=== PATIENT | female | born 1940 | race Caucasian/White ===

== ENCOUNTER → 2018-04-11 00:14 | Outpatient (CLI) | payer MEDICARE, MEDICAID, SELFPAY ==
--- NOTE | 2018-04-11 12:52 | MERGE_ITS ---
*[facility]* *[facility]* [address] [place] [address] Date of study: 04/11/2018 Transthoracic Echocardiography M-mode, complete 2D, complete spectral Doppler, and color Doppler *STUDY CONCLUSIONS* Summary: 1. Left ventricle: The cavity size was normal. The estimated ejection fraction was 65%. Stroke volume/bsa (LVOT, Doppler): 31ml/m^2. 2. Aortic valve: There was mild stenosis. Peak velocity (S): 1.6m/sec. Mean gradient (S): 4.8mm Hg. VTI ratio of LVOT to aortic valve: 0.61. Valve area (VTI): 1.6cm^2. 3. Mitral valve: There was moderate regurgitation. 4. Right ventricle: The cavity size was normal. Wall thickness was normal. Systolic function was normal. 5. Atrial septum: No defect or patent foramen ovale was identified. 6. Pulmonary arteries: Pulmonary systolic pressure was in the range of 20mm Hg to 30mm Hg. 7. Inferior vena cava: The vessel was normal in size. The respirophasic diameter changes were in the normal range (greater than or equal to 50%), consistent with normal central venous pressure. *PATIENT PRESENTATION* Height: 157.5cm ((62in) ) S/D Pressure: Weight: 42.2kg ((92.8lb) ) BSA: 1.35m^2 Test start time: 12:40 PM. Test stop time: 01:00 PM. ORDERING Sam Hartley MD REFERRING Sam Hartley MD PERFORMING Unknown PERFORMING [facility] [employer] CRANE Aurelia Bueno *PROCEDURE DATA* Procedure information: This study was interpreted by [facility]. Pertinent images and digital data are archived for permanent storage and are available for subsequent review. Comparison was made to the study of 06/25/2017. Transthoracic echocardiography. M-mode, complete 2D, complete spectral Doppler, and color Doppler. A Transthoracic Echocardiogram was performed. Scanning was performed from the parasternal, apical, subcostal, and suprasternal notch acoustic windows. Images were obtained using an FluGenusAQS 2000 cardiac ultrasound machine. Image quality was adequate. Study completion: The patient tolerated the procedure well. *CARDIAC ANATOMY* Left ventricle: The cavity size was normal. The estimated ejection fraction was 65%. The tissue Doppler parameters were normal. There was no evidence of elevated ventricular filling pressure by Doppler parameters. Aortic valve: Doppler: There was mild stenosis. VTI ratio of LVOT to aortic valve: 0.61. Valve area (VTI): 1.6cm^2. Indexed valve area (VTI): 1.2cm^2/m^2. Peak velocity ratio of LVOT to aortic valve: 0.29. Valve area (Vmax): 0.8cm^2. Indexed valve area (Vmax): 0.6cm^2/m^2. Mean velocity ratio of LVOT to aortic valve: 0.47. Valve area (Vmean): 1.3cm^2. Indexed valve area (Vmean): 0.9cm^2/m^2. Mean gradient (S): 4.8mm Hg. Peak gradient (S): 10.1mm Hg. Aorta: Aortic root: The aortic root was normal in size. Mitral valve: Doppler: There was no evidence for stenosis. There was moderate regurgitation. Valve area by pressure half-time: 3.9cm^2. Indexed valve area by pressure half-time: 2.9cm^2/m^2. Left atrium: The atrium was normal in size. Atrial septum: No defect or patent foramen ovale was identified. Right ventricle: The cavity size was normal. Wall thickness was normal. Systolic function was normal. Pulmonic valve: Doppler: There was no evidence for stenosis. There was no significant regurgitation. Peak gradient (S): 2.9mm Hg. Tricuspid valve: Doppler: There was mild regurgitation. Pulmonary artery: Poorly visualized. Pulmonary systolic pressure was in the range of 20mm Hg to 30mm Hg. Right atrium: The atrium was normal in size. Pericardium: There was no pericardial effusion. Systemic veins: Inferior vena cava: The vessel was normal in size. The respirophasic diameter changes were in the normal range (greater than or equal to 50%), consistent with normal central venous pressure. Measurements Left ventricle Value 06/25/2017 Reference LV ID, ED, PLAX 4.3 cm 4.1 3.5 - 6.0 LV ID, ES, PLAX 2.6 cm 2.1 2.1 - 4.0 LV PW thickness, ED, PLAX 0.9 cm 1.0 LV end-diastolic volume, 59 ml 68 1-p A2C LV ejection fraction, 1-p 35 % 63 A2C LV end-diastolic volume, 78 ml 57 1-p A4C LV ejection fraction, 1-p 47 % 63 A4C LV e', lateral 0.076 m/sec LV E/e', lateral 9 LV e', medial 0.061 m/sec LV E/e', medial 11 LV e', average 0.068 m/sec LV E/e', average 10 Ventricular septum Value 06/25/2017 Reference IVS thickness, ED, PLAX 0.9 cm 1.0 LVOT Value 06/25/2017 Reference LVOT ID, A-P 1.8 cm LVOT area 2.7 cm^2 3.1 LVOT peak velocity, S 0.47 m/sec 0.94 LVOT mean velocity, S 0.48 m/sec LVOT VTI, S 15.8 cm 18.9 LVOT peak gradient, S 0.9 mm Hg LVOT mean gradient, S 1.2 mm Hg 1.7 Stroke volume (SV), LVOT 42 ml 59 DP Stroke index (SV/bsa), 31 ml/m^2 47 LVOT DP Aortic valve Value 06/25/2017 Reference Aortic valve peak 1.6 m/sec 2.3 velocity, S Aortic valve mean 1 m/sec velocity, S Aortic valve VTI, S 26.1 cm Aortic mean gradient, S 4.8 mm Hg 7 Aortic peak gradient, S 10.1 mm Hg 20.6 VTI ratio, LVOT/AV 0.61 Aortic valve area, VTI 1.6 cm^2 1.5 Velocity ratio, peak, 0.29 LVOT/AV Aortic valve area, peak 0.8 cm^2 velocity Velocity ratio, mean, 0.47 LVOT/AV Aortic valve area, mean 1.3 cm^2 velocity Aortic valve area/bsa, 0.9 cm^2/m^2 mean velocity Aorta Value 06/25/2017 Reference Aortic root ID, ED 2.8 cm Left atrium Value 06/25/2017 Reference LA ID, A-P, ES 3.3 cm LA ID/bsa, A-P (H) 2.4 cm/m^2 <=2.2 LA area, ES, A4C 17.7 cm^2 16.6 8.8 - 23.4 LA/aortic root ratio 1.18 1.41 Mitral valve Value 06/25/2017 Reference Mitral E-wave peak 0.69 m/sec 0.94 velocity Mitral A-wave peak 0.86 m/sec 0.9 velocity Mitral deceleration time 197 ms 150 - 230 Mitral pressure half-time 57 ms 44 Mitral E/A ratio, peak 0.8 1.04 Mitral valve area, PHT, DP 3.9 cm^2 5 Tricuspid valve Value 06/25/2017 Reference Tricuspid regurg peak 2.4 m/sec 2.4 velocity Tricuspid peak RV-RA 23.9 mm Hg 22.3 gradient Right atrium Value 06/25/2017 Reference RA area, ES, A4C (L) 8.1 cm^2 11.6 8.3 - 19.5 Pulmonic valve Value 06/25/2017 Reference Pulmonic peak gradient, S 2.9 mm Hg 3 Legend: (L) and (H) alice values outside specified reference range. I have personally reviewed the images and have reviewed and edited the reported findings. Electronically signed by Sam Hartley MD 04/12/2018 09:34
== END ==
PROVIDERS: PCP Family Medicine; Visit Provider Internal Medicine Interventional Cardiology
DX: I25.10 Atherosclerotic heart disease of native coronary artery without angina pectoris (principal); I08.0 Rheumatic disorders of both mitral and aortic valves
CPT/HCPCS: 93306

== ENCOUNTER 2018-05-24 16:17 | Emergency (ER) | payer MEDICARE, MEDICAID, SELFPAY ==
[2018-05-24 16:24] VITALS: BP 129/77; PULSE 79; RESP 16; TEMP 36.8; O2SAT 96
--- NOTE | 2018-05-24 16:30 | DI.RAD_ITS ---
SYMPTOM/DIAGNOSIS: FELL ON OUTSTRETCHED HAND, PAIN RIGHT HAND: No acute fractures or dislocations are seen. Moderate degenerative changes are seen in the right hand, particularly the first carpal metacarpal joint. The bones are osteopenic. There is fusion of the DIP joint of the right little finger. The soft tissues are unremarkable. IMPRESSION: No acute fracture or dislocation. LEFT WRIST: Three views. No acute fracture or dislocation is seen. The bones are osteopenic. There are degenerative changes seen of the left wrist, particularly at the first carpal metacarpal joint. The soft tissues are unremarkable.
--- NOTE | 2018-05-24 16:31 | W.ED.GENAD ---
Discharge Plan Disposition Patient Disposition: HOME Condition: Improving Discharge Details Chief Complaint: Orthopedic Clinical Impression: Contusion of left wrist, Arthritis of finger of right hand Primary Care Provider: Bonilla Gill ED Provider: Sven Nses Home Meds and New Rx's Prescriptions: Continue aspirin [Ecotrin Low Strength] 81 MG tablet,delayed release (DR/EC) 1 tab PO DAILY RF: 0 geriatric emvlgjuo-yimd-hrnm [Central-Pilar for Seniors] 1 EACH tablet 1 tab PO DAILY RF: 0 nutritional supplements [Ensure Pudding] 113 GM pudding 1 canister PO DAILY Qty: 30 RF: 11 pantoprazole 40 MG tablet,delayed release (DR/EC) 40 mg PO DAILY Qty: 90 RF: 3 fluoxetine [Prozac] 40 MG capsule 40 mg PO DAILY Qty: 90 RF: 3 atorvastatin [Lipitor] 80 MG tablet 80 mg PO DAILY Qty: 90 RF: 3 tizanidine 2 MG tablet 2 mg PO BID PRNQty: 60 RF: 1 trazodone 50 MG tablet 25 - 50 mg PO HS PRNQty: 90 RF: 3 atenolol 25 MG tablet 25 mg PO DAILY Qty: 90 RF: 3 nitroglycerin [Nitrostat] 0.4 MG tablet, sublingual 0.4 mg Sublingual PRN Qty: 25 RF: 2 COMBIVENT RESPIMAT INHAL SPRAY 4 GM AER.W.ADAP 1 puff Inhalation QID prn Qty: 1 RF: 11 amlodipine 2.5 MG tablet 2.5 mg PO DAILY Qty: 180 RF: 4 lisinopril 40 MG tablet 20 mg PO DAILY Qty: 90 RF: 4 Discharge Instructions Instructions: Contusion in Adults (ED), Arthritis (ED), Wrist Sprain (ED) Additional Instructions: Your x-ray showed arthritis but no acute bone fracture. May use the wrist immobilizer, as needed for 5-7 days for comfort. Apply ice to reduce discomfort. Return to the emergency department for any acute concerns. Continue all of your regularly prescribed medications Medical Decision Making MDM Narrative Medical decision making narrative: 78-year-old female COPD who had a mechanical fall at home and fell on an outstretched left hand. She now has left distal radius pain and tenderness on exam. She also states she had mild injury to the right hand and has right fifth digit pain and swelling today. Differential diagnosis includes contusion or underlying fracture. Patient was referred for x-rays. Diagnostic imaging reveals right fifth digit degenerative arthritis, do not appreciate evidence of distal radius fracture. Right fifth digit iain taped for comfort. Patient's left distal radius persistently tender consistent with sprained wrist. Placed in a wrist immobilizer. Home management as well as follow-up and return precautions with the patient and her family at the bedside prior to dc. HPI - General Adult General Mode of arrival: wheelchair. Date/Time Provider Initiated Documentation: 05/24/18 16:19. Limitations to Documentation: no limitations. Information obtained by: patient and family. History of Present Illness 78 year old F presents to the emergency department with the chief complaint of L wrist pain after fall on outstretched pain, described as moderate, Quality is described as aching, and is localized to the left and upper extremity. Patient reports no radiation. Patient started experiencing this hour(s) and it has been constant. No relieving factors improve symptom(s), Movement worsens symptoms . Patient did receive the following treatments prior to arrival, none HPI Narrative: 78-year-old female presents with left wrist pain after fall on outstretched hand when she was bending over to rapid puzzle off the floor. She states she also fell yesterday and had mild injury to her left hand. At no point did she have loss of consciousness. She denies back, chest, abdominal pain. There is no numbness or weakness Related Data Home Medications Medication Instructions Recorded Confirmed aspirin [Ecotrin Low Strength] 1 tab PO DAILY tab-cap 12/11/12 05/24/18 geriatric ngywpiad-faag-muko 1 tab PO DAILY 12/11/12 05/24/18 [Central-Pilar for Seniors] tizanidine 2 mg PO BID PRN #60 tab-cap 04/04/18 05/24/18 trazodone 25 - 50 mg PO HS PRN #90 tab-cap 04/04/18 05/24/18 Previous Rx's Medication Instructions Recorded amlodipine 2.5 mg PO DAILY #180 tab-cap 06/26/17 lisinopril 20 mg PO DAILY #90 tab-cap 06/26/17 nutritional supplements [Ensure 1 canister PO DAILY #30 canister 07/24/17 Pudding] pantoprazole 40 mg PO DAILY #90 tab-cap 12/27/17 atenolol 25 mg PO DAILY #90 tab-cap 04/04/18 atorvastatin [Lipitor] 80 mg PO DAILY #90 tab-cap 04/04/18 fluoxetine [Prozac] 40 mg PO DAILY #90 tab-cap 04/04/18 nitroglycerin [Nitrostat] 0.4 mg SUBLINGUAL PRN #25 tab-cap 04/04/18 Allergies Allergy/AdvReac Type Severity Reaction Status Date / Time ciprofloxacin Allergy Severe HIVES; SOB Unverified 05/24/18 16:29 gemfibrozil Allergy Severe LOSES EYE Unverified 05/24/18 16:29 SIGHT talc Allergy Intermediate Other (See Unverified 05/24/18 16:29 Comment) diphenhydramine Allergy Mild ITCHING Unverified 05/24/18 16:29 adhesive Allergy Unknown Skin Rash Unverified 05/24/18 16:29 ibuprofen Allergy Unknown unknown Unverified 05/24/18 16:29 Penicillins Allergy Unknown Anaphylaxsi Unverified 05/24/18 16:29 s Sulfa (Sulfonamide Allergy Unknown unknown Unverified 05/24/18 16:29 Antibiotics) tetanus immune globulin Allergy Unknown unknown Unverified 05/24/18 16:29 isosorbide AdvReac Severe H/A'S Unverified 05/24/18 16:29 varenicline AdvReac Severe NIGHTMARES Unverified 05/24/18 16:29 nabumetone AdvReac Intermediate NAUSEA; Unverified 05/24/18 16:29 VOMITING simvastatin AdvReac Mild unknown Unverified 05/24/18 16:29 niacin AdvReac FLUSHING; Unverified 05/24/18 16:29 IRRITABILITY General Stated Complaint: Orthopedic JOSE L: 4 Review of Systems Review of Systems 6 systems reviewed and otherwise neg PFSH Medical History Anxiety COPD Depression Eczema Essential hypertension Hypercholesterolemia IRREGULAR HEART BEAT STROKE Skin lesion Stented coronary artery Social History Smoking/Tobacco Use Status: Current every day Surgical History Extraction of cataract Hernia Repair, Incisional Hysterectomy, Laproscopic Laparoscopic, Ovarian Cystectomy Exam Narrative Exam Narrative: GEN: awake, alert, oriented 3. Pleasant, well groomed, interactive. HEAD: Normocephalic, atraumatic ENT: Mucous membranes moist, oropharynx unremarkable, External ear exam unremarkable EYES: PERRL, EOMI NECK: Full ROM, no KYLE, no menigismus CHEST/RESP: Nontender, clear to auscultation bilateral, no wheeze/rhonchi/rales, diminished bilaterally CARDIOVASCULAR: RRR, no murmur, rub michaela. 2+ Rad pulse bilateral ABDOMEN: Soft, nontender, no mass. +Bowel sounds EXT: Full ROM, no edema, no rash. Tender left distal radius. 2+ radial pulse bilaterally. Sensation is intact throughout. The right fifth digit is tender, mildly swollen. Neuro: Grossly normal neurologic exam, conversant, interactive. Psych: Speech fluent, thoughts congruent, affect normal Course Vital Signs Temperature 36.8 C 05/24/18 16:24 Pulse 79 05/24/18 16:24 Respiratory Rate 16 05/24/18 16:24 Blood Pressure 129/77 05/24/18 16:24 Pulse Oximetry 96 05/24/18 16:24 Temperature 36.8 C 05/24/18 16:24 Pulse 79 05/24/18 16:24 Respiratory Rate 16 05/24/18 16:24 Blood Pressure 129/77 05/24/18 16:24 Pulse Oximetry 96 05/24/18 16:24
--- NOTE | 2018-05-24 16:35 | ED.GENADUL_ITS ---
Discharge Plan Disposition Patient Disposition: HOME Condition: Improving Discharge Details Chief Complaint: Orthopedic Clinical Impression: Contusion of left wrist, Arthritis of finger of right hand Primary Care Provider: Bonilla Gill ED Provider: Sven Ness Home Meds and New Rx's Prescriptions: Continue aspirin [Ecotrin Low Strength] 81 MG tablet,delayed release (DR/EC) 1 tab PO DAILY RF: 0 geriatric ribmjbvt-agej-xpvg [Central-Pilar for Seniors] 1 EACH tablet 1 tab PO DAILY RF: 0 nutritional supplements [Ensure Pudding] 113 GM pudding 1 canister PO DAILY Qty: 30 RF: 11 pantoprazole 40 MG tablet,delayed release (DR/EC) 40 mg PO DAILY Qty: 90 RF: 3 fluoxetine [Prozac] 40 MG capsule 40 mg PO DAILY Qty: 90 RF: 3 atorvastatin [Lipitor] 80 MG tablet 80 mg PO DAILY Qty: 90 RF: 3 tizanidine 2 MG tablet 2 mg PO BID PRNQty: 60 RF: 1 trazodone 50 MG tablet 25 - 50 mg PO HS PRNQty: 90 RF: 3 atenolol 25 MG tablet 25 mg PO DAILY Qty: 90 RF: 3 nitroglycerin [Nitrostat] 0.4 MG tablet, sublingual 0.4 mg Sublingual PRN Qty: 25 RF: 2 COMBIVENT RESPIMAT INHAL SPRAY 4 GM AER.W.ADAP 1 puff Inhalation QID prn Qty: 1 RF: 11 amlodipine 2.5 MG tablet 2.5 mg PO DAILY Qty: 180 RF: 4 lisinopril 40 MG tablet 20 mg PO DAILY Qty: 90 RF: 4 Discharge Instructions Instructions: Contusion in Adults (ED), Arthritis (ED), Wrist Sprain (ED) Additional Instructions: Your x-ray showed arthritis but no acute bone fracture. May use the wrist immobilizer, as needed for 5-7 days for comfort. Apply ice to reduce discomfort. Return to the emergency department for any acute concerns. Continue all of your regularly prescribed medications Medical Decision Making MDM Narrative Medical decision making narrative: 78-year-old female COPD who had a mechanical fall at home and fell on an outstretched left hand. She now has left distal radius pain and tenderness on exam. She also states she had mild injury to the right hand and has right fifth digit pain and swelling today. Differential diagnosis includes contusion or underlying fracture. Patient was referred for x -rays. Diagnostic imaging reveals right fifth digit degenerative arthritis, do not appreciate evidence of distal radius fracture. Right fifth digit iain taped for comfort. Patient's left distal radius persistently tender consistent with sprained wrist. Placed in a wrist immobilizer. Home management as well as follow-up and return precautions with the patient and her family at the bedside prior to dc. HPI - General Adult General Mode of arrival: wheelchair . Date/Time Provider Initiated Documentation: 05/24/18 16:19 . Limitations to Documentation: no limitations . Information obtained by: patient and family . History of Present Illness 78 year old F presents to the emergency department with the chief complaint of L wrist pain after fall on outstretched pain, described as moderate, Quality is described as aching, and is localized to the left and upper extremity. Patient reports no radiation. Patient started experiencing this hour(s) and it has been constant. No relieving factors improve symptom(s), Movement worsens symptoms . Patient did receive the following treatments prior to arrival, none HPI Narrative: 78-year-old female presents with left wrist pain after fall on outstretched hand when she was bending over to rapid puzzle off the floor. She states she also fell yesterday and had mild injury to her left hand. At no point did she have loss of consciousness. She denies back, chest, abdominal pain. There is no numbness or weakness Related Data Home Medications Medication Instructions Recorded Confirmed aspirin [Ecotrin Low Strength] 1 tab PO DAILY tab-cap 12/11/12 05/24/18 geriatric avizzrle-vkst-epsl 1 tab PO DAILY 12/11/12 05/24/18 [Central-Pilar for Seniors] tizanidine 2 mg PO BID PRN #60 tab-cap 04/04/18 05/24/18 trazodone 25 - 50 mg PO HS PRN #90 tab-cap 04/04/18 05/24/18 Previous Rx's Medication Instructions Recorded amlodipine 2.5 mg PO DAILY #180 tab-cap 06/26/17 lisinopril 20 mg PO DAILY #90 tab-cap 06/26/17 nutritional supplements [Ensure 1 canister PO DAILY #30 canister 07/24/17 Pudding] pantoprazole 40 mg PO DAILY #90 tab-cap 12/27/17 atenolol 25 mg PO DAILY #90 tab-cap 04/04/18 atorvastatin [Lipitor] 80 mg PO DAILY #90 tab-cap 04/04/18 fluoxetine [Prozac] 40 mg PO DAILY #90 tab-cap 04/04/18 nitroglycerin [Nitrostat] 0.4 mg SUBLINGUAL PRN #25 tab-cap 04/04/18 Allergies Allergy/AdvReac Type Severity Reaction Status Date / Time ciprofloxacin Allergy Severe HIVES; SOB Unverified 05/24/18 16:29 gemfibrozil Allergy Severe LOSES EYE Unverified 05/24/18 16:29 SIGHT talc Allergy Intermediate Other (See Unverified 05/24/18 16:29 Comment) diphenhydramine Allergy Mild ITCHING Unverified 05/24/18 16:29 adhesive Allergy Unknown Skin Rash Unverified 05/24/18 16:29 ibuprofen Allergy Unknown unknown Unverified 05/24/18 16:29 Penicillins Allergy Unknown Anaphylaxsi Unverified 05/24/18 16:29 s Sulfa (Sulfonamide Allergy Unknown unknown Unverified 05/24/18 16:29 Antibiotics) tetanus immune globulin Allergy Unknown unknown Unverified 05/24/18 16:29 isosorbide AdvReac Severe H/A'S Unverified 05/24/18 16:29 varenicline AdvReac Severe NIGHTMARES Unverified 05/24/18 16:29 nabumetone AdvReac Intermediate NAUSEA; Unverified 05/24/18 16:29 VOMITING simvastatin AdvReac Mild unknown Unverified 05/24/18 16:29 niacin AdvReac FLUSHING; Unverified 05/24/18 16:29 IRRITABILITY General Stated Complaint: Orthopedic JOSE L: 4 Review of Systems Review of Systems 6 systems reviewed and otherwise neg PFSH Medical History Anxiety COPD Depression Eczema Essential hypertension Hypercholesterolemia IRREGULAR HEART BEAT STROKE Skin lesion Stented coronary artery Social History Smoking/Tobacco Use Status: Current every day Surgical History Extraction of cataract Hernia Repair, Incisional Hysterectomy, Laproscopic Laparoscopic, Ovarian Cystectomy Exam Narrative Exam Narrative: GEN: awake, alert, oriented 3. Pleasant, well groomed, interactive. HEAD: Normocephalic, atraumatic ENT: Mucous membranes moist, oropharynx unremarkable, External ear exam unremarkable EYES: PERRL, EOMI NECK: Full ROM, no KYLE, no menigismus CHEST/RESP: Nontender, clear to auscultation bilateral, no wheeze/rhonchi/rales , diminished bilaterally CARDIOVASCULAR: RRR, no murmur, rub michaela. 2+ Rad pulse bilateral ABDOMEN: Soft, nontender, no mass. +Bowel sounds EXT: Full ROM, no edema, no rash. Tender left distal radius. 2+ radial pulse bilaterally. Sensation is intact throughout. The right fifth digit is tender, mildly swollen. Neuro: Grossly normal neurologic exam, conversant, interactive. Psych: Speech fluent, thoughts congruent, affect normal Course Vital Signs Temperature 36.8 C 05/24/18 16:24 Pulse 79 05/24/18 16:24 Respiratory Rate 16 05/24/18 16:24 Blood Pressure 129/77 05/24/18 16:24 Pulse Oximetry 96 05/24/18 16:24 Temperature 36.8 C 05/24/18 16:24 Pulse 79 05/24/18 16:24 Respiratory Rate 16 05/24/18 16:24 Blood Pressure 129/77 05/24/18 16:24 Pulse Oximetry 96 05/24/18 16:24
--- NOTE | 2018-05-24 17:43 | DI.VRAD_ITS ---
EXAM: XR Right Hand Complete, 3 or more Views EXAM DATE/TIME: 05/24/2018 4:31 PM CLINICAL HISTORY: 78 years old, female; Pain; Hand; Right TECHNIQUE: XR Right hand 3 or more views. COMPARISON: No relevant prior studies available. FINDINGS: Bones/joints: There is diffuse osteoporosis. Degenerative arthritis is seen within the first IP joint and the second-fifth PIP/DIP joints. The arthritic changes are most pronounced in the third and fifth DIP joints. Some arthritic narrowing is also present within the radial-carpal articulation and first-fifth MCP joints. Moderate degenerative arthritis is seen within the trapezium-first metacarpal articulation. No acute fracture identified. Soft tissues: Normal. IMPRESSION: No acute findings are detected. Dictated and Authenticated by: Jose Grove MD. Ordering:RENITA CLEMENTE MD
--- NOTE | 2018-05-24 17:44 | DI.VRAD_ITS ---
EXAM: XR Left Wrist Complete, 3 or more Views EXAM DATE/TIME: 05/24/2018 4:31 PM CLINICAL HISTORY: 78 years old, female; Pain; Wrist; Left TECHNIQUE: XR Left wrist 3 or more views. COMPARISON: CR - XR hand RT complete 05/24/2018 4:35 PM FINDINGS: Bones/joints: There is diffuse osteoporosis. Arthritic narrowing is seen within the radial-carpal articulation. Advanced degenerative arthritis is seen within the trapezium-first metacarpal articulation. The remaining articular interspaces of the wrist appear adequately maintained. No acute fracture is detected. Soft tissues: Normal. IMPRESSION: No acute findings are detected. Dictated and Authenticated by: Jose Grove MD. Ordering:RENITA CLEMENTE MD
== END 2018-05-24 17:59 | disposition home or self-care (01) ==
PROVIDERS: Emergency Provider Emergency Medicine; PCP Family Medicine
DX: S60.212A Contusion of left wrist, initial encounter (principal); W01.0XXA Fall on same level from slipping, tripping and stumbling without subsequent striking against object, initial encounter; M19.041 Primary osteoarthritis, right hand; I10 Essential (primary) hypertension; J44.9 Chronic obstructive pulmonary disease, unspecified; F17.210 Nicotine dependence, cigarettes, uncomplicated
CPT/HCPCS: 29125; 99284; 73110; 73130; L3908

== ENCOUNTER 2018-05-27 09:34 | Outpatient (CLI) | payer MEDICARE, MEDICAID, SELFPAY ==
--- NOTE | 2018-05-27 10:11 | DI.RAD_ITS ---
SYMPTOMS/DIAGNOSIS: PAIN IN HIP, M25.552, FALL, BURSITIS VS FX LEFT HIP AND PELVIS: There are minimal degenerative changes involving the hip joint. There is no evidence of a fracture or dislocation.
== END 2018-05-27 09:54 ==
PROVIDERS: PCP Family Medicine; Visit Provider Family Medicine
DX: M25.552 Pain in left hip (principal); M16.12 Unilateral primary osteoarthritis, left hip
CPT/HCPCS: 73502

== ENCOUNTER 2018-12-02 17:43 | Emergency (ER) | payer MEDICARE, MEDICAID, SELFPAY ==
[2018-12-02 17:45] VITALS: BP 178/91; PULSE 78; RESP 18; TEMP 36.8; O2SAT 96
--- NOTE | 2018-12-02 18:28 | ED.GENADUL_ITS ---
Discharge Plan Disposition Patient Disposition: HOME Condition: Good Discharge Details Chief Complaint: Abd Prob Clinical Impression: Abdominal pain Reason For Visit: GORGE Primary Care Provider: Bonilla Gill ED Provider: Madhu Guillen Home Meds and New Rx's Prescriptions: Continued aspirin [Ecotrin Low Strength] 81 MG tablet,delayed release (DR/EC) 1 tab PO DAILY RF: 0 Central-Pilar [facility] [employer] 1 EACH tablet 1 tab PO DAILY RF: 0 Ensure Pudding 113 GM pudding 1 canister PO DAILY Qty: 30 RF: 11 pantoprazole 40 MG tablet,delayed release (DR/EC) 40 mg PO DAILY Qty: 90 RF: 3 fluoxetine [Prozac] 40 MG capsule 40 mg PO DAILY Qty: 90 RF: 3 atorvastatin [Lipitor] 80 MG tablet 80 mg PO DAILY Qty: 90 RF: 3 tizanidine 2 MG tablet 2 mg PO BID PRNQty: 60 RF: 1 trazodone 50 MG tablet 25 - 50 mg PO HS PRNQty: 90 RF: 3 atenolol 25 MG tablet 25 mg PO DAILY Qty: 90 RF: 3 nitroglycerin [Nitrostat] 0.4 MG tablet, sublingual 0.4 mg Sublingual PRN Qty: 25 RF: 2 lisinopril 40 mg tablet 40 mg PO DAILY Qty: 90 RF: 4 amlodipine 2.5 mg tablet 2.5 mg PO BID Qty: 180 RF: 4 Discharge Instructions Additional Instructions: Your laboratory studies look okay tonight. Your CT scan shows that the abdominal aneurysm is a little bit larger. You also have some worsening of the right kidney swelling that is been present previously. Both will need to be followed up and you should contact her primary care physician for referral to vascular surgery and to urology. Return to emergency department for fever, vomiting, new pain, other concerns. Referrals: Bonilla Gill [Primary Care Provider] - Medical Decision Making Patient presenting to ED with reported new abdominal pain that is different from her chronic abdominal pain. She has decent vital signs, and in fact she is hypertensive. Her abdomen is completely benign to my exam. Highly doubt that there is any compromise to her AAA. She does have prior history of multiple surgeries on her abdomen as well as pancreatitis. Will place IV and get laboratory studies. We will give fluids and obtain CT of the abdomen pelvis. I have not offered her pain medication and she has not asked for any. Laboratory studies show normal white count. She also has normal hemoglobin. Her creatinine is just a little up at 1.16. Electrolytes are fine. Liver function fine. Troponin negative. Lipase normal. Urinalysis with a few white and red cells but without significant urinary symptoms would hold off treating. CT scan shows that the AAA is intact. There is a little bit larger from 5.1 to 5.4. She is also found to have an atrophic left kidney with cyst which is not new. She has increased hydro-ureter nephrosis on the right. It has been present previously but is worse it is unlikely to be causing her pain. She does have constipation but otherwise no acute findings. Patient with increased size of her AAA but no rupture. She is still below 5.5 cm. She reports being referred to vascular at [facility] but has not yet been seen. She also has worsening of right hydroureteronephrosis which should also be worked up as outpatient. She is referred back to primary care for these referrals and evaluation. She is discharged home to continue current medical regimen. Return to ED for fever, vomiting, new pain. Medical Records Medical records reviewed: Yes I reviewed the patient's medical records. Lab Data Lab results reviewed: Yes I reviewed the patient's lab results. HPI General Mode of arrival: EMS . Date/Time Provider Initiated Documentation: 12/02/18 17:54 . Limitations to Documentation: no limitations . Information obtained by: patient and EMS . HPI Narrative: Patient presents to ED for abdominal pain. Patient is a relatively poor historian. She does have a history of chronic abdominal pain. She states that this pain seems different to her. She reports some loose stool but no nausea/vomiting. She denies fever. She denies urinary symptoms. She denies back pain. She denies chest pain or shortness of breath. She tried to contact her primary care this morning. She did not get a call back until this afternoon. She was told that she should come to the emergency department to make sure that her AAA was okay. Related Data Home Medications Medication Instructions Recorded Confirmed Central-Pilar [facility] [employer] 1 tab PO DAILY 12/11/12 10/29/18 aspirin [Ecotrin Low Strength] 1 tab PO DAILY tab-cap 12/11/12 10/29/18 Ensure Pudding 1 canister PO DAILY #30 canister 07/24/17 10/29/18 pantoprazole 40 mg PO DAILY #90 tab-cap 12/27/17 10/29/18 atenolol 25 mg PO DAILY #90 tab-cap 04/04/18 10/29/18 atorvastatin [Lipitor] 80 mg PO DAILY #90 tab-cap 04/04/18 10/29/18 fluoxetine [Prozac] 40 mg PO DAILY #90 tab-cap 18 10/29/18 nitroglycerin [Nitrostat] 0.4 mg SUBLINGUAL PRN #25 tab-cap 04/04/18 10/29/18 tizanidine 2 mg PO BID PRN #60 tab-cap 04/04/18 10/29/18 trazodone 25 - 50 mg PO HS PRN #90 tab-cap 04/04/18 10/29/18 lisinopril 40 mg tablet 40 mg PO DAILY #90 tab-cap 07/18/18 10/29/18 amlodipine 2.5 mg tablet 2.5 mg PO BID #180 tab-cap 07/25/18 10/29/18 Previous Rx's Medication Instructions Recorded Ensure Pudding 1 canister PO DAILY #30 canister 07/24/17 pantoprazole 40 mg PO DAILY #90 tab-cap 12/27/17 atenolol 25 mg PO DAILY #90 tab-cap 04/04/18 atorvastatin [Lipitor] 80 mg PO DAILY #90 tab-cap 04/04/18 fluoxetine [Prozac] 40 mg PO DAILY #90 tab-cap 04/04/18 nitroglycerin [Nitrostat] 0.4 mg SUBLINGUAL PRN #25 tab-cap 04/04/18 lisinopril 40 mg tablet 40 mg PO DAILY #90 tab-cap 07/18/18 amlodipine 2.5 mg tablet 2.5 mg PO BID #180 tab-cap 07/25/18 Allergies Allergy/AdvReac Type Severity Reaction Status Date / Time ciprofloxacin Allergy Severe HIVES; SOB Unverified 10/29/18 14:02 gemfibrozil Allergy Severe LOSES EYE Unverified 10/29/18 14:02 SIGHT talc Allergy Intermediate Other (See Unverified 10/29/18 14:02 Comment) diphenhydramine Allergy Mild ITCHING Unverified 10/29/18 14:02 adhesive Allergy Unknown Skin Rash Unverified 10/29/18 14:02 ibuprofen Allergy Unknown unknown Unverified 10/29/18 14:02 Penicillins Allergy Unknown Anaphylaxsi Unverified 10/29/18 14:02 s Sulfa (Sulfonamide Allergy Unknown unknown Unverified 10/29/18 14:02 Antibiotics) tetanus immune globulin Allergy Unknown unknown Unverified 10/29/18 14:02 isosorbide AdvReac Severe H/A'S Unverified 10/29/18 14:02 varenicline AdvReac Severe NIGHTMARES Unverified 10/29/18 14:02 nabumetone AdvReac Intermediate NAUSEA; Unverified 10/29/18 14:02 VOMITING simvastatin AdvReac Mild unknown Unverified 10/29/18 14:02 niacin AdvReac FLUSHING; Unverified 10/29/18 14:02 IRRITABILITY General Stated Complaint: Abd Prob JOSE L: 3 Review of Systems Constitutional Denies chills, Denies fever(s), Denies headache(s), Denies malaise and Denies weakness ENT Denies otalgia, Denies facial pain, Denies headache(s) and Denies neck pain Cardiovascular Denies chest pain, Denies diaphoresis, Denies syncope and Denies dyspnea Respiratory Denies cough and Denies dyspnea Gastrointestinal Reports abdominal pain, Denies diarrhea, Reports loose stools, Denies nausea and Denies vomiting Genitourinary Denies dysuria, Denies pelvic pain and Denies flank pain Musculoskeletal Denies back pain, Denies neck pain and Denies numbness Integumentary/Breasts Denies rash Neurologic Denies syncope, Denies headache(s), Denies focal weakness, Denies numbness and Denies weakness [facility] Medical History ASCVD (arteriosclerotic cardiovascular disease) (Chronic 04/26/11) Abdominal aortic aneurysm (Chronic 12/31/13) Anxiety and depression (Chronic) COPD (Chronic) Eczema (Chronic) Essential hypertension (Chronic) Hypercholesterolemia (Chronic) IRREGULAR HEART BEAT (Chronic) STROKE (Chronic) Skin lesion (Chronic) Stented coronary artery (Chronic) Surgical History Extraction of cataract (Inactive) Hernia Repair, Incisional (Inactive) Hysterectomy, Laproscopic (Inactive) Laparoscopic, Ovarian Cystectomy (Inactive) Social History Smoking/Tobacco Use Status: Current every day Tobacco Type: cigarettes Alcohol Intake: never Drug use: Never Substance use type: does not use Do you feel safe at home: Yes Do you feel safe in your relationship?: Yes Exam Const General: cooperative and no acute distress Orientation: alert and oriented x3 HENMT Head: normocephalic and atraumatic Neck Neck: trachea midline and supple Resp Effort & Inspection: normal respiratory effort Auscultation: clear to auscultation bilaterally Cardio Rate: regular rate Rhythm: regular rhythm Heart Sounds: S1 normal and S2 normal Pulses: radial pulses present GI Inspection: normal to inspection and non-distended Palpation: soft, not firm and nontender Skin Rashes: no rashes Neuro General: alert, oriented x3, no focal motor deficits and CN's II-XI intact bilaterally Extrem General: no pedal edema Course Vital Signs Temperature 98.2 F 12/02/18 17:45 Pulse 78 12/02/18 17:45 Respiratory Rate 18 12/02/18 17:45 Blood Pressure 178/91 H 12/02/18 17:45 Pulse Oximetry 96 12/02/18 17:45 Temperature 98.2 F 12/02/18 17:45 Temperature Source Temporal Artery Scan 12/02/18 17:45 Pulse 78 12/02/18 17:45 Respiratory Rate 18 12/02/18 17:45 Respiratory Effort Non-Labored 12/02/18 17:50 Blood Pressure 178/91 H 12/02/18 17:45 Pulse Oximetry 96 12/02/18 17:45 Oxygen Delivery Method Room Air 12/02/18 17:45 Oxygen Flow Rate 0 12/02/18 17:45
--- NOTE | 2018-12-02 18:29 | DI.CT_ITS ---
SYMPTOMS/DIAGNOSIS: ABDOMINAL PAIN CT OF THE ABDOMEN AND PELVIS: Comparison is made with December,. Images were performed from the lung bases through the ischial tuberosities after IV and without oral contrast. Emphysematous changes are seen at the lung bases. There has been mild interval increase in size of the previously noted saccular abdominal aortic aneurysm, now measuring 5.4 cm. Directly beneath the larger aneurysm, there is a smaller area of aneurysmal dilatation measuring 3.2 cm, unchanged. There is no evidence of aneurysmal leak. There is heavy calcification along the aorta and iliac arteries. There is narrowing of the luminal diameter of the iliac and common femoral arteries. The celiac axis and SMA appear patent. The left kidney is again noted to be atrophic. There are again noted to be multiple bilateral renal cysts. The right renal pelvis is dilated and appears to have increased when compared with the previous exam. No obstructing stone is seen. The bladder is unremarkable. There is a moderate quantity of stool. Diverticulosis is noted. There is no evidence of diverticulitis. The appendix and small bowel are unremarkable. There is no free air or free fluid. There has been a previous umbilical hernia repair. Degenerative changes are seen in the spine. IMPRESSION: 1. Interval increase in size of abdominal aortic aneurysm to 5.4 from 5.1 cm. 2. Interval increase in degree of hydronephrosis, now moderate to severe, of the right kidney. Stable atrophic left kidney.
[2018-12-02 18:32] LABS: Abs Immature Grans 0.01 k/cumm (0.0-0.09); Absolute Basophil Count 0.03 k/cumm (0.0-0.2); Absolute Eosinophil Count 0.13 k/cumm (0.0-0.7); Absolute Monocyte Count 0.36 k/cumm (0.11-0.7); Absolute Neutrophil Count 4.98 k/cumm (1.2-6.7); Basophils % 0.4; Eosinophils % 1.8; HCT 40.7 % (36.0-46.0); Immature Grans % 0.1; Lymphocytes % 22.5; Mean Corp. HGB Concentration 34.4 g/dL (32.0-36.0); Mean Corpuscular Hemoglobin 31.5 pg (27.0-33.0); Mean Corpuscular Volume 91.7 fL (80-95); Mean Platelet Volume 10.3 fL (8.0-11.0); Monocytes % 5.1; Neutrophils % 70.1; Platelet Count 174 x1000/uL (130-400); RBC 4.44 m/cumm (4.00-5.20); RBC Distribution Width 12.4 % (11.7-14.6); White Blood Cell Count 7.11 k/cumm (4.4-10.8)
[2018-12-02] MEDS: Lactated Ringers 1,000 ML 125 ML IV (18:33)
[2018-12-02 18:35] LABS: ALT 27 U/L (12-78); AST 31 U/L (15-37); Albumin 3.7 g/dL (3.4-5.0); Alkaline Phosphatase 98 U/L (46-116); Anion Gap 11.2 mmol/L (3-11); BUN 14 mg/dL (7-18); Bilirubin, Total 0.8 mg/dL (0.2-1.0); CO2 27.8 mmol/L (21.0-32.0); CREATININE 1.16 mg/dL (0.55-1.02); Calcium 9.2 mg/dL (8.5-10.1); Chloride 103 mmol/L (98-107); Glucose 98 mg/dL (70-100); Magnesium 1.8 mg/dL (1.8-2.4); Potassium 3.7 mmol/L (3.5-5.1); Sodium 142 mmol/L (136-145); Total Protein 6.8 g/dL (6.4-8.2)
[2018-12-02 18:44] LABS: Troponin I < 0.02 ng/mL (0.00-0.06)
[2018-12-02 18:58] LABS: Lipase 148 U/L (73-393)
[2018-12-02] MEDS: Omnipaque 350 MG/ML 100 ML BTL IV (19:46)
--- NOTE | 2018-12-02 20:27 | DI.VRAD_ITS ---
EXAM: CT Abdomen and Pelvis With Contrast EXAM DATE/TIME: 12/02/2018 6:31 PM CLINICAL HISTORY: 78 years old, female; Signs and symptoms; Other: Abdominal pain; Prior surgery; Surgery date: 6+ months; Surgery type: Hernia repair and more TECHNIQUE: Imaging protocol: Axial computed tomography images of the abdomen and pelvis with intravenous contrast. Coronal and sagittal reformatted images were created and reviewed. Radiation optimization: All CT scans at this facility use at least one of these dose optimization techniques: automated exposure control; mA and/or kV adjustment per patient size (includes targeted exams where dose is matched to clinical indication); or iterative reconstruction. Contrast material: omnipaque 350 Contrast volume: 61 ml Contrast route: iv COMPARISON: CT ABD PELVIS WO CONTRAST 12/11/2017 3:02 PM FINDINGS: Lower thorax: The visualized portions of the heart and pericardium appear within normal limits. There are coronary artery calcifications. There are emphysematous changes at the lung bases. ABDOMEN: Liver: The liver is within normal limits. Gallbladder and bile ducts: The gallbladder is unremarkable. Pancreas: The pancreas is within normal limits. Spleen: The spleen is within normal limits. Adrenals: The adrenal glands are unremarkable. Kidneys and ureters: The left kidney is atrophic. There are multiple left renal cysts. The largest of which is in the mid to upper pole region measuring up to 2.5 cm. There is moderate hydroureteronephrosis of the right kidney. A stricture at the level of the right UPJ is not excluded. Clinical correlation is recommended. Further evaluation could be obtained with a retrograde study. There is a cyst in the upper pole of the right kidney measuring approximately 1.2 cm. There is a small calcification associated with the cyst measuring approximately 3 mm. There is a tiny probable cyst in the lower pole of the right kidney measuring 7 mm. Stomach and bowel: There are feces within the colon which are suspicious for constipation. There are diverticuli of the colon. Appendix: No evidence of appendicitis. PELVIS: Bladder: The urinary bladder is within normal limits. Reproductive: The patient is status post hysterectomy. ABDOMEN and PELVIS: Intraperitoneal space: Normal. No free air. No significant fluid collection. Bones/joints: There are degenerative changes of the thoracic and lumbar spines. There are degenerative changes of both hips. Soft tissues: The patient is status post umbilical hernia repair Vasculature: There are arteriosclerotic changes of the thoracic and abdominal aortas. There is in infrarenal abdominal aortic aneurysm. This measures up to 5.4 cm. This was present on the earlier study where it measured up to 5.1 cm. There is a large mural thrombus. Lymph nodes: No enlarged lymph nodes. IMPRESSION: Aneurysmal dilatation of the infrarenal abdominal aorta measuring up to 5.4 cm. It previously measured approximately 5.1 cm. Status post hysterectomy. Status post umbilical hernia repair. Atrophic left kidney. Multiple left renal cysts. Moderate hydroureteronephrosis of the right kidney. The right kidney is obstructed at the level of the UPJ. A stricture at this level is not excluded. This could be reevaluated with a retrograde study if clinically warranted. Suspect constipation. Diverticuli of the colon. Osseous findings as above. Emphysematous changes as above. Dictated and Authenticated by: Luiz Lopez MD. Ordering:DARIA Leung MD
[2018-12-02 20:28] LABS: Bilirubin Negative (Negative); Blood Small (Negative); Clarity Clear; Glucose Negative (Negative); Ketones Negative (Negative); Leukocyte Esterase Trace (Negative); Nitrite Negative (Negative); Urobilinogen 0.2 EU/dL (Up TO 0.2)
[2018-12-02 20:50] LABS: Bacteria Few HPF (Negative); C & S Indicated? Yes; Casts Negative LPF (Negative); Crystals Negative HPF (Negative); Epithelial Cells Few HPF (Negative); Mucus Negative (Negative)
== END 2018-12-02 21:30 | disposition home or self-care (01) ==
PROVIDERS: Emergency Provider Emergency Medicine; PCP Family Medicine
DX: R10.9 Unspecified abdominal pain (principal); N13.39 Other hydronephrosis; N26.1 Atrophy of kidney (terminal); N28.1 Cyst of kidney, acquired; I10 Essential (primary) hypertension; I71.4 Abdominal aortic aneurysm, without rupture
CPT/HCPCS: 36415; 80053; 83690; 96360; 96361; 99285; 74177; 81003; 81015; 83735; 84484; 85025; 87086; 99284; J3490

== ENCOUNTER 2018-12-04 11:39 | Emergency (ER) | payer MEDICARE, MEDICAID, SELFPAY ==
--- NOTE | 2018-12-04 12:12 | ED.GENADUL_ITS ---
Discharge Plan Disposition Patient Disposition: HOME Condition: Good Discharge Details Chief Complaint: Abd Prob Clinical Impression: Abdominal pain, Acute UTI Primary Care Provider: Bonilla Gill ED Provider: Timothy Muniz Home Meds and New Rx's Prescriptions: No Action aspirin [Ecotrin Low Strength] 81 MG tablet,delayed release (DR/EC) 1 tab PO DAILY RF: 0 Central-Pilar [facility] 1 EACH tablet 1 tab PO DAILY RF: 0 Ensure Pudding 113 GM pudding 1 canister PO DAILY Qty: 30 RF: 11 pantoprazole 40 MG tablet,delayed release (DR/EC) 40 mg PO DAILY Qty: 90 RF: 3 fluoxetine [Prozac] 40 MG capsule 40 mg PO DAILY Qty: 90 RF: 3 atorvastatin [Lipitor] 80 MG tablet 80 mg PO DAILY Qty: 90 RF: 3 tizanidine 2 MG tablet 2 mg PO BID PRNQty: 60 RF: 1 trazodone 50 MG tablet 25 - 50 mg PO HS PRNQty: 90 RF: 3 atenolol 25 MG tablet 25 mg PO DAILY Qty: 90 RF: 3 nitroglycerin [Nitrostat] 0.4 MG tablet, sublingual 0.4 mg Sublingual PRN Qty: 25 RF: 2 lisinopril 40 mg tablet 40 mg PO DAILY Qty: 90 RF: 4 amlodipine 2.5 mg tablet 2.5 mg PO BID Qty: 180 RF: 4 Discharge Instructions Instructions: Urinary Tract Infection in Women (ED) Additional Instructions: If you notice any worsening of your symptoms, or any new symptoms such as vomiting, diarrhea, fever, chills, shortness of breath, chest pain, numbness, weakness, or fainting , please return immediately to the emergency department for reevaluation. Please follow up with your primary care provider as soon as possible for reassessment and reevaluation. As always, it was a pleasure participating in your medical care today. Referrals: Bonilla Gill [Primary Care Provider] - Discharge Data Discharge Date/Time-TO BE ENTERED AT DEPARTURE: 12/04/18 16:21 Medical Decision Making This is a pleasant 78-year-old female with a past medical history of AAA, as well as chronic right hydronephrosis, who presents today for evaluation of mild abdominal pain. She was seen and assessed here within the last 72 hours, and a thorough workup by my colleague Dr. Guillen, which time a CT angiogram showing interval increase in her AAA size, but the size still being less than 5.5 cm. At that time the remainder of her laboratory workup was relatively benign. The patient stated that she did have a referral back to [facility] vascular already, she was encouraged to continue follow-up with this, as well as close follow-up on an outpatient basis with her primary care provider for evaluation of her hydronephrosis and hydroureter. She presents today with mild but continued pain with the additional complaint that the pain similar to the sensation of bugs crawling around in her abdomen. She has been eating and drinking well, she denies any vomiting or diarrhea. She is also worried that she will not be able to care for her at home. Repeat laboratory analys is demonstrates slight worsening of her kidney function, most likely secondary to contrast dye which was a necessity on her last visit. He has any interval worsening of her renal function I did discuss with her the risks and benefits of repeat CT imaging versus ultrasound shared decision making process patient would prefer to hold off on contrast and radiographic imaging and stick with ultrasonography. Ultrasound was ordered and demonstrates AAA still being notably less than 5.5 cm. At its maximal width. The remainder of the patient's laboratory workup was relatively benign, however there was evidence of slightly worsening of a BC count in her urine, I am concerned that the patient's symptoms may be also related to a mild urinary tract infection. The patient has multiple biotic allergies, and so patient was given a single therapeutic dose of 3 g of fosfomycin here in the emergency department. Additionally with the patient's complaints of concerned that she would not be able to care for her I did discuss getting case management involved. Patient states that she has multiple resources at home, and would not like to talk to anyone else about getting more help, I have all the help I need. I did press the issue further, the patient made it exquisitely clear that she did not want any additional resources at home at this time as she does have help with a young man currently is watching her right now. Additionally I discussed with her she would like to speak with someone about her depressed mood, and she again reiterated that she did not want to talk about it with anyone else. I did contact the patient's daughter, and discussed the case with her over speaker phone at the patient's request, including the imaging findings. Prior to discharge I reiterated the importance of close follow-up with her primary care provider as well as repeat visitation with her vascular surgeon at [facility]. With pain being well controlled, and no signs of worsening AAA, and a very stable hemodynamic component at this time, I feel that the patient can be safely discharged home at this time she currently shows no clinical signs of significant abdominal pathology, or other issue requiring admission or transfer at this time. I have extensively reviewed the treatment plan and discharge instructions with the patient. I have addressed all patient concerns at this time. The patient was made aware of what symptoms to monitor for that would warrant a return to the emergency department. Discussed the plan with the patient, they demonstrate verbal understanding and agreement with our assessment and plan at this time. EKG 12: 16 Rate 68, intervals normal, sinus rhythm, no significant ST elevations or depressions, inverted T wave in V1, no Q waves. ABDOMINAL AORTIC ANEURYSM ULTRASOUND: The study was carried out to assess the status of the aorta and is compared with a prior CT of 12/02/2018. On today's examination, the aorta has a maximal transverse diameter of 4.89 cm and an AP diameter of 4.93 cm. Again noted is mural thrombus. There is nothing to suggest a dissection or leak. SUMMARY: No interval change in the status of an abdominal aortic aneurysm, which by ultrasound today has a maximal AP diameter of 4.9 cm and a maximal transverse diameter of 4.9 cm. HPI General Date/Time Provider Initiated Documentation: 12/04/18 12:00 . HPI Narrative: This is a 78-year-old female with a past medical history of abdominal aortic aneurysm, who presents today for evaluation of abdominal pain. Patient states that she was seen here and assessed less than 72 hours ago. At that time a CT angiogram was performed and demonstrated her chronic abdominal aortic aneurysm to be measured at a size of 5.4 cm, she also has slight interval increase in her chronic right-sided hydronephrosis the right as well. The remainder of the patient's laboratory workup at that time was benign she was discharged home with close follow-up with her specialist at [facility]. The patient comes in today stating continued presence of mild abdominal pain. She states that it is worse on the left than the right. She states that it feels like there are bugs running around in my belly. She denies any tearing sensation, ripping sensation, chest pain, shortness of breath, numbness tingling or weakness. She denies any hematuria, vomiting, diarrhea. He states that the symptoms are relatively mild. They did get slightly worse at 8 AM this morning. Patient also notes that she is also very concerned in general that she will not be able to take care of her , who is currently at home requiring medical assistance. He states that she feels sad, with a depressed mood, but she denies any homicidal or suicidal ideations. Patient has no other complaints at this time. Related Data Home Medications Medication Instructions Recorded Confirmed Central-Pilar [facility]iors 1 tab PO DAILY 12/11/12 12/04/18 aspirin [Ecotrin Low Strength] 1 tab PO DAILY tab-cap 12/11/12 12/04/18 Ensure Pudding 1 canister PO DAILY #30 canister 07/24/17 12/04/18 pantoprazole 40 mg PO DAILY #90 tab-cap 12/27/17 12/04/18 atenolol 25 mg PO DAILY #90 tab-cap 04/04/18 12/04/18 atorvastatin [Lipitor] 80 mg PO DAILY #90 tab-cap 04/04/18 12/04/18 fluoxetine [Prozac] 40 mg PO DAILY #90 tab-cap 04/04/18 12/04/18 nitroglycerin [Nitrostat] 0.4 mg SUBLINGUAL PRN #25 tab-cap 04/04/18 12/04/18 tizanidine 2 mg PO BID PRN #60 tab-cap 04/04/18 12/04/18 trazodone 25 - 50 mg PO HS PRN #90 tab-cap 04/04/18 12/04/18 lisinopril 40 mg tablet 40 mg PO DAILY #90 tab-cap 07/18/18 12/04/18 amlodipine 2.5 mg tablet 2.5 mg PO BID #180 tab-cap 07/25/18 12/04/18 Previous Rx's Medication Instructions Recorded Ensure Pudding 1 canister PO DAILY #30 canister 07/24/17 pantoprazole 40 mg PO DAILY #90 tab-cap 12/27/17 atenolol 25 mg PO DAILY #90 tab-cap 04/04/18 atorvastatin [Lipitor] 80 mg PO DAILY #90 tab-cap 04/04/18 fluoxetine [Prozac] 40 mg PO DAILY #90 tab-cap 04/04/18 nitroglycerin [Nitrostat] 0.4 mg SUBLINGUAL PRN #25 tab-cap 04/04/18 lisinopril 40 mg tablet 40 mg PO DAILY #90 tab-cap 07/18/18 amlodipine 2.5 mg tablet 2.5 mg PO BID #180 tab-cap 07/25/18 Allergies Allergy/AdvReac Type Severity Reaction Status Date / Time ciprofloxacin Allergy Severe HIVES; SOB Unverified 12/04/18 12:37 gemfibrozil Allergy Severe LOSES EYE Unverified 12/04/18 12:37 SIGHT talc Allergy Intermediate Other (See Unverified 12/04/18 12:37 Comment) diphenhydramine Allergy Mild ITCHING Unverified 12/04/18 12:37 adhesive Allergy Unknown Skin Rash Unverified 12/04/18 12:37 ibuprofen Allergy Unknown unknown Unverified 12/04/18 12:37 Penicillins Allergy Unknown Anaphylaxsi Unverified 12/04/18 12:37 s Sulfa (Sulfonamide Allergy Unknown unknown Unverified 12/04/18 12:37 Antibiotics) tetanus immune globulin Allergy Unknown unknown Unverified 12/04/18 12:37 isosorbide AdvReac Severe H/A'S Unverified 12/04/18 12:37 varenicline AdvReac Severe NIGHTMARES Unverified 12/04/18 12:37 nabumetone AdvReac Intermediate NAUSEA; Unverified 12/04/18 12:37 VOMITING simvastatin AdvReac Mild unknown Unverified 12/04/18 12:37 niacin AdvReac FLUSHING; Unverified 12/04/18 12:37 IRRITABILITY General JOSE L: 3 Review of Systems Review of Systems All systems reviewed & are unremarkable except as noted in HPI and below PFSH Social History Smoking/Tobacco Use Status: Current every day Tobacco Type: cigarettes Alcohol Intake: never Drug use: Never Substance use type: does not use Do you feel safe at home: Yes Do you feel safe in your relationship?: Yes Exam Narrative Exam Narrative: 1.Const: Well-nourished, Well-developed, appearing stated age 2.Eyes: PERRL, no conjunctival injection, and symmetrical lids. 3.ENT: Atraumatic external nose and ears. Moist MM. Neck: Symmetric, trachea midline, No thyromegaly. 4.CVS: +S1/S2, No murmurs or gallops. Peripheral pulses 2+ and equal in all extremities. Brisk capillary refill in all extremities. Lower extremities demonstrate intact her cells pedis posterior tibial pulses bilaterally with brisk capillary refill throughout. Normal strength and sensation. 5.RESP: Unlabored respiratory effort. Clear to auscultation bilaterally. No wheezes rales or rhonchi 6.GI: Soft, Nondistended, No hepatosplenomegaly. No guarding or rebound. No pulsatile abdominal mass. No signs of an acute surgical abdomen. Minimal focal tenderness throughout, no right lower quadrant pain palpation. No CVA tenderness. 7.MSK: Normocephalic/Atraumatic, Extremities w/o deformity or ttp No cyanosis or clubbing, Normal movement of all extremities 8.Skin: Warm, Dry. No rashes or lesions. 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 Sensation grossly intact, no focal neurologic deficits. 10.Psych: (AAO) x3. Appropriate mood and affect
[2018-12-04 12:33] VITALS: BP 128/72; PULSE 77; RESP 16; TEMP 36.8; O2SAT 96
[2018-12-04 12:37] LABS: Abs Immature Grans 0.02 k/cumm (0.0-0.09); Absolute Basophil Count 0.02 k/cumm (0.0-0.2); Absolute Eosinophil Count 0.12 k/cumm (0.0-0.7); Absolute Lymphocyte Count 1.28 k/cumm (1.2-3.4); Absolute Monocyte Count 0.43 k/cumm (0.11-0.7); Absolute Neutrophil Count 4.47 k/cumm (1.2-6.7); Basophils % 0.3; Eosinophils % 1.9; HCT 40.5 % (36.0-46.0); Immature Grans % 0.3; Lymphocytes % 20.2; Mean Corp. HGB Concentration 34.6 g/dL (32.0-36.0); Mean Corpuscular Hemoglobin 31.8 pg (27.0-33.0); Monocytes % 6.8; Neutrophils % 70.5; Platelet Count 155 x1000/uL (130-400); RBC Distribution Width 12.2 % (11.7-14.6); White Blood Cell Count 6.34 k/cumm (4.4-10.8)
[2018-12-04] MEDS: Normal Saline 1,000 ML 1000 ML IV (12:43)
[2018-12-04 12:51] LABS: ALT 26 U/L (12-78); AST 34 U/L (15-37); Albumin 3.5 g/dL (3.4-5.0); Alkaline Phosphatase 96 U/L (46-116); Anion Gap 7.2 mmol/L (3-11); BUN 14 mg/dL (7-18); Bilirubin, Total 0.7 mg/dL (0.2-1.0); CO2 28.8 mmol/L (21.0-32.0); CREATININE 1.33 mg/dL (0.55-1.02); Calcium 9.1 mg/dL (8.5-10.1); Chloride 100 mmol/L (98-107); Estimated GFR 38.69 (mL/min/1.73m2); Glucose 92 mg/dL (70-100); Potassium 3.9 mmol/L (3.5-5.1); Sodium 136 mmol/L (136-145); Total Protein 6.7 g/dL (6.4-8.2)
[2018-12-04 12:52] LABS: Troponin I < 0.02 ng/mL (0.00-0.06)
--- NOTE | 2018-12-04 13:13 | DI.US_ITS ---
SYMPTOMS/DIAGNOSIS: EVALUATE FOR ENLARGING AAA OR DISSECTION ABDOMINAL AORTIC ANEURYSM ULTRASOUND: The study was carried out to assess the status of the aorta and is compared with a prior CT of 12/02/2018. On today's examination, the aorta has a maximal transverse diameter of 4.89 cm and an AP diameter of 4.93 cm. Again noted is mural thrombus. There is nothing to suggest a dissection or leak. SUMMARY: No interval change in the status of an abdominal aortic aneurysm, which by ultrasound today has a maximal AP diameter of 4.9 cm and a maximal transverse diameter of 4.9 cm.
[2018-12-04 14:43] LABS: Bilirubin Negative (Negative); Blood Small (Negative); Clarity Clear; Glucose Negative (Negative); Ketones Negative (Negative); Leukocyte Esterase Negative (Negative); Nitrite Negative (Negative); Urobilinogen 0.2 EU/dL (Up TO 0.2); pH 6.5 (5-8)
[2018-12-04 15:00] LABS: Epithelial Cells Moderate HPF (Negative)
[2018-12-04 15:01] LABS: Bacteria Negative HPF (Negative); C & S Indicated? No/Sq. Contamination; Casts Negative LPF (Negative); Crystals Negative HPF (Negative); Mucus Negative (Negative)
[2018-12-04] MEDS: Fosfomycin Tromethamine 3 GM PACKET PO (16:07)
[2018-12-04 16:08] VITALS: BP 159/72; PULSE 62; RESP 16; TEMP 36.8; O2SAT 97
== END 2018-12-04 16:21 | disposition home or self-care (01) ==
PROVIDERS: Emergency Provider Student in an Organized Health Care Education/Training Program; PCP Family Medicine
DX: R10.9 Unspecified abdominal pain (principal); N39.0 Urinary tract infection, site not specified; I71.4 Abdominal aortic aneurysm, without rupture
CPT/HCPCS: 80053; 86850; 86900; 86901; 96360; 99284; 76775; 81003; 81015; 84484; 85025; J3490

== ENCOUNTER 2018-12-15 08:30 | Outpatient (CLI) | payer MEDICARE, MEDICAID, SELFPAY ==
[2018-12-15 09:03] LABS: HCT 42.7 % (36.0-46.0); HGB 14.3 g/dL (12.0-15.5); Mean Corp. HGB Concentration 33.5 g/dL (32.0-36.0); Mean Corpuscular Hemoglobin 31.2 pg (27.0-33.0); Mean Corpuscular Volume 93.2 fL (80-95); Platelet Count 199 x1000/uL (130-400); RBC 4.58 m/cumm (4.00-5.20); RBC Distribution Width 12.4 % (11.7-14.6); White Blood Cell Count 8.01 k/cumm (4.4-10.8)
[2018-12-15 09:48] LABS: Anion Gap 6.5 mmol/L (3-11); BUN 15 mg/dL (7-18); CO2 32.5 mmol/L (21.0-32.0); CREATININE 1.17 mg/dL (0.55-1.02); Calcium 9.6 mg/dL (8.5-10.1); Chloride 102 mmol/L (98-107); Estimated GFR 44.85 (mL/min/1.73m2); Glucose 57 mg/dL (70-100); Potassium 4.1 mmol/L (3.5-5.1); Sodium 141 mmol/L (136-145)
[2018-12-15 09:59] LABS: Bilirubin Negative (Negative); Blood Small (Negative); Clarity Clear; Glucose Negative (Negative); Ketones Negative (Negative); Leukocyte Esterase Negative (Negative); Nitrite Negative (Negative); Specific Gravity 1.015 (1.005-1.025); Urobilinogen 0.2 EU/dL (Up TO 0.2)
[2018-12-15 10:11] LABS: Bacteria Negative HPF (Negative); C & S Indicated? No; Casts Negative LPF (Negative); Crystals Negative HPF (Negative); Epithelial Cells Few HPF (Negative); Mucus Negative (Negative); WBC 0-2 HPF (0-5)
[2018-12-16 10:49] LABS: Prealbumin 29 mg/dL (20-40)
== END 2018-12-15 08:50 ==
PROVIDERS: PCP Family Medicine; Visit Provider Family Medicine
DX: R35.0 Frequency of micturition (principal); I71.4 Abdominal aortic aneurysm, without rupture
CPT/HCPCS: 36415; 80048; 85027; 81003; 81015; 84134

== ENCOUNTER 2019-01-05 14:25 | Emergency (ER) | payer MEDICARE, MEDICAID, SELFPAY ==
[2019-01-05 14:50] VITALS: BP 123/63; PULSE 74; RESP 18; TEMP 37.1; O2SAT 98
--- NOTE | 2019-01-05 15:04 | W.ED.GENAD ---
Discharge Plan Disposition Patient Disposition: HOME Condition: Stable Discharge Details Chief Complaint: Cellulitis Clinical Impression: Traumatic ecchymosis of right hand Primary Care Provider: Bonilla Gill ED Provider: Sam Hartmann Home Meds and New Rx's Prescriptions: No Action aspirin [Ecotrin Low Strength] 81 MG tablet,delayed release (DR/EC) 1 tab PO DAILY RF: 0 [facility] 1 EACH tablet 1 tab PO DAILY RF: 0 Ensure Pudding 113 GM pudding 1 canister PO DAILY Qty: 30 RF: 11 pantoprazole 40 MG tablet,delayed release (DR/EC) 40 mg PO DAILY Qty: 90 RF: 3 fluoxetine [Prozac] 40 MG capsule 40 mg PO DAILY Qty: 90 RF: 3 atorvastatin [Lipitor] 80 MG tablet 80 mg PO DAILY Qty: 90 RF: 3 tizanidine 2 MG tablet 2 mg PO BID PRNQty: 60 RF: 1 trazodone 50 MG tablet 25 - 50 mg PO HS PRNQty: 90 RF: 3 atenolol 25 MG tablet 25 mg PO DAILY Qty: 90 RF: 3 nitroglycerin [Nitrostat] 0.4 MG tablet, sublingual 0.4 mg Sublingual PRN Qty: 25 RF: 2 lisinopril 40 mg tablet 40 mg PO DAILY Qty: 90 RF: 4 amlodipine 2.5 mg tablet 2.5 mg PO BID Qty: 180 RF: 4 nicotine 21 mg/24 hr patch 24 hour 1 patch TD DAILY Qty: 14 RF: 1 Discharge Instructions Instructions: Contusion in Adults (ED) Medical Decision Making 78 yo female comes in with chief complaint of right hand bruising. She denies any falls or significant trauma though she does state she bumped it on a wall a few days ago. Denies any pain, and has full rom of the wrist and hand with intact sensation and 2+ radial and ulnar pulses. HAs bruising of the posterior hand without erythema or warmth, no evidence of infection. She has no pain on palpation and full rom so doubt fx/dislocation and do not feel xrays warranted. Suspect she has a mild contusion, advise elevation, RICE and f/u with pcp and return precautions given Differential Diagnosis contusion, sprain, strain HPI General Mode of arrival: ambulatory. Date/Time Provider Initiated Documentation: 01/05/19 14:46. Limitations to Documentation: no limitations. Information obtained by: patient. History of Present Illness 78 year old F presents to the emergency department with the chief complaint of right hand bruising, described as mild, Patient started experiencing this day(s) (1) and it has been constant. No relieving factors improve symptom(s), No exacerbating factors reported . Patient notes no other symptoms.. Patient did receive the following treatments prior to arrival, none Related Data Home Medications Medication Instructions Recorded Confirmed Central-Pilar [facility] 1 tab PO DAILY 12/11/12 12/04/18 aspirin [Ecotrin Low Strength] 1 tab PO DAILY tab-cap 12/11/12 12/04/18 Ensure Pudding 1 canister PO DAILY #30 canister 07/24/17 12/04/18 pantoprazole 40 mg PO DAILY #90 tab-cap 12/27/17 12/04/18 atenolol 25 mg PO DAILY #90 tab-cap 04/04/18 12/04/18 atorvastatin [Lipitor] 80 mg PO DAILY #90 tab-cap 04/04/18 12/04/18 fluoxetine [Prozac] 40 mg PO DAILY #90 tab-cap 04/04/18 12/04/18 nitroglycerin [Nitrostat] 0.4 mg SUBLINGUAL PRN #25 tab-cap 04/04/18 12/04/18 tizanidine 2 mg PO BID PRN #60 tab-cap 04/04/18 12/04/18 trazodone 25 - 50 mg PO HS PRN #90 tab-cap 04/04/18 12/04/18 lisinopril 40 mg tablet 40 mg PO DAILY #90 tab-cap 07/18/18 12/04/18 amlodipine 2.5 mg tablet 2.5 mg PO BID #180 tab-cap 07/25/18 12/04/18 nicotine 21 mg/24 hr daily 1 patch TD DAILY #14 each 01/03/19 transdermal patch Previous Rx's Medication Instructions Recorded Ensure Pudding 1 canister PO DAILY #30 canister 07/24/17 pantoprazole 40 mg PO DAILY #90 tab-cap 12/27/17 atenolol 25 mg PO DAILY #90 tab-cap 04/04/18 atorvastatin [Lipitor] 80 mg PO DAILY #90 tab-cap 04/04/18 fluoxetine [Prozac] 40 mg PO DAILY #90 tab-cap 04/04/18 nitroglycerin [Nitrostat] 0.4 mg SUBLINGUAL PRN #25 tab-cap 04/04/18 lisinopril 40 mg tablet 40 mg PO DAILY #90 tab-cap 07/18/18 amlodipine 2.5 mg tablet 2.5 mg PO BID #180 tab-cap 07/25/18 nicotine 21 mg/24 hr daily 1 patch TD DAILY #14 each 01/03/19 transdermal patch Allergies Allergy/AdvReac Type Severity Reaction Status Date / Time ciprofloxacin Allergy Severe HIVES; SOB Unverified 12/04/18 12:37 gemfibrozil Allergy Severe LOSES EYE Unverified 12/04/18 12:37 SIGHT talc Allergy Intermediate Other (See Unverified 12/04/18 12:37 Comment) diphenhydramine Allergy Mild ITCHING Unverified 12/04/18 12:37 adhesive Allergy Unknown Skin Rash Unverified 12/04/18 12:37 ibuprofen Allergy Unknown unknown Unverified 12/04/18 12:37 Penicillins Allergy Unknown Anaphylaxsi Unverified 12/04/18 12:37 s Sulfa (Sulfonamide Allergy Unknown unknown Unverified 12/04/18 12:37 Antibiotics) tetanus immune globulin Allergy Unknown unknown Unverified 12/04/18 12:37 isosorbide AdvReac Severe H/A'S Unverified 12/04/18 12:37 varenicline AdvReac Severe NIGHTMARES Unverified 12/04/18 12:37 nabumetone AdvReac Intermediate NAUSEA; Unverified 12/04/18 12:37 VOMITING simvastatin AdvReac Mild unknown Unverified 12/04/18 12:37 niacin AdvReac FLUSHING; Unverified 12/04/18 12:37 IRRITABILITY General Stated Complaint: Cellulitis JOSE L: 4 Review of Systems Review of Systems All systems reviewed & are unremarkable except as noted in HPI and below Constitutional Denies chills, Denies fever(s) and Denies weakness Cardiovascular Denies chest pain and Denies dyspnea Respiratory Denies cough and Denies dyspnea Gastrointestinal Denies abdominal pain, Denies nausea and Denies vomiting Musculoskeletal Denies joint swelling Neurologic Denies weakness [facility] Medical History ASCVD (arteriosclerotic cardiovascular disease) (Chronic 04/26/11) Abdominal aortic aneurysm (Chronic 12/31/13) Anxiety and depression (Chronic) COPD (Chronic) Eczema (Chronic) Essential hypertension (Chronic) Hypercholesterolemia (Chronic) IRREGULAR HEART BEAT (Chronic) STROKE (Chronic) Skin lesion (Chronic) Stented coronary artery (Chronic) Surgical History S/P AAA repair (Acute ~12/2018) Extraction of cataract (Inactive) Hernia Repair, Incisional (Inactive) Hysterectomy, Laproscopic (Inactive) Laparoscopic, Ovarian Cystectomy (Inactive) Social History Smoking/Tobacco Use Status: Current every day Tobacco Type: cigarettes Alcohol Intake: never Drug use: Never Substance use type: does not use Do you feel safe at home: Yes Do you feel safe in your relationship?: Yes Exam Const General: no acute distress Orientation: alert HENMT Head: normal to inspection Ears: external ears normal General nose exam: external nose normal Mouth: moist mucous membranes Eyes General: appearance normal, both eyes and all related structures Neck Neck: normal visual inspection Resp Effort & Inspection: normal respiratory effort and able to speak in complete sentences Cardio Rate: regular rate Skin General skin exam: no rashes or lesions noted Neuro General: alert and oriented x3 Extrem General: full ROM and normal capillary refill Psych Mental Status: mental status grossly normal Course Vital Signs Temperature 37.1 C 01/05/19 14:50 Pulse 74 01/05/19 14:50 Respiratory Rate 18 01/05/19 14:50 Blood Pressure 123/63 01/05/19 14:50 Pulse Oximetry 98 01/05/19 14:50 Temperature 37.1 C 01/05/19 14:50 Temperature Source Temporal Artery Scan 01/05/19 14:50 Pulse 74 01/05/19 14:50 Respiratory Rate 18 01/05/19 14:50 Respiratory Effort 01/05/19 14:53 Blood Pressure 123/63 01/05/19 14:50 Blood Pressure Position Sitting 01/05/19 14:50 Pulse Oximetry 98 01/05/19 14:50 Oxygen Delivery Method Room Air 01/05/19 14:50 Oxygen Flow Rate 0 01/05/19 14:50 Pain Level 3 01/05/19 14:50
--- NOTE | 2019-01-05 15:08 | ED.GENADUL_ITS ---
Discharge Plan Disposition Patient Disposition: HOME Condition: Stable Discharge Details Chief Complaint: Cellulitis Clinical Impression: Traumatic ecchymosis of right hand Primary Care Provider: Bonilla Gill ED Provider: Sam Hartmann Home Meds and New Rx's Prescriptions: No Action aspirin [Ecotrin Low Strength] 81 MG tablet,delayed release (DR/EC) 1 tab PO DAILY RF: 0 [facility] 1 EACH tablet 1 tab PO DAILY RF: 0 Ensure Pudding 113 GM pudding 1 canister PO DAILY Qty: 30 RF: 11 pantoprazole 40 MG tablet,delayed release (DR/EC) 40 mg PO DAILY Qty: 90 RF: 3 fluoxetine [Prozac] 40 MG capsule 40 mg PO DAILY Qty: 90 RF: 3 atorvastatin [Lipitor] 80 MG tablet 80 mg PO DAILY Qty: 90 RF: 3 tizanidine 2 MG tablet 2 mg PO BID PRNQty: 60 RF: 1 trazodone 50 MG tablet 25 - 50 mg PO HS PRNQty: 90 RF: 3 atenolol 25 MG tablet 25 mg PO DAILY Qty: 90 RF: 3 nitroglycerin [Nitrostat] 0.4 MG tablet, sublingual 0.4 mg Sublingual PRN Qty: 25 RF: 2 lisinopril 40 mg tablet 40 mg PO DAILY Qty: 90 RF: 4 amlodipine 2.5 mg tablet 2.5 mg PO BID Qty: 180 RF: 4 nicotine 21 mg/24 hr patch 24 hour 1 patch TD DAILY Qty: 14 RF: 1 Discharge Instructions Instructions: Contusion in Adults (ED) Medical Decision Making 78 yo female comes in with chief complaint of right hand bruising. She denies any falls or significant trauma though she does state she bumped it on a wall a few days ago. Denies any pain, and has full rom of the wrist and hand with intact sensation and 2+ radial and ulnar pulses. HAs bruising of the posterior hand without erythema or warmth, no evidence of infection. She has no pain on palpation and full rom so doubt fx/dislocation and do not feel xrays warranted. Suspect she has a mild contusion, advise elevation, RICE and f/u with pcp and return precautions given Differential Diagnosis contusion, sprain, strain HPI General Mode of arrival: ambulatory . Date/Time Provider Initiated Documentation: 01/05/19 14:46 . Limitations to Documentation: no limitations . Information obtained by: patient . History of Present Illness 78 year old F presents to the emergency department with the chief complaint of right hand bruising, described as mild, Patient started experiencing this day(s) (1) and it has been constant. No relieving factors improve symptom(s), No exacerbating factors reported . Patient notes no other symptoms.. Patient did receive the following treatments prior to arrival, none Related Data Home Medications Medication Instructions Recorded Confirmed [facility] 1 tab PO DAILY 12/11/12 12/04/18 aspirin [Ecotrin Low Strength] 1 tab PO DAILY tab-cap 12/11/12 12/04/18 Ensure Pudding 1 canister PO DAILY #30 canister 07/24/17 12/04/18 pantoprazole 40 mg PO DAILY #90 tab-cap 12/27/17 12/04/18 atenolol 25 mg PO DAILY #90 tab-cap 04/04/18 12/04/18 atorvastatin [Lipitor] 80 mg PO DAILY #90 tab-cap 04/04/18 12/04/18 fluoxetine [Prozac] 40 mg PO DAILY #90 tab-cap 04/04/18 12/04/18 nitroglycerin [Nitrostat] 0.4 mg SUBLINGUAL PRN #25 tab-cap 04/04/18 12/04/18 tizanidine 2 mg PO BID PRN #60 tab-cap 04/04/18 12/04/18 trazodone 25 - 50 mg PO HS PRN #90 tab-cap 04/04/18 12/04/18 lisinopril 40 mg tablet 40 mg PO DAILY #90 tab-cap 07/18/18 12/04/18 amlodipine 2.5 mg tablet 2.5 mg PO BID #180 tab-cap 07/25/18 12/04/18 nicotine 21 mg/24 hr daily 1 patch TD DAILY #14 each 01/03/19 transdermal patch Previous Rx's Medication Instructions Recorded Ensure Pudding 1 canister PO DAILY #30 canister 07/24/17 pantoprazole 40 mg PO DAILY #90 tab-cap 12/27/17 atenolol 25 mg PO DAILY #90 tab-cap 04/04/18 atorvastatin [Lipitor] 80 mg PO DAILY #90 tab-cap 04/04/18 fluoxetine [Prozac] 40 mg PO DAILY #90 tab-cap 04/04/18 nitroglycerin [Nitrostat] 0.4 mg SUBLINGUAL PRN #25 tab-cap 04/04/18 lisinopril 40 mg tablet 40 mg PO DAILY #90 tab-cap 07/18/18 amlodipine 2.5 mg tablet 2.5 mg PO BID #180 tab-cap 07/25/18 nicotine 21 mg/24 hr daily 1 patch TD DAILY #14 each 01/03/19 transdermal patch Allergies Allergy/AdvReac Type Severity Reaction Status Date / Time ciprofloxacin Allergy Severe HIVES; SOB Unverified 12/04/18 12:37 gemfibrozil Allergy Severe LOSES EYE Unverified 12/04/18 12:37 SIGHT talc Allergy Intermediate Other (See Unverified 12/04/18 12:37 Comment) diphenhydramine Allergy Mild ITCHING Unverified 12/04/18 12:37 adhesive Allergy Unknown Skin Rash Unverified 12/04/18 12:37 ibuprofen Allergy Unknown unknown Unverified 12/04/18 12:37 Penicillins Allergy Unknown Anaphylaxsi Unverified 12/04/18 12:37 s Sulfa (Sulfonamide Allergy Unknown unknown Unverified 12/04/18 12:37 Antibiotics) tetanus immune globulin Allergy Unknown unknown Unverified 12/04/18 12:37 isosorbide AdvReac Severe H/A'S Unverified 12/04/18 12:37 varenicline AdvReac Severe NIGHTMARES Unverified 12/04/18 12:37 nabumetone AdvReac Intermediate NAUSEA; Unverified 12/04/18 12:37 VOMITING simvastatin AdvReac Mild unknown Unverified 12/04/18 12:37 niacin AdvReac FLUSHING; Unverified 12/04/18 12:37 IRRITABILITY General Stated Complaint: Cellulitis JOSE L: 4 Review of Systems Review of Systems All systems reviewed & are unremarkable except as noted in HPI and below Constitutional Denies chills, Denies fever(s) and Denies weakness Cardiovascular Denies chest pain and Denies dyspnea Respiratory Denies cough and Denies dyspnea Gastrointestinal Denies abdominal pain, Denies nausea and Denies vomiting Musculoskeletal Denies joint swelling Neurologic Denies weakness COUNTS INCLUDE 234 BEDS AT THE [facility] Medical History ASCVD (arteriosclerotic cardiovascular disease) (Chronic 04/26/11) Abdominal aortic aneurysm (Chronic 12/31/13) Anxiety and depression (Chronic) COPD (Chronic) Eczema (Chronic) Essential hypertension (Chronic) Hypercholesterolemia (Chronic) IRREGULAR HEART BEAT (Chronic) STROKE (Chronic) Skin lesion (Chronic) Stented coronary artery (Chronic) Surgical History S/P AAA repair (Acute ~12/2018) Extraction of cataract (Inactive) Hernia Repair, Incisional (Inactive) Hysterectomy, Laproscopic (Inactive) Laparoscopic, Ovarian Cystectomy (Inactive) Social History Smoking/Tobacco Use Status: Current every day Tobacco Type: cigarettes Alcohol Intake: never Drug use: Never Substance use type: does not use Do you feel safe at home: Yes Do you feel safe in your relationship?: Yes Exam Const General: no acute distress Orientation: alert HENMT Head: normal to inspection Ears: external ears normal General nose exam: external nose normal Mouth: moist mucous membranes Eyes General: appearance normal, both eyes and all related structures Neck Neck: normal visual inspection Resp Effort & Inspection: normal respiratory effort and able to speak in complete sentences Cardio Rate: regular rate Skin General skin exam: no rashes or lesions noted Neuro General: alert and oriented x3 Extrem General: full ROM and normal capillary refill Psych Mental Status: mental status grossly normal Course Vital Signs Temperature 37.1 C 01/05/19 14:50 Pulse 74 01/05/19 14:50 Respiratory Rate 18 01/05/19 14:50 Blood Pressure 123/63 01/05/19 14:50 Pulse Oximetry 98 01/05/19 14:50 Temperature 37.1 C 01/05/19 14:50 Temperature Source Temporal Artery Scan 01/05/19 14:50 Pulse 74 01/05/19 14:50 Respiratory Rate 18 01/05/19 14:50 Respiratory Effort 01/05/19 14:53 Blood Pressure 123/63 01/05/19 14:50 Blood Pressure Position Sitting 01/05/19 14:50 Pulse Oximetry 98 01/05/19 14:50 Oxygen Delivery Method Room Air 01/05/19 14:50 Oxygen Flow Rate 0 01/05/19 14:50 Pain Level 3 01/05/19 14:50
== END 2019-01-05 17:10 | disposition home or self-care (01) ==
PROVIDERS: Emergency Provider Emergency Medicine; PCP Family Medicine
DX: S60.221A Contusion of right hand, initial encounter (principal); W22.09XA Striking against other stationary object, initial encounter
CPT/HCPCS: 99282

== ENCOUNTER 2020-05-04 13:38 | Emergency (ER) | payer OTHER, MEDICAID, SELFPAY ==
[2020-05-04] VITALS (9 sets, daily range): BP systolic 141–166; BP diastolic 86–87; PULSE 67–82; RESP 16–20; TEMP 36.7; O2SAT 94–97
--- NOTE | 2020-05-04 13:55 | NUR.NOTE ---
pt unsure of medications pt of [facility] states took medications this morning Nursing Note:
--- NOTE | 2020-05-04 14:00 | DI.RAD_ITS ---
EXAM: XR RIBS LT W PA LAT CHEST CLINICAL HISTORY: Fall, R/O fracture TECHNIQUE: COMPARISON: CR CHEST 2 VIEWS PA,LAT from 12/11/2017 CR XR HUMERUS LT from 05/04/2020 FINDINGS: PA and lateral views of the chest and additional views of left ribs were obtained. The heart is not enlarged. Lungs are clear. No pleural effusion or pneumothorax. No rib fracture seen. IMPRESSION: RADIATION DOSE DELIVERED: Total DLP
--- NOTE | 2020-05-04 14:12 | ED.GENADUL_ITS ---
Discharge Plan Disposition Patient Disposition: HOME Condition: Stable Discharge Details Chief Complaint: Chest/Rib Clinical Impression: Contusion of left chest wall, Contusion of left arm Primary Care Provider: Bonilla Gill ED Provider: Anne Marie Perla Home Meds and New Rx's Prescriptions: Continued nicotine [Nicoderm CQ] 21 mg/24 hr patch 24 hour 1 patch TD Q24H Qty: 28 RF: 1 (DME) Oxygen Tank See Dose Instructions .ROUTE .MEDSUPPLY Qty: 1 RF: 0 tizanidine 2 mg tablet 2 mg PO BID PRN (Reason: muscle spasticity) Qty: 60 RF: 0 amlodipine 2.5 mg tablet 2.5 mg PO BID Qty: 180 RF: 4 lisinopril 40 mg tablet 40 mg PO DAILY Qty: 90 RF: 4 nitroglycerin [Nitrostat] 0.4 mg tablet, sublingual 0.4 mg Sublingual PRN Qty: 25 RF: 2 trazodone 50 mg tablet 25 - 50 mg PO HS PRN (Reason: insomnia) Qty: 90 RF: 3 albuterol sulfate [Ventolin HFA] 90 mcg/actuation HFA aerosol inhaler 2 puff IH QID PRN (Reason: shortness of breath or wheezing) Qty: 6.7 RF: 2 Ensure Active High Protein Liquid 414 ml PO DAILY Qty: 69038 RF: 3 aspirin [Ecotrin Low Strength] 81 MG tablet,delayed release (DR/EC) 1 tab PO DAILY RF: 0 [facility] 1 EACH tablet 1 tab PO DAILY RF: 0 (DME) aveva patch Qty: 1 RF: 0 atenolol 25 mg tablet 25 mg PO DAILY Qty: 90 RF: 3 atorvastatin [Lipitor] 80 mg tablet 80 mg PO DAILY Qty: 90 RF: 3 fluoxetine [Prozac] 40 mg capsule 40 mg PO DAILY Qty: 90 RF: 3 pantoprazole 40 mg tablet,delayed release (DR/EC) 40 mg PO DAILY Qty: 90 RF: 3 Discharge Instructions Instructions: Fall Prevention for Older Adults (ED), Contusion in Adults (ED), Chest Wall Pain (ED) Additional Instructions: Follow up with primary care provider in 3-5 days. Return to ED sooner if any worsening or concerns. Increase oral fluids. Please take Tylenol with food every 4-6 hours as needed for pain and swelling. Return to the ER for any worsening shortness of breath, fever, productive cough or any concerns. Referrals: Bonilla Gill [Primary Care Provider] - Discharge Data Discharge Date/Time-TO BE ENTERED AT DEPARTURE: 05/04/20 16:45 Medical Decision Making 80-year-old female presents to the ER after a slip and fall onto a countertop last night. Patient states around 6 PM she turned to answer the phone hitting the corner of a counter to her left arm and left rib cage. She did not fall to the ground. Denies any loss of consciousness, neck pain. She does state that she has frequent falls and has had multiple back surgeries. She presents with contusion and bruising noted to her left upper arm. She does have tenderness to palpation to her left rib cage. No palpable crepitus or step-off lung sounds are clear bilaterally to auscultation. No midline C, T, L-spine tenderness with palpation. Patient has not taken any medications prior to arrival. When offered Tylenol or similar she declined at this time. She does have a past medical history of arteriosclerotic cardiovascular disease, with stents placed abdominal aortic aneurysm, anxiety depression, COPD, essential hypertension, high cholesterol, stroke. She is an every day smoker denies alcohol or illicit drugs. EXAM: XR HUMERUS LT CLINICAL HISTORY: Fall, R/O fracture TECHNIQUE: COMPARISON: No exams were available for comparison FINDINGS: Two views were obtained. No humeral fracture identified. EXAM: XR RIBS LT W PA LAT CHEST CLINICAL HISTORY: Fall, R/O fracture TECHNIQUE: COMPARISON: CR CHEST 2 VIEWS PA,LAT from 12/11/2017 CR XR HUMERUS LT from 05/04/2020 FINDINGS: PA and lateral views of the chest and additional views of left ribs were obtained. The heart is not enlarged. Lungs are clear. No pleural effusion or pneumothorax. No rib fracture seen. Patient reevaluation: She is sitting up in bed and appears much more comfortable. At this time she does agree to some Tylenol ordered at this time. Discussed x-ray results with patient, verbalized understanding. At this time is safe for her to be discharged home discussed strict return instructions and home care, verbalized understanding. Patient remained hemodynamically stable throughout stay. This text was generated using [employer] system, please disregard any oddities of phrase or misspellings. HPI General Mode of arrival: wheelchair . Date/Time Provider Initiated Documentation: 05/04/20 13:39 . Limitations to Documentation: no limitations . Information obtained by: patient . HPI Narrative: 80-year-old female presents to the ER after a slip and fall onto a countertop last night. Patient states around 6 PM she turned to answer the phone hitting the corner of a counter to her left arm and left rib cage. She did not fall to the ground. Denies any loss of consciousness, neck pain. She does state that she has frequent falls and has had multiple back surgeries. She presents with contusion and bruising noted to her left upper arm. She does have tenderness to palpation to her left rib cage. No palpable crepitus or step-off lung sounds are clear bilaterally to auscultation. No midline C, T, L-spine tenderness with palpation. Patient has not taken any medications prior to arrival. When offered Tylenol or similar she declined at this time. She does have a past medical history of arteriosclerotic cardiovascular disease, with stents placed abdominal aortic aneurysm, anxiety depression, COPD, essential hypertension, high cholesterol, stroke. She is an every day smoker denies alcohol or illicit drugs. Related Data Home Medications Medication Instructions Recorded Confirmed [facility] 1 tab PO DAILY 12/11/12 05/04/20 aspirin [Ecotrin Low Strength] 1 tab PO DAILY tab-cap 12/11/12 05/04/20 aveva #1 ea 02/04/19 08/25/19 Oxygen #1 each 02/24/19 08/25/19 nicotine 21 mg/24 hr daily 1 patch TD Q24H #28 each 05/26/19 05/04/20 transdermal patch atenolol 25 mg tablet 25 mg PO DAILY #90 tab-cap 05/27/19 05/04/20 atorvastatin 80 mg tablet 80 mg PO DAILY #90 tab-cap 05/27/19 05/04/20 fluoxetine 40 mg capsule 40 mg PO DAILY #90 tab-cap 05/27/19 05/04/20 albuterol sulfate 90 mcg/actuation 2 puff IH QID PRN #6.7 gm 08/25/19 05/04/20 aerosol inhaler amlodipine 2.5 mg tablet 2.5 mg PO BID #180 tab-cap 08/25/19 05/04/20 food supplemt, lactose-reduced 414 ml PO DAILY #75723 ml 08/25/19 05/04/20 lisinopril 40 mg tablet 40 mg PO DAILY #90 tab-cap 08/25/19 05/04/20 nitroglycerin 0.4 mg sublingual 0.4 mg SUBLINGUAL PRN #25 tab-cap 08/25/19 05/04/20 tablet tizanidine 2 mg tablet 2 mg PO BID PRN #60 tab-cap 08/25/19 05/04/20 trazodone 50 mg tablet 25 - 50 mg PO HS PRN #90 tab-cap 08/25/19 05/04/20 pantoprazole 40 mg tablet,delayed 40 mg PO DAILY #90 tab-cap 03/30/20 05/04/20 release Previous Rx's Medication Instructions Recorded nicotine 21 mg/24 hr daily 1 patch TD Q24H #28 each 05/26/19 transdermal patch atenolol 25 mg tablet 25 mg PO DAILY #90 tab-cap 05/27/19 atorvastatin 80 mg tablet 80 mg PO DAILY #90 tab-cap 05/27/19 fluoxetine 40 mg capsule 40 mg PO DAILY #90 tab-cap 05/27/19 albuterol sulfate 90 mcg/actuation 2 puff IH QID PRN #6.7 gm 08/25/19 aerosol inhaler amlodipine 2.5 mg tablet 2.5 mg PO BID #180 tab-cap 08/25/19 food supplemt, lactose-reduced 414 ml PO DAILY #59348 ml 08/25/19 lisinopril 40 mg tablet 40 mg PO DAILY #90 tab-cap 08/25/19 nitroglycerin 0.4 mg sublingual 0.4 mg SUBLINGUAL PRN #25 tab-cap 08/25/19 tablet tizanidine 2 mg tablet 2 mg PO BID PRN #60 tab-cap 08/25/19 trazodone 50 mg tablet 25 - 50 mg PO HS PRN #90 tab-cap 08/25/19 pantoprazole 40 mg tablet,delayed 40 mg PO DAILY #90 tab-cap 03/30/20 release Allergies Allergy/AdvReac Type Severity Reaction Status Date / Time ciprofloxacin Allergy Severe HIVES; SOB Unverified 05/04/20 13:50 gemfibrozil Allergy Severe LOSES EYE Unverified 05/04/20 13:50 SIGHT talc Allergy Intermediate Other (See Unverified 05/04/20 13:50 Comment) diphenhydramine Allergy Mild ITCHING Unverified 05/04/20 13:50 adhesive Allergy Unknown Skin Rash Unverified 05/04/20 13:50 ibuprofen Allergy Unknown unknown Unverified 05/04/20 13:50 Penicillins Allergy Unknown Anaphylaxsi Unverified 05/04/20 13:50 s Sulfa (Sulfonamide Allergy Unknown unknown Unverified 05/04/20 13:50 Antibiotics) tetanus immune globulin Allergy Unknown unknown Unverified 05/04/20 13:50 isosorbide AdvReac Severe H/A'S Unverified 05/04/20 13:50 varenicline AdvReac Severe NIGHTMARES Unverified 05/04/20 13:50 nabumetone AdvReac Intermediate NAUSEA; Unverified 05/04/20 13:50 VOMITING simvastatin AdvReac Mild unknown Unverified 05/04/20 13:50 niacin AdvReac FLUSHING; Unverified 05/04/20 13:50 IRRITABILITY General Stated Complaint: Chest/Rib JOSE L: 3 Review of Systems Narrative: Constitutional: Negative for weight loss, alert and oriented, well groomed, thin body habitus, appears uncomfortable. Reports frequent falls. HEENT: Denieshead trauma, headaches, blurry vision, nasal discharge, sore throat, trouble swallowing. Chest: Denies palpitations, irregular rhythm, hypertension. Positive left chest wall pain. Respiratory: Denies Shortness of breath, , hemoptysis. positive congested cough, is a smoker. Extremities: Bruising noted to left upper arm. GI: Denies abdominal pain, nausea, vomiting, diarrhea, constipation. : Denies dysuria, hematuria, flank pain, rectal bleeding. Neuro: Denies dizziness, blurry vision, weakness, syncope, headache or facial numbness. Hematologic: Denies easy bruising, intolerance to heat or cold, hair loss. [facility] Medical History Abdominal aortic aneurysm (Chronic 12/31/13) 2013 3.7 cm, 2014 3.8 cm Anxiety and depression (Chronic) ASCVD (arteriosclerotic cardiovascular disease) (Chronic 04/26/11) 04/19 [facility] CATH AND RCA STENT 04/20 [facility] NEG FOR ISCHEMIA 02/20 [facility] ([facility]) NEG FOR ISCHEMIA COPD (Chronic) Eczema (Chronic) Essential hypertension (Chronic) Hypercholesterolemia (Chronic) IRREGULAR HEART BEAT (Chronic) Skin lesion (Chronic) Stented coronary artery (Chronic) STROKE (Chronic) Weight loss (Acute) Surgical History Extraction of cataract (Inactive) 04/19/17 DR. CHU; B/L Hernia Repair, Incisional (Inactive) Hysterectomy, Laproscopic (Inactive) Laparoscopic, Ovarian Cystectomy (Inactive) S/P AAA repair (Acute ~12/2018) 12/11/18 [facility] [place] Social History Smoking/Tobacco Use Status: Current every day Tobacco Type: cigarettes Alcohol Intake: never Drug use: Never Substance use type: does not use Do you feel safe at home: Yes Do you feel safe in your relationship?: Yes Exam Narrative Exam Narrative: Constitutional: Alert and oriented x3. Appears stated age. Thin body habitus. Head: Normocephalic, no trauma. Eyes: Pupils PERRLA, Red reflex noted, EOM's intact. Eyelids symmetrical without lesions, discharge, or swelling. ENT: Bilateral TM's WNL, External ear normal to inspection, no mastoid TTP, swelling, or erythema, Nasal turbinates WNL, no nasal discharge. Normal dentition, Posterior pharynx WNL, no exudate. Chest: RRR, Normal S1, S2, distal pulses intact. Left rib cage tenderness. Resp: Lungs clear to auscultation bilaterally, no wheezes, rales, or rhonchi. Musculoskeletal: Left upper extremity tenderness two contusions and left rib cage tenderness. Skin: ecchymosis noted to left upper arm. Capillary refill less than 2 sec. Neurologic: Cranial nerves II-XII intact. Alert and oriented x 3. DTR's intact. Hematologic/Lymphatic: No ecchymosis, no lymphadenopathy. Course Vital Signs Vital signs: Vital Signs Temperature 36.7 C 05/04/20 13:40 Pulse 82 05/04/20 13:40 Respiratory Rate 20 05/04/20 13:40 Blood Pressure 166/86 H 05/04/20 13:40 Pulse Oximetry 97 05/04/20 13:40 Temperature 36.7 C 05/04/20 13:40 Temperature Source Skin 05/04/20 13:40 Pulse 82 05/04/20 13:40 Respiratory Rate 20 05/04/20 13:40 Respiratory Effort 05/04/20 14:01 Blood Pressure 166/86 H 05/04/20 13:40 Pulse Oximetry 97 05/04/20 13:40 Oxygen Delivery Method Room Air 05/04/20 13:40 Oxygen Flow Rate 0 05/04/20 13:40 Pain Level 8 05/04/20 14:01
--- NOTE | 2020-05-04 14:43 | NUR.NOTE ---
pt refused offer for pain medNursing Note:
--- NOTE | 2020-05-04 15:31 | DI.RAD_ITS ---
EXAM: XR HUMERUS LT CLINICAL HISTORY: Fall, R/O fracture TECHNIQUE: COMPARISON: No exams were available for comparison FINDINGS: Two views were obtained. No humeral fracture identified. IMPRESSION: RADIATION DOSE DELIVERED: Total DLP
--- NOTE | 2020-05-04 15:43 | NUR.NOTE ---
pt is supine per her request .Nursing Note:
--- NOTE | 2020-05-04 15:50 | NUR.NOTE ---
pt out of stretcher by herself, voiding on the commodeNursing Note:
[2020-05-04] MEDS: Acetaminophen 500 MG TAB PO (16:11)
== END 2020-05-04 16:45 | disposition home or self-care (01) ==
LOC: ER 16:27
PROVIDERS: Emergency Provider Registered Nurse Emergency; PCP Family Medicine
DX: S20.212A Contusion of left front wall of thorax, initial encounter (principal); S40.022A Contusion of left upper arm, initial encounter; W22.09XA Striking against other stationary object, initial encounter; I10 Essential (primary) hypertension; J44.9 Chronic obstructive pulmonary disease, unspecified; F17.210 Nicotine dependence, cigarettes, uncomplicated
CPT/HCPCS: 99284; 71046; 71100; 73060

== ENCOUNTER 2020-11-03 10:04 | Inpatient (IN) | payer OTHER, MEDICAID, SELFPAY ==
[2020-11-03] VITALS (36 sets, daily range): BP systolic 114–158; BP diastolic 63–76; PULSE 72–92; RESP 1–32; TEMP 35.1–37.2; O2SAT 86–98
--- NOTE | 2020-11-03 10:00 | RT.EKG_ITS ---
APPROVED REPORT Exam: Resting ECG Patient Location: E HR:80 bpm ECG Measurements Heart Rate 80 AXIS MA 141 P 53 QRSd 91 QRS 78 QT 400 T 58 QTc 462 Conclusion Sinus rhythm...normal P axis, V-rate 60- 99 Left ventricular hypertrophy...multiple voltage criteria
--- NOTE | 2020-11-03 10:38 | W.ED.GENAD ---
Discharge Plan Disposition Patient Disposition: [facility] INPATIENT Condition: Stable Discharge Details Clinical Impression: Infiltrate of upper lobe of right lung present on imaging study, Fall, Chest pain Admit Date/Time: 11/03/20 13:46 Admit Provider: Kevin Bird Attending Provider: Kevin Bird Primary Care Provider: Bonilla Gill ED Provider: Sanjay Mcmillan Discharge Data Discharge Date/Time-TO BE ENTERED AT DEPARTURE: 11/03/20 14:44 Medical Decision Making 1056 ??80-year-old female with multiple medical problems presents after traumatic fall with chief complaint of chest pain and associated shortness of breath after fall last night. Patient also with exacerbation of her low back pain as well as pain in her right hip. Patient did strike her head during the fall. Consider intracranial hemorrhage. Plan to obtain CT of the head. Consider C-spine fracture as well will obtain CT cervical spine. Plan to obtain CT of the chest to assess for fracture versus pneumohemothorax versus other traumatic injury. Will obtain CT of the abdomen pelvis as well given concern for pelvic fracture. Consider hip fracture, will obtain hip series. Screening ECG was reviewed and interpreted by me: Please see report, sinus rhythm 80 bpm, LVH, no STEMI. --Labs reviewed and leukocytosis noted. Negative Covid. 1340 --CT of the chest, abdomen pelvis was interpreted by radiology: IMPRESSION: 1. Mild peripheral right upper lobe infiltrate. This require follow-up to resolution. No adenopathy. No pleural effusions. No significant trauma sequelae in the chest 2. Right ureteropelvic junction obstruction again noted, as evident on prior CT scan November 2018. 3. Aortic EVAR in place. No hematoma around the EVAR. No evidence of mesenteric nor bowel wall hematoma. 4. No acute findings in the abdomen and pelvis. Density in the anterior midline abdominal wall is unchanged from the 2019 study and most probably related to abdominal hernia repair. CT of the head and cervical spine reviewed by radiology:: No acute intracranial findings on this noninfused CT scan of the brain.There is abundant bilateral periventricular hypodensity consistent with chronic small vessel disease. No evidence of cervical spine fracture, malalignment, nor acute compromise of the cervical spinal canal. There are advanced degenerative changes in the cervical spinal column. Plan to initiate treatment for pneumonia with doxycycline 100 mg. 1345 -- I spoke with Dr. bird, discussed ED presentation and course, he will admit the patient. HPI General Mode of arrival: ambulatory. Date/Time Provider Initiated Documentation: 11/03/20 10:13. Limitations to Documentation: no limitations. Information obtained by: patient. HPI Narrative: 80f with multiple medical problems including CAD, AAA, COPD, chronic back pain, here with chief complaint of chest pain. Patient notes that last night he had a fall in the middle the night ambulating to the bathroom. She notes this is the worst fall she is on her head. She did hit her head. She notes she thinks she impacted her chest. She has had pain in her right and central chest since the fall. Chest pain is moderate to severe and worse with deep inspiration and movements. She has associated shortness of breath secondary to pain. Related Data Home Medications Medication Instructions Recorded Confirmed Central-Pilar for Seniors 1 tab PO DAILY 12/11/12 11/03/20 aspirin [Ecotrin Low Strength] 1 tab PO DAILY tab-cap 12/11/12 11/03/20 aveva #1 ea 02/04/19 10/17/20 Oxygen #1 each 02/24/19 10/17/20 nicotine 21 mg/24 hr daily 1 patch TD Q24H #28 each 05/26/19 11/03/20 transdermal patch albuterol sulfate 90 mcg/actuation 2 puff IH QID PRN #6.7 gm 08/25/19 11/03/20 aerosol inhaler nitroglycerin 0.4 mg sublingual 0.4 mg SUBLINGUAL PRN #25 tab-cap 08/25/19 11/03/20 tablet tizanidine 2 mg tablet 2 mg PO BID PRN #60 tab-cap 08/25/19 11/03/20 pantoprazole 40 mg tablet,delayed 40 mg PO DAILY #90 tab-cap 03/30/20 11/03/20 release atenolol 25 mg tablet 25 mg PO DAILY #90 tab-cap 05/06/20 11/03/20 food supplemt, lactose-reduced 237 ml PO DAILY #90 ea 06/10/20 11/03/20 fluoxetine 40 mg capsule 40 mg PO DAILY #90 tab-cap 07/06/20 11/03/20 mupirocin 2 % topical ointment 1 applic TOPICAL BID #15 g 10/17/20 11/03/20 amlodipine 2.5 mg tablet 2.5 mg PO BID #180 tab-cap 10/19/20 11/03/20 triamcinolone acetonide 0.1 % 1 applic TOPICAL BID PRN 7 Days 11/01/20 11/03/20 topical ointment #80 g atorvastatin [Lipitor] 40 mg PO DAILY #90 tab-cap 11/09/20 11/03/20 fentanyl 12 mcg TRANSDERMAL Q72H #2 ea 11/09/20 lidocaine [Lidoderm] 3 patch TOPICAL Q24H #10 ea 11/09/20 magnesium oxide 400 mg PO BID #60 tab 11/09/20 mirtazapine 15 mg PO HS #30 tab 11/09/20 multivitamin [Multiple Vitamins] 1 tab PO BID #60 tab 11/09/20 tapentadol [Nucynta] 50 mg PO Q6H PRN PRN #10 tab 11/09/20 thiamine mononitrate (vit B1) 100 mg PO DAILY #30 tab 11/09/20 [Vitamin B-1 (mononitrate)] trazodone 25 mg PO HS PRN #90 tab-cap 11/09/20 11/03/20 Previous Rx's Medication Instructions Recorded nicotine 21 mg/24 hr daily 1 patch TD Q24H #28 each 05/26/19 transdermal patch albuterol sulfate 90 mcg/actuation 2 puff IH QID PRN #6.7 gm 08/25/19 aerosol inhaler nitroglycerin 0.4 mg sublingual 0.4 mg SUBLINGUAL PRN #25 tab-cap 08/25/19 tablet tizanidine 2 mg tablet 2 mg PO BID PRN #60 tab-cap 08/25/19 pantoprazole 40 mg tablet,delayed 40 mg PO DAILY #90 tab-cap 03/30/20 release atenolol 25 mg tablet 25 mg PO DAILY #90 tab-cap 05/06/20 food supplemt, lactose-reduced 237 ml PO DAILY #90 ea 06/10/20 fluoxetine 40 mg capsule 40 mg PO DAILY #90 tab-cap 07/06/20 mupirocin 2 % topical ointment 1 applic TOPICAL BID #15 g 10/17/20 amlodipine 2.5 mg tablet 2.5 mg PO BID #180 tab-cap 10/19/20 triamcinolone acetonide 0.1 % 1 applic TOPICAL BID PRN 7 Days 11/01/20 topical ointment #80 g atorvastatin [Lipitor] 40 mg PO DAILY #90 tab-cap 11/09/20 fentanyl 12 mcg TRANSDERMAL Q72H #2 ea 11/09/20 lidocaine [Lidoderm] 3 patch TOPICAL Q24H #10 ea 11/09/20 magnesium oxide 400 mg PO BID #60 tab 11/09/20 mirtazapine 15 mg PO HS #30 tab 11/09/20 multivitamin [Multiple Vitamins] 1 tab PO BID #60 tab 11/09/20 tapentadol [Nucynta] 50 mg PO Q6H PRN PRN #10 tab 11/09/20 thiamine mononitrate (vit B1) 100 mg PO DAILY #30 tab 11/09/20 [Vitamin B-1 (mononitrate)] trazodone 25 mg PO HS PRN #90 tab-cap 11/09/20 Allergies Allergy/AdvReac Type Severity Reaction Status Date / Time ciprofloxacin Allergy Severe HIVES; SOB Verified 11/03/20 14:14 gemfibrozil Allergy Severe LOSES EYE Verified 11/03/20 14:14 SIGHT talc Allergy Intermediate Other (See Verified 11/03/20 14:14 Comment) diphenhydramine Allergy Mild ITCHING Verified 11/03/20 14:14 adhesive Allergy Unknown Skin Rash Verified 11/03/20 14:14 ibuprofen Allergy Unknown unknown Verified 11/03/20 14:14 Penicillins Allergy Unknown Anaphylaxsi Verified 11/03/20 14:14 s Sulfa (Sulfonamide Allergy Unknown unknown Verified 11/03/20 14:14 Antibiotics) tetanus immune globulin Allergy Unknown unknown Verified 11/03/20 14:14 isosorbide AdvReac Severe H/A'S Verified 11/03/20 14:14 varenicline AdvReac Severe NIGHTMARES Verified 11/03/20 14:14 nabumetone AdvReac Intermediate NAUSEA; Verified 11/03/20 14:14 VOMITING simvastatin AdvReac Mild unknown Verified 11/03/20 14:14 niacin AdvReac FLUSHING; Unverified 11/03/20 14:14 IRRITABILITY General Stated Complaint: SOB JOSE L: 2 Review of Systems All systems reviewed & are unremarkable except as noted in HPI and below Constitutional Constitutional: Denies fever(s) Cardiovascular Cardiovascular: Reports as per HPI Respiratory Respiratory: Reports as per HPI, Denies cough and Denies wheezing Gastrointestinal Gastrointestinal: Denies abdominal pain Musculoskeletal Musculoskeletal: Reports arthralgias Comments: Chronic low back pain, worse after fall; right hip pain worse with ambulation Allergic/Immunologic Allergic/Immunologic: Denies wheezing [facility] Medical History (Updated 11/08/20 @ 18:32 by Annabelle Bob MD) Abdominal aortic aneurysm (12/31/13) 2013 3.7 cm, 2014 3.8 cm 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) Anxiety and depression [place]VD (arteriosclerotic cardiovascular disease) (04/26/11) [place] [facility] [place] [facility] NEG FOR ISCHEMIA 02/20 MPI ([facility]) NEG FOR ISCHEMIA COPD Coronary artery disease Depressive disorder Diverticulosis (04/08/14) haleigh ([place]) Eczema Essential hypertension Gastroesophageal reflux disease + Hpylori per EGD in 2006 Heart murmur echo 2004-mild MR; EF 65% echo 2011 mod MR, EF 65% Hypercholesterolemia IRREGULAR HEART BEAT Osteoporosis Pancreatitis due to biliary obstruction Skin lesion Stented coronary artery STROKE Weight loss Surgical History (Updated 11/03/20 @ 16:47 by Anita Everett NP) Extraction of cataract 04/19/17 DR. CHU; B/L Hernia Repair, Incisional History of incisional hernia repair Hysterectomy, Laproscopic Laparoscopic, Ovarian Cystectomy S/P AAA repair (~12/2018) [place] [facility] [place] Status post [place] hysterectomy Status post ovarian cystectomy Social History Smoking/Tobacco Use Status: Current every day Tobacco Type: cigarettes Smoking risk assessment performed?: Yes Alcohol Intake: never Drug use: Never Substance use type: does not use Do you feel safe at home: Yes Do you feel safe in your relationship?: Yes Exam Const General: cooperative and no acute distress [facility] Head: normocephalic and atraumatic Mouth: moist mucous membranes Eyes Conjunctivae: normal conjunctivae Sclera: normal sclerae EOM: EOM intact bilaterally Neck Neck: trachea midline and supple Resp Effort & Inspection: not labored Auscultation: clear to auscultation bilaterally, diminished lung sounds bilaterally, no rales, no rhonchi and no wheezes Other: Pain with deep inspiration Cardio Jugular venous pressure: no JVD Rate: regular rate and not tachycardic Rhythm: regular rhythm GI Palpation: soft, not firm, no guarding, no masses, not rigid and nontender Skin General skin exam: no rashes or lesions noted Neuro General: patient alert, patient awake, patient oriented x3 and tone normal Extrem General: no edema Right lower extremity: hip/thigh (Tender to palpation on lateral compression) Other: able to extend at right hip with pain with pain posterior pelvis Psych Appearance: grossly normal Mental Status: mental status grossly normal Course Vital Signs Vital signs: Vital Signs Temperature 36.7 C 11/03/20 10:11 Pulse 82 11/03/20 10:11 Respiratory Rate 21 11/03/20 10:11 Blood Pressure 154/67 H 11/03/20 10:11 Pulse Oximetry 95 11/03/20 10:11 Temperature 36.7 C 11/03/20 10:11 Temperature Source Skin 11/03/20 10:11 Pulse 82 11/03/20 10:11 Respiratory Rate 11/03/20 10:11 Respiratory Effort Incrsd Work of Breathing 11/03/20 10:36 Blood Pressure 154/67 H 11/03/20 10:11 Blood Pressure Position Supine 11/03/20 10:11 Pulse Oximetry 95 11/03/20 10:11 Oxygen Delivery Method Room Air 11/03/20 10:11 Oxygen Flow Rate 0 11/03/20 10:11 Comment 11/03/20 10:11
--- NOTE | 2020-11-03 10:59 | NUR.NOTE ---
pt does not know medications states it's all in the machine Nursing Note:
[2020-11-03] MEDS: fentaNYL 100 MCG/2 ML VIAL 50 MCG IVP (11:06)
[2020-11-03 11:07] LABS: Abs Immature Grans 0.12 10^3/uL (0.0-0.06); Absolute Basophil Count 0.05 10^3/uL (0.0-0.2); Absolute Monocyte Count 0.91 10^3/uL (0.1-0.8); Absolute Neutrophil Count 16.19 10^3/uL (1.2-6.7); Basophils % 0.3; Eosinophils % 0.4; HCT 45.1 % (36.0-46.0); HGB 15.3 g/dL (11.2-15.7); Immature Grans % 0.7; Lymphocytes % 4.9; MCH 31.5 pg (27.0-33.0); MCHC 33.9 % (32.0-36.0); MPV 9.5 fL (8.0-11.0); Neutrophils % 88.7; Nucleated RBC 0 %; Platelet Count 227 10^3/uL (130-400); RBC 4.85 10^6/uL (3.93-5.22); RDW 12.1 % (11.7-14.6); RDW-SD 41.7 fL; WBC 18.25 10^3/uL (4.4-10.8)
[2020-11-03 11:09] LABS: Absolute Eosinophil Count 0.07 10^3/uL (0.0-0.7); Absolute Lymphocyte Count 0.89 10^3/uL (1.2-3.4)
[2020-11-03 11:21] LABS: Prothrombin Time 9.9 sec (9.3-11.0)
[2020-11-03 11:23] LABS: ALT 38 U/L (14-59); AST 34 U/L (15-37); Albumin 4.1 g/dL (3.4-5.0); Alkaline Phosphatase 118 U/L (46-116); Anion Gap 9.6 mmol/L (3-11); BUN 29 mg/dL (7-18); Bilirubin, Total 0.9 mg/dL (0.2-1.0); CO2 27.4 mmol/L (21.0-32.0); CREATININE 1.3 mg/dL (0.55-1.02); Calcium 9.5 mg/dL (8.5-10.1); Chloride 98 mmol/L (98-107); Estimated GFR 39.51 (mL/min/1.73m2); Glucose 152 mg/dL (74-106); Potassium 3.9 mmol/L (3.5-5.1); Sodium 135 mmol/L (136-145); Total Protein 7.9 g/dL (6.4-8.2); Troponin I < 0.05 ng/mL (<0.06)
--- NOTE | 2020-11-03 12:15 | DI.RAD_ITS ---
EXAM: XR FEMUR RT CLINICAL HISTORY: fall, pain. TECHNIQUE: 2D digital imaging was performed. COMPARISON: No exams were available for comparison FINDINGS: There is no evidence of right hip fracture and no evidence of right femur fracture. Incidentally not ed are endovascular stents in the iliac arteries. Calcification is noted in the common femoral arter y and femoral artery, indicating atherosclerotic involvement. There are no significant degenerative changes in the hip joint noted. No osseous lesions. No radiopaque foreign body IMPRESSION: DATA REPOSITORY: RADIATION DOSE DELIVERED:
--- NOTE | 2020-11-03 12:15 | DI.RAD_ITS ---
EXAM: XR PELVIS AP CLINICAL HISTORY: fall pain. TECHNIQUE: 2D digital imaging was performed. COMPARISON: CR XR hip LT complete AP pelvis from 05/27/2018 FINDINGS: There is aortic EVAR and endovascular stents are tele scoped out from the EVAR down through the lengt h of the common and external iliac arteries. The space between the left common iliac stent and left external iliac stent is most probably so as not to occlude the left internal iliac artery. There is no evidence of pelvic or hip fracture. IMPRESSION: No fractures evident. DATA REPOSITORY: RADIATION DOSE DELIVERED:
--- NOTE | 2020-11-03 12:36 | DI.CT_ITS ---
EXAM: CT HEAD CERVICAL SPINE WO CLINICAL HISTORY: fall last night, trauma. TECHNIQUE: Imaging Protocol: Axial computed tomography images with coronal and sagittal reformatted images were created and reviewed COMPARISON: No exams were available for comparison FINDINGS: BRAIN: There are no skull fractures nor fluid in the visualized paranasal sinuses. There is no evidence of intracranial hemorrhage, mass effect, or shift of midline structures. There are no extra-axial fluid collections. The ventricles are not enlarged or shifted and there is no blo od within the ventricular system nor within the basal cisterns. There is abundant bilateral periventricular hypodensity consistent with chronic small vessel disease. No obvious acute infarct. CERVICAL SPINE: There is no evidence of acute fracture.. No significant prevertebral soft tissue swelling. No facet malalignment evident. There are multilevel degenerative changes and there is also mild degenerative anterolisthesis of C3 u anny C4, this related to advanced facet arthropathy. There are no jumped facets. IMPRESSION: No acute intracranial findings on this noninfused CT scan of the brain.There is abundant bilateral pe riventricular hypodensity consistent with chronic small vessel disease. No evidence of cervical spine fracture, malalignment, nor acute compromise of the cervical spinal can al. There are advanced degenerative changes in the cervical spinal column. RADIATION DOSE DELIVERED: 1,207.05mGy.cm Total DLP DATA REPOSITORY: All CT scans at this facility are submitted to the National Radiology Data Registry (NRDR) Dose Index Registry (DIR) with the [employer] (ACR). RADIATION OPTIMIZATION: All CT scans at this facility use at least one of these dose optimization te chniques: automated exposure control; mA and/or kV adjustment per patient size (includes targeted exa ms where dose is matched to clinical indication); or iterative reconstruction.
[2020-11-03] MEDS: Normal Saline 500 ML 1000 ML IV (12:45)
--- NOTE | 2020-11-03 12:46 | DI.CT_ITS ---
EXAM: CT CHEST/ABD/PEL W CLINICAL HISTORY: fall, trauma, pain in chest and right hip/pelvis. TECHNIQUE: Imaging Protocol: Axial computed tomography images with coronal and sagittal reformatted images were created and reviewed CONTRAST MATERIAL: Intravenous: Omnipaque 350 Contrast volume:100 ml Oral: None COMPARISON: CT CT ABDOMEN PELVIS W from 12/02/2018 FINDINGS: CHEST: LUNGS: There is mild infiltrate in the peripheral aspect of the right upper lobe which require follow -up to resolution. There are no other significant focal right lung findings nor pleural effusion. S mall area of subpleural infiltrate in the lateral aspect left lower lobe is noted with an adjacent th in walled benign-appearing bulla measuring 2.4 1.8 cm. Mild atelectasis in the left lung base. Ther e are no pleural effusions. No pneumothorax.. MEDIASTINUM: There is no hilar nor mediastinal adenopathy. Visualized thyroid unremarkable.No evidenc e of mediastinal hematoma. No evidence of significant thoracic aortic trauma. No dissection. CARDIAC: Heart size is normal. There is no pericardial effusion.Laminar of the ascending thoracic ao rta is within normal limits. There is slight expansion of the mid arch exhibiting diameter of 3.1 cm . Proximal descending thoracic aorta is 2.5 cm. Distal thoracic aorta 2.7 cm OSSEOUS: No fractures identified.. ABDOMEN: There is no ascites. Density in the anterior midline abdominal wall is unchanged from November 2018 and is probably related to hernia repair. No evidence of bowel wall nor mesenteric hematoma. LIVER: There are no focal hepatic lesions nor dilatation of intrahepatic ducts. No patent laceration evident GALLBLADDER/BILIARY: No obvious gallbladder pathology. CBD is not dilated. PANCREAS: No evidence of pancreatic mass nor dilatation of the pancreatic duct. SPLEEN: Spleen is not enlarged. There are no intrasplenic lesions. No splenic laceration. Splenic a nd portal veins are patent ADRENALS: There are no significant adrenal masses. KIDNEYS: No significant renal trauma. No subcapsular hematoma or laceration. Bilateral renal cysts are again noted. Left kidney is again noted to be atrophic. There is an element of right UPJ obstru ction with significant enlargement of the right renal pelvis again evident.. No solid renal masses. ABDOMINAL AORTA: There has been placement of a abdominal aortic EVAR. [place] sac diameter is 4.7 cm. No obvious acute leak/extravasation. LYMPH NODES: There is no retroperitoneal nor paraaortic adenopathy. ABDOMINAL WALL/GI: No evidence of significant anterior abdominal wall hernia. No evidence of mesente janis nor bowel wall hematoma. PELVIS: LYMPH NODES: There is no intrapelvic nor inguinal adenopathy. GI: No evidence of appendicitis.No evidence of sigmoid diverticulitis. URINARY BLADDER: Not distended. No obvious abnormality. REPRODUCTIVE: Uterus is atrophic or surgically absent. OSSEOUS: No significant osseous lesions. No fractures evident IMPRESSION: 1. Mild peripheral right upper lobe infiltrate. This require follow-up to resolution. No adenopathy . No pleural effusions. No significant trauma sequelae in the chest 2. Right ureteropelvic junction obstruction again noted, as evident on prior CT scan November 2018. 3. Aortic EVAR in place. No hematoma around the EVAR. No evidence of mesenteric nor bowel wall rodney karie. 4. No acute findings in the abdomen and pelvis. Density in the anterior midline abdominal wall is un changed from the 2019 study and most probably related to abdominal hernia repair. RADIATION DOSE DELIVERED: 635.03mGy.cm Total DLP DATA REPOSITORY: All CT scans at this facility are submitted to the National Radiology Data Registry (NRDR) Dose Index Registry (DIR) with the [employer] (ACR). RADIATION OPTIMIZATION: All CT scans at this facility use at least one of these dose optimization te chniques: automated exposure control; mA and/or kV adjustment per patient size (includes targeted exa ms where dose is matched to clinical indication); or iterative reconstruction.
[2020-11-03] MEDS: Normal Saline - Diluent 50 ML VIAL IV (12:54)
[2020-11-03] MEDS: Omnipaque 350 MG/ML 100 ML BTL 60 ML IV (12:56)
[2020-11-03 13:18] LABS: COVID-19 PCR Negative (Negative); Influenza A PCR Negative (Negative); Influenza B PCR Negative (Negative); RSV PCR Negative (Negative)
[2020-11-03 14:27] LABS: Troponin I < 0.05 ng/mL (<0.06)
--- NOTE | 2020-11-03 16:13 | HPE_ITS ---
Date of service: 11/03/20 Time of Service: 16:15 Assessment and Plan Assessment and plan (1) CAP (community acquired pneumonia): Start date: 11/03/20 Start time: 16:47 Status: Acute Assessment and plan: Found on CT in ED. Mild peripheral right upper lobe infiltrate Patient has WBC 18, will obtain procal in am Harsh cough with nonproductive sputum Doxy only due to multiple allergies. Blood cultures pending. mucinex IS Repeat labs in am Qualifiers: Laterality: unspecified laterality Qualified Code(s): J18.9 - Pneumonia, unspecified organism (2) Fall: Start date: 11/03/20 Start time: 16:49 Status: Acute Assessment and plan: Multiple falls, She states she falls all the time She would likely be safer being discharged to a [facility] PT/OT ordered will have them evaluate her Qualifiers: Encounter type: initial encounter Qualified Code(s): W19.XXXA - Unspecified fall, initial encounter (3) Eczema: Start date: 11/03/20 Start time: 16:50 Status: Chronic Assessment and plan: states she itches all the time and she gets these spells all over her body, eucerin and hydrocortisone ordered. They appear un sherrie control at this time though she did appear to have had some recent flares on her legs bilaterally and on her left arm Qualifiers: Eczema type: unspecified Qualified Code(s): L30.9 - Dermatitis, unspecified (4) Malnourished: Start date: 11/03/20 Start time: 16:52 Status: Acute Assessment and plan: Severe nutrition deficit. Nutrition consulted Add magic cups and protein shakes to every meal Qualifiers: Malnutrition type: protein-calorie malnutrition Protein-calorie malnutr ition severity: severe Qualified Code(s): E43 - Unspecified severe protein- calorie malnutrition (5) ASCVD (arteriosclerotic cardiovascular disease): Start date: 11/03/20 Start time: 16:53 Status: Chronic Assessment and plan: continue statin, atenolol, amlodipine, and aspirin (6) Low back pain: Start date: 11/03/20 Start time: 16:54 Status: Chronic Assessment and plan: chronic pain, stating this is why she is always falling, good rectal tone, nothing on imaging. Able to feel sensation to both lower extremities. Denies loss of bowel. Will continue muscle relaxer, add nucynta, and lidoderm patch for pain. PT/OT Qualifiers: Chronicity: chronic Back pain laterality: bilateral Sciatica presence: unspecified whether sciatica present Qualified Code(s): M54.5 - Low back pain; G89.29 - Other chronic pain (7) Smoker: Start date: 11/03/20 Start time: 16:56 Status: Chronic Assessment and plan: Nicotine replacement, no interest in quitting at this time (8) COPD (chronic obstructive pulmonary disease): Start date: 11/03/20 Start time: 16:56 Status: Chronic Assessment and plan: Does not appear to be exacerbated at this time. Not wheezing SOB or requiring oxygen. Qualifiers: COPD type: COPD with acute exacerbation Qualified Code(s): J44.1 - Chronic obstructive pulmonary disease with (acute) exacerbation (9) Hypertension: Start date: 11/03/20 Start time: 16:57 Status: Chronic Assessment and plan: Continue home medications, monitor bp while inpatient Qualifiers: Hypertension type: essential hypertension Qualified Code(s): I10 - Essential (primary) hypertension (10) Renal insufficiency: Start date: 11/03/20 Start time: 16:57 Status: Chronic Assessment and plan: Above baseline. Will give a 500 cc bolus but will be cautious with IVF given CVD. above case discussed with Dr. Zaragoza History of Present Illness History of Present Illness Chief Complaint: Fall, CAP Narrative: 80 y.o female with PMH of pancreatitis, poor nutrition, falls, smoking, HLD, COPD, AAA, CVD, HTN, CKD, Eczema, presents to [facility] after falling last night with complaints of pain to body and head. Labs in the ED remarkable for WBC of 18.25, NA 135, B/C 29 and 1.3, glucose 152, alk phos 118. Imaging with calcification in common femoral artery and femoral artery, only other finding on panscan CT is Mild peripheral right upper lobe infiltrate. she was asked to be admitted to m/s for further management. She will be admitted for IV antibiotics. Doxy will be used due to multiple allergies. Mucinex for cough, IS. She c/o severe back and leg pain and a rash that she states itches every. On evaluation no rash is present and she states she does not have itching. She does state that sometimes the rash is in her hair. This appears to be ezcema. Steroid cream ordered, with eucerin. Several bruises noted to chin, shoulder arm from fall, nucyta for pain along with lidoderm patches and aqua k shaila for back. Nicotine patch for replacement. She will need snif on discharge as she is not safe to go home due to her multiple falls. PT/OT as well. Will monitor labs in am. She denies CP, SOB, N/V/D Review of Systems All systems reviewed & are unremarkable except as noted in HPI and below PFSH Medical History Abdominal aortic aneurysm (12/31/13) 2013 3.7 cm, 2014 3.8 cm Anxiety and depression ASCVD (arteriosclerotic cardiovascular disease) (04/26/11) 04/19 [facility] [place] CATH AND RCA STENT 04/20 MPI NEG FOR ISCHEMIA 02/20 MPI ([facility]) NEG FOR ISCHEMIA COPD Eczema Essential hypertension Hypercholesterolemia IRREGULAR HEART BEAT Skin lesion Stented coronary artery STROKE Weight loss Surgical History Extraction of cataract 04/19/17 DR. CHU; B/L Hernia Repair, Incisional Hysterectomy, Laproscopic Laparoscopic, Ovarian Cystectomy S/P AAA repair (~12/2018) 12/11/18 [facility]- Social History Smoking/Tobacco Use Status: Current every day Tobacco Type: cigarettes Smoking risk assessment performed?: Yes Alcohol Intake: never Drug use: Never Substance use type: does not use Do you feel safe at home: Yes Do you feel safe in your relationship?: Yes Meds Home Medications and Allergies Home Medications Medication Instructions Recorded Confirmed Type [facility] 1 tab PO DAILY 12/11/12 11/03/20 History aspirin [Ecotrin Low Strength] 1 tab PO DAILY tab-cap 12/11/12 11/03/20 History aveva #1 ea 02/04/19 10/17/20 History Oxygen #1 each 02/24/19 10/17/20 History nicotine 21 mg/24 hr daily 1 patch TD Q24H #28 each 05/26/19 11/03/20 Rx transdermal patch albuterol sulfate 90 mcg/actuation 2 puff IH QID PRN #6.7 gm 08/25/19 11/03/20 Rx aerosol inhaler nitroglycerin 0.4 mg sublingual 0.4 mg SUBLINGUAL PRN #25 tab-cap 08/25/19 11/03/20 Rx tablet tizanidine 2 mg tablet 2 mg PO BID PRN #60 tab-cap 08/25/19 11/03/20 Rx trazodone 50 mg tablet 25 - 50 mg PO HS PRN #90 tab-cap 08/25/19 11/03/20 Rx pantoprazole 40 mg tablet,delayed 40 mg PO DAILY #90 tab-cap 03/30/20 11/03/20 Rx release atenolol 25 mg tablet 25 mg PO DAILY #90 tab-cap 05/06/20 11/03/20 Rx atorvastatin 80 mg tablet 80 mg PO DAILY #90 tab-cap 05/06/20 11/03/20 Rx food supplemt, lactose-reduced 237 ml PO DAILY #90 ea 06/10/20 11/03/20 Rx fluoxetine 40 mg capsule 40 mg PO DAILY #90 tab-cap 07/06/20 11/03/20 Rx mupirocin 2 % topical ointment 1 applic TOPICAL BID #15 g 10/17/20 11/03/20 Rx amlodipine 2.5 mg tablet 2.5 mg PO BID #180 tab-cap 10/19/20 11/03/20 Rx lisinopril 40 mg tablet 40 mg PO DAILY #90 tab-cap 10/19/20 11/03/20 Rx triamcinolone acetonide 0.1 % 1 applic TOPICAL BID PRN 7 Days 11/01/20 11/03/20 Rx topical ointment #80 g Allergies Allergy/AdvReac Type Severity Reaction Status Date / Time ciprofloxacin Allergy Severe HIVES; SOB Verified 11/03/20 14:14 gemfibrozil Allergy Severe LOSES EYE Verified 11/03/20 14:14 SIGHT talc Allergy Intermediate Other (See Verified 11/03/20 14:14 Comment) diphenhydramine Allergy Mild ITCHING Verified 11/03/20 14:14 adhesive Allergy Unknown Skin Rash Verified 11/03/20 14:14 ibuprofen Allergy Unknown unknown Verified 11/03/20 14:14 Penicillins Allergy Unknown Anaphylaxsi Verified 11/03/20 14:14 s Sulfa (Sulfonamide Allergy Unknown unknown Verified 11/03/20 14:14 Antibiotics) tetanus immune globulin Allergy Unknown unknown Verified 11/03/20 14:14 isosorbide AdvReac Severe H/A'S Verified 11/03/20 14:14 varenicline AdvReac Severe NIGHTMARES Verified 11/03/20 14:14 nabumetone AdvReac Intermediate NAUSEA; Verified 11/03/20 14:14 VOMITING simvastatin AdvReac Mild unknown Verified 11/03/20 14:14 niacin AdvReac FLUSHING; Unverified 11/03/20 14:14 IRRITABILITY Exam Narrative Exam Narrative: General: Elderly female sitting up in bed cooperative, AAOx 3 and no acute distress, VENETIE IRA as she lost her hearing aids HENMT Head: normocephalic and atraumatic, she does have bruising to her chin Mouth: moist mucous membranes Conjunctivae: normal conjunctivae Sclera: normal sclerae EOM: EOM intact bilaterally Neck: trachea midline and supple, no lymphedema Effort & Inspection: not labored Auscultation: rhonchi to bilateral lower bases, with harsh nonproductive cough Other: Pain with deep inspiration Jugular venous pressure: no JVD Rate: regular rate and not tachycardic Rhythm: regular rhythm, slight murmur GI Palpation: soft, not firm, no guarding, no masses, not rigid and nontender Skin General skin exam: there are areas of dark pigmentation without lesions, at times patient states they itch and they have raised bumps appears to be ezcema Neuro General: patient alert, patient awake, patient oriented x3 under wt, able to see spine Extrem General: no edema Right lower extremity: hip/thigh (Tender to palpation on lateral compression) Other: able to extend at right hip with pain with pain posterior pelvis Appearance: grossly normal Mental Status: mental status grossly normal Results Labs Result diagrams: 11/03/20 10:40 11/03/20 10:40 Labs: Laboratory Results - last 24 hr 11/03/20 11/03/20 11/03/20 10:40 10:40 10:40 WBC 18.25 H RBC 4.85 Hgb 15.3 Hct 45.1 MCV 93.0 MCH 31.5 MCHC 33.9 RDW 12.1 Plt Count 227 MPV 9.5 Immature Gran % 0.7 Neutrophils % 88.7 Lymphocytes % 4.9 Monocytes % 5.0 Eosinophils % 0.4 Basophils % 0.3 Nucleated RBC % 0 Absolute Neutrophils 16.19 H Absolute Lymphocytes 0.89 L Absolute Monocytes 0.91 H Absolute Eosinophils 0.07 Absolute Basophils 0.05 PT 9.9 INR 1.0 Sodium 135 L Potassium 3.9 Chloride 98 Carbon Dioxide 27.4 Anion Gap 9.6 BUN 29 H Creatinine 1.3 H Estimated GFR/1.73 m2 39.51 Glucose 152 H Calcium 9.5 Total Bilirubin 0.9 AST 34 ALT 38 Alkaline Phosphatase 118 H Troponin I < 0.05 Total Protein 7.9 Albumin 4.1 COVID-19 Source SARS-CoV-2 (PCR) Influenza Type A (PCR) Influenza Type B (PCR) RSV (PCR) Patient ABO/Rh Antibody Screen 11/03/20 11/03/20 11/03/20 10:40 12:23 13:55 WBC RBC Hgb Hct MCV MCH MCHC RDW Plt Count MPV Immature Gran % Neutrophils % Lymphocytes % Monocytes % Eosinophils % Basophils % Nucleated RBC % Absolute Neutrophils Absolute Lymphocytes Absolute Monocytes Absolute Eosinophils Absolute Basophils PT INR Sodium Potassium Chloride Carbon Dioxide Anion Gap BUN Creatinine Estimated GFR/1.73 m2 Glucose Calcium Total Bilirubin AST ALT Alkaline Phosphatase Troponin I < 0.05 Total Protein Albumin COVID-19 Source Nasopharyx SARS-CoV-2 (PCR) Negative Influenza Type A (PCR) Negative Influenza Type B (PCR) Negative RSV (PCR) Negative Patient ABO/Rh A Positive Antibody Screen Negative Last Vital Signs Temp 36.7 C 11/03/20 10:11 Pulse 84 11/03/20 14:30 Resp 19 11/03/20 14:31 BP 150/73 H 11/03/20 14:30 Pulse Ox 94 11/03/20 14:40 COVID-19 Screening Have you, or household traveled for leisure in last 14 days?: No Had IN PERSON contact w/suspected or confirmed C-19 person: No
[2020-11-03] MEDS: Acetaminophen 325 MG TAB 650 MG PO (17:01)
[2020-11-03] MEDS: DOXYCYCLINE 100 MG in Normal Saline 100 ML IVPB (17:02)
[2020-11-03] MEDS: Heparin 5,000 UNITS/ML VIAL 5000 UNITS SC (17:02)
[2020-11-03] MEDS: Lidocaine 5% Patch 3 PATCH TP (18:47)
[2020-11-03] MEDS: Normal Saline 500 ML IV (18:48)
[2020-11-03] MEDS: guaiFENesin 600 MG TABCR PO (20:19)
[2020-11-03] MEDS: Normal Saline Flush 10 ML SYR IVP (20:19)
[2020-11-03] MEDS: amLODIPine 2.5 MG TAB PO (20:19)
[2020-11-03] MEDS: Albuterol 2.5 MG/3 ML INH SOLN VIAL UPD (23:28)
[2020-11-04] VITALS (8 sets, daily range): BP systolic 138–163; BP diastolic 67–83; PULSE 70–81; RESP 1–32; TEMP 36.8–37.2; O2SAT 90–98
[2020-11-04] MEDS: Acetaminophen 325 MG TAB 650 MG PO ×4 (00:30→23:35)
[2020-11-04] MEDS: Heparin 5,000 UNITS/ML VIAL 5000 UNITS SC ×4 (00:31→23:35)
[2020-11-04] MEDS: DOXYCYCLINE 100 MG in Normal Saline 100 ML IVPB (04:26)
[2020-11-04] MEDS: Normal Saline Flush 10 ML SYR IVP ×2 (04:26→20:25)
[2020-11-04 06:45] LABS: Abs Immature Grans 0.03 10^3/uL (0.0-0.06); Absolute Basophil Count 0.04 10^3/uL (0.0-0.2); Absolute Lymphocyte Count 1.05 10^3/uL (1.2-3.4); Absolute Monocyte Count 0.39 10^3/uL (0.1-0.8); Absolute Neutrophil Count 6.55 10^3/uL (1.2-6.7); Basophils % 0.5; Eosinophils % 2.4; HCT 38.1 % (36.0-46.0); HGB 13.1 g/dL (11.2-15.7); Immature Grans % 0.4; Lymphocytes % 12.7; MCH 31.7 pg (27.0-33.0); MCHC 34.4 % (32.0-36.0); MCV 92.3 fL (80-95); MPV 9.5 fL (8.0-11.0); Monocytes % 4.7; Neutrophils % 79.3; Nucleated RBC 0 %; Platelet Count 150 10^3/uL (130-400); RBC 4.13 10^6/uL (3.93-5.22); RDW 12.1 % (11.7-14.6); RDW-SD 40.9 fL; WBC 8.26 10^3/uL (4.4-10.8)
[2020-11-04] MEDS: Pantoprazole 40 MG TABCR PO (06:52)
[2020-11-04 06:54] LABS: Anion Gap 8.7 mmol/L (3-11); BUN 20 mg/dL (7-18); CO2 27.3 mmol/L (21.0-32.0); Chloride 102 mmol/L (98-107); Estimated GFR 53.48 (mL/min/1.73m2); Glucose 97 mg/dL (74-106); Magnesium 1.9 mg/dL (1.8-2.4); Potassium 4.1 mmol/L (3.5-5.1); Sodium 138 mmol/L (136-145)
[2020-11-04 07:18] LABS: Procalcitonin < 0.1 ng/mL
[2020-11-04] MEDS: Lisinopril 20 MG TAB 40 MG PO (08:21)
[2020-11-04] MEDS: Aspirin E.C. 81 MG TABEC PO (08:21)
[2020-11-04] MEDS: Atorvastatin 40 MG TAB 80 MG PO (08:21)
[2020-11-04] MEDS: amLODIPine 2.5 MG TAB PO ×2 (08:22→20:16)
[2020-11-04] MEDS: Atenolol 25 MG TAB PO (08:28)
[2020-11-04] MEDS: FLUoxetine 20 MG CAP 40 MG PO (08:28)
[2020-11-04] MEDS: guaiFENesin 600 MG TABCR PO ×2 (08:28→20:16)
--- NOTE | 2020-11-04 09:20 | OT.INIE ---
Occupational Therapy Notes Inpatient Occupational Therapy Evaluation Date: 11/04/20 Referring Doctor:Anita Everett NP OT Orders: Non-Urgent Precautions: DNR/DNI PATIENT PROFILE/ADMITTING DIAGNOSIS: pt is a 80 year old female who presented to the ED after a fall with c/o pain in back and head as well as an itchy rash. She was admitted from the ED to [facility] with the following dx malnourishment, CAP, Falls, smoker, Eczema, ASCVD, LBP, COPD, HTN, renal insufficiency. Past Medical History: Medical History Abdominal aortic aneurysm (12/31/13) 2013 3.7 cm, 2014 3.8 cm Anxiety and depression ASCVD (arteriosclerotic cardiovascular disease) (04/26/11) 04/19 [facility] [place] CATH AND RCA STENT 04/20 MPI NEG FOR ISCHEMIA 02/20 MPI ([facility]) NEG FOR ISCHEMIA COPD Eczema Essential hypertension Hypercholesterolemia IRREGULAR HEART BEAT Skin lesion Stented coronary artery STROKE Weight loss Surgical History Extraction of cataract 04/19/17 DR. CHU; B/L Hernia Repair, Incisional Hysterectomy, Laproscopic Laparoscopic, Ovarian Cystectomy S/P AAA repair (~12/2018) 12/11/18 [facility] Social History/Home Situation: Pt reports that at her baseline level of function she is (I). She notes that she falls sometimes and has a handicap apartment. She begins to speak about her having a nurse come in previously but then states that she told them to leave and felt offended. OT was unable to get a clear baseline from pt in terms of her ADLs. She states that she has 7 children all over. She also mentions that she is not interested in discussing this because it makes her angry with them. OT will talk with care management to try to get a better understanding of pts baseline. She does note that she drives short distances at times and when needed. Equipment owned/DME: Pt reports that she lives in a handicap accessible home with all DME needed SUBJECTIVE: Pt was sitting in bed, she notes that she has difficulty hearing and needs everyone to speak slowly. She states that she is agreeable to OT consult. She reports that she is not (I) always but makes it work. OBJECTIVE: General Observation: Pleasant and agreeable, IV in (R) UE not connected, red rash on (B) LE which she notes that she has to bath every hour. Mental Status: A&Ox2 Pain: c/o pain in low back which she reports is a chronic issue. ROM: RUE AROM WFL for ADLS L UE AROM WFL for ADLs STRENGTH: RUE Shoulder flexion 3-/5, bicep 3/5, tricep 3/5, orderly is symmetrical and strong LUE Shoulder flexion 3-/5, bicep 3/5, tricep 3-/5, orderly is symmetrical and strong FUNCTIONAL MOBILITY/ADLS: BATHING sitting in bed with max (A) Set up/clean up and mod vc throughout Bathing UE (I) face, min (A) (B) UE and (I) abdomen Bathing LE Pt denies reporting that she does this 1x every hour DRESSING sitting in bed Dressing UE Min (A) don and doffing [facility] gown more for directional purposes Dressing LE Pt denies GROOMING (I) brushing hair TOILETING NT EATING Pt performs minimal eating, she is able to (I) bring her cup to her mouth with grasp of digits around. OT was unable to assess other foods at todays session as pt denied all other foods stating she is not hungry. BALANCE: Static sitting Good Dynamic Sitting Good SPECIAL TESTS: Daily Activity Limitations Standardized Measure [facility] AM -PAC ?6 clicks? Daily Activity Inpatient Short Form: Raw score: 19 Standardized score: 40.22 CMS score: 42.80% INFORMED CONSENT/EDUCATION: Pt instructed in purpose of OT Consult and plan of care. ASSESSMENT: Patient is a 80-year-old female referred to occupational therapy services with diagnosis of malnourishment, CAP, Falls, smoker, Eczema, ASCVD, LBP, COPD, HTN, renal insufficiency. Patient presents with clinical signs and symptoms consistent with dx, as demonstrated by the following impairment level findings/ functional limitations: Impairments in ADL/IADL and leisure activities, decreased functional mobility, decreased family and community support, decreased LE mobility, decreased ability to perform her ADLs without (A), decreased cognitive awareness during ADLs (ex: asking where to wash multiple times, this however could be due to medication), decreased strength (B) UE. [facility] score 19 Patient is assessed as a Moderate 30203 complexity based on the following: History: see above Examination: see functional limitations as noted above Presentation: evolving Decision Making: [facility] score 19 GOALS Goals x1 week 1. Grooming- standing at sink (I) with brushing teeth and hair 2. Dressing- sitting in chair (I) UE, min (A) LE 3. Bathing- sitting in chair (I) UE/LE 4. Toileting- on toilet min (A) 5. Eating- (I) PLAN OF CARE/TREATMENT PLAN: 1x/day, 5 days/ week x 1week Initiate Occupational Therapy Services for bathing, dressing, grooming, toileting, eating, transfer training. DISCHARGE RECOMMENDATIONS Based on pts current level of function and impairment level findings, OT does feel that pt would benefit to go to SNF vs. Home with services. TREATMENT TIME/MINUTES/CODES 85644, 15697, 25 minutes (08:55) Joanie Juarez OTR/L [facility]
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
--- NOTE | 2020-11-04 10:21 | PDOC.CMIN ---
- If Service Date Differs Date of service: 11/04/20 Time of Service: 10:21 Care Management Initial Assess REASON FOR HOSPITALIZATION:: CAP, Fall PAST MEDICAL HISTORY/PAST SURGICAL HISTORY:: Medical History. Abdominal aortic aneurysm (12/31/13). 2013 3.7 cm, 2014 3.8 cm. Anxiety and depression. ASCVD (arteriosclerotic cardiovascular disease) (04/26/11). 04/19 [facility] [place] RCA STENT. 04/20 [facility] NEG FOR ISCHEMIA. 02/20 [facility] ([facility]) NEG FOR ISCHEMIA. COPD. Eczema. Essential hypertension. Hypercholesterolemia. IRREGULAR HEART BEAT. Skin lesion. Stented coronary artery. STROKE. Weight loss. Surgical History. Extraction of cataract. 04/19/17 DR. CHU; B/L. Hernia Repair, Incisional. Hysterectomy, Laproscopic. Laparoscopic, Ovarian Cystectomy. S/P AAA repair (~12/2018). 12/11/18 [facility] PREVIOUS FUNCTIONAL STATUS/SOCIAL/FAMILY SUPPORTS:: Kami lives alone in [place]. She has a son, Finn, who lives in [place]. She has local friends who are supportive. She reported that her son wants her to move in with him, but she does not want to leave her home. She is independent with ADL's, although she has been falling recently. She uses a 4WW to ambulate and has MOW delivered. She reports that she still drives. CURRENT FUNCTIONAL STATUS:: Lilia was sitting up in bed when CM met with her. She stated that she was very tired, and has been sleeping on and off throughout the day. When discussing how things are going at home, she reported that her son and a friend have both offered for her to live with them, but she is not planning on going anywhere. She reported that she has not had any good services in the community, and when they have been offered she was disappointed. She stated that they treat me like a little kid, and my body tells me what I can and cannot do. She did admit to multiple falls at home, but at this time she is refusing to go to rehab. CM will discuss this more with her tomorrow, as she was feeling tired and weak, per her report. CM will continue to follow. ADVANCE DIRECTIVES:: [employer] on file, Finn listed as agent. Has patient been provided with info about the portal/API?: Yes Did the patient sign up for the portal?: No CODE STATUS:: DNR/DNI INSURANCE COVERAGE / FINANCIAL ISSUES:: [facility] MCR replacement/ [facility] CURRENT HOME/COMMUNITY SERVICES/EQUIPMENT:: No current services. Hospital bed, bedside commode, grab bars, tub bench, ramp, wheelchair, FWW. PRIMARY CARE PHYSICIAN:: Bonilla Gill POTENTIAL DISCHARGE NEEDS:: Evaluation for further needs, follow up appointments. PATIENT/FAMILY EDUCATION NEEDS:: Review discharge instructions and community based supports, discussion of self care needs and goals of care. ANTICIPATED BARRIERS TO DISCHARGE:: Lilia may be recommended to go to a SNF vs Home with HH services. She has refused services in the past. CM will discuss options with her regarding discharge plans. TRANSPORTATION:: To be determined by disposition. PLAN:: Lilia is currently being treated for pneumonia. She has had multiple falls at home, and as she lives alone, it may be recommended for her to go to a SNF vs home with HH support. CM will discuss these options with Lilia, and offer VPAC, if necessary. Her transport will be dependent on her disposition, likely RCT vs family. CM will continue to follow.
--- NOTE | 2020-11-04 11:03 | W.NUTCONSULT ---
Date of service: 11/04/20 Time of Service: 11:03 Nutritional Consult ASSESSMENT: 80 year old female admitted s/p fall at home with CAP, Protein Calorie Malnutrition (BMI 16.5) with a hx of ETOH abuse, reoccurant pancreatitis, tobacco abuse, COPD. Lilia states she gets meals on wheels at home and that she does not have any food insecurity. Current weight has been stable x 1 year. Diet ordered at [facility] with ensure and magic cups to supplement po intake. Lilia has dentures, no lower dentures but reports no concerns with current meal plan. Supplemented with MVI, folic acid, thiamine for repletion. Low weight most likely due to increased energy utilization due to COPD and decrease in appetite due to excessive use of ETOH and tobacco products. Lilia states she is not interested in gaining weight at this time. NUTRITIONAL DIAGNOSIS: Protein Calorie Malnutrition as evidenced by low BMI, cachexic appearence, temporal muscle wasting. INTERVENTION: continue current meal plan, supplement with magic cups and ensure and CIB as needed. MONITORING AND EVALUATION: weight, po intake, labs, will continue to follow. Time Spent in Nutritional Counseling and Treatment: 10
[2020-11-04] MEDS: QUEtiapine 25 MG TAB PO ×2 (13:21→20:16)
--- NOTE | 2020-11-04 16:02 | W.PM.PROGNOT ---
Date of Service Date of service: 11/04/20 Time of Service: 16:02 Assessment and Plan Assessment and plan (1) CAP (community acquired pneumonia): Start date: 11/04/20 Start time: 16:19 Status: Acute Assessment and plan: Found on CT in ED. Mild peripheral right upper lobe infiltrate Leukocytosis has resolved. Procal less than 0.1 Cough improved Doxy only due to multiple allergies. Blood cultures pending. mucinex IS Repeat labs in am Qualifiers: Laterality: unspecified laterality Qualified Code(s): J18.9 - Pneumonia, unspecified organism (2) Failure to thrive: Start date: 11/04/20 Start time: 16:39 Status: Acute Assessment and plan: Patient has poor nutrition intake, she is cachectic with low BMI. see below palliative consulted. (3) Fall: Start date: 11/04/20 Start time: 16:20 Status: Acute Assessment and plan: Multiple falls, She states she falls all the time unable to state how many times, suspect possible ETOH abuse, though unsure no history and unable to get clear story as she is all over the place when asked questions She is uncooperative with PT. She is not safe to be home alone She would likely be safer being discharged to a [facility] PT/OT to work with her if she is willing Also concern for possible psychiatric disorder or alcohol withdrawal started on seroquel and will do CIWA also on MV, Folic acid, Thiamine Qualifiers: Encounter type: initial encounter Qualified Code(s): W19.XXXA - Unspecified fall, initial encounter (4) Eczema: Start date: 11/04/20 Start time: 16:22 Status: Chronic Assessment and plan: does not appear to be exacerbated at this time. Hydrocortisone and eucerine as needed Qualifiers: Eczema type: unspecified Qualified Code(s): L30.9 - Dermatitis, unspecified (5) Malnourished: Start date: 11/04/20 Start time: 16:22 Status: Acute Assessment and plan: Severe nutrition deficit. Nutrition consulted Add magic cups and protein shakes to every meal Qualifiers: Malnutrition type: protein-calorie malnutrition Protein-calorie malnutrition severity: severe Qualified Code(s): E43 - Unspecified severe protein-calorie malnutrition (6) ASCVD (arteriosclerotic cardiovascular disease): Start date: 11/04/20 Start time: 16:23 Status: Chronic Assessment and plan: continue statin, atenolol, amlodipine, and aspirin (7) Low back pain: Start date: 11/04/20 Start time: 16:23 Status: Chronic Assessment and plan: chronic pain, stating this is why she is always falling, good rectal tone, nothing on imaging. Able to feel sensation to both lower extremities. Denies loss of bowel. Will continue muscle relaxer, nucynta, and lidoderm patch for pain. PT/OT Qualifiers: Chronicity: chronic Back pain laterality: bilateral Sciatica presence: unspecified whether sciatica present Qualified Code(s): M54.5 - Low back pain; G89.29 - Other chronic pain (8) Smoker: Start date: 11/04/20 Start time: 16:35 Status: Chronic Assessment and plan: Nicotine replacement, no interest in quitting at this time (9) COPD (chronic obstructive pulmonary disease): Start date: 11/04/20 Start time: 16:35 Status: Chronic Assessment and plan: Does not appear to be exacerbated at this time. Not wheezing SOB or requiring oxygen. Qualifiers: COPD type: COPD with acute exacerbation Qualified Code(s): J44.1 - Chronic obstructive pulmonary disease with (acute) exacerbation (10) Hypertension: Start date: 11/04/20 Start time: 16:38 Status: Chronic Assessment and plan: Continue home medications, monitor bp while inpatient Qualifiers: Hypertension type: essential hypertension Qualified Code(s): I10 - Essential (primary) hypertension (11) Renal insufficiency: Start date: 11/04/20 Start time: 16:39 Status: Chronic Assessment and plan: Above baseline. Will give a 500 cc bolus but will be cautious with IVF given CVD. above case discussed with Dr. Zaragoza Subjective Subjective Patient reports: still having pain Interval history since last seen: Continues to have severe pain to the right side from falling. She is also failing to thrive she is not eating, per nursing she pushed her lunch tray away. She did not want to work with PT, she attempted to get up but was not able to stand on her own she fell back on to bed. When trying to have conversation with her she does not focus on any one topic she is all over the place. Concern for a psych component. Will trial seroquel and add mirtazepam Exam Narrative Exam Narrative: General: Elderly female sleeping in bed, AAOx 3 and no acute distress, [place] as she lost her hearing aids, all over the place with answering questions Head: normocephalic and atraumatic, she does have bruising to her chin Mouth: moist mucous membranes Conjunctivae: normal conjunctivae Sclera: normal sclerae EOM: EOM intact bilaterally Neck: trachea midline and supple, no lymphedema Effort & Inspection: not labored Auscultation: diminished to bilateral lower bases bilateraly Other: Pain with deep inspiration Jugular venous pressure: no JVD Rate: regular rate and not tachycardic Rhythm: regular rhythm, slight murmur GI Palpation: soft, not firm, no guarding, no masses, not rigid and nontender Skin General skin exam: there are areas of dark pigmentation without lesions, at times patient states they itch and they have raised bumps appears to be ezcema Neuro General: patient alert, patient awake, patient oriented x3 under wt, able to see spine, refusing meals. C/o pain to chest wall, pain with palpation, and general pain overall Extrem General: no edema Right lower extremity: hip/thigh (Tender to palpation on lateral compression) Other: able to extend at right hip with pain with pain posterior pelvis Appearance: grossly normal Mental Status: mental status grossly normal Objective Last Vital Signs Temp 37.2 C 11/04/20 15:29 Pulse 70 11/04/20 15:29 Resp 18 11/04/20 15:29 BP 143/76 H 11/04/20 15:29 Pulse Ox 90 L 11/04/20 15:29 Laboratory Results - last 24 hr 11/04/20 11/04/20 11/04/20 06:23 06:23 06:23 WBC 8.26 D RBC 4.13 Hgb 13.1 D Hct 38.1 MCV 92.3 MCH 31.7 MCHC 34.4 RDW 12.1 Plt Count 150 MPV 9.5 Immature Gran % 0.4 Neutrophils % 79.3 Lymphocytes % 12.7 Monocytes % 4.7 Eosinophils % 2.4 Basophils % 0.5 Nucleated RBC % 0 Absolute Neutrophils 6.55 Absolute Lymphocytes 1.05 L Absolute Monocytes 0.39 Absolute Eosinophils 0.20 Absolute Basophils 0.04 Sodium 138 Potassium 4.1 Chloride 102 Carbon Dioxide 27.3 Anion Gap 8.7 BUN 20 H D Creatinine 1.0 Estimated GFR/1.73 m2 53.48 Glucose 97 D Calcium 9.0 Magnesium 1.9 Procalcitonin < 0.1
[2020-11-04] MEDS: Doxycycline Hyclate 100 MG CAP PO (16:39)
[2020-11-04] MEDS: Albuterol 2.5 MG/3 ML INH SOLN VIAL UPD (16:52)
[2020-11-04] MEDS: Nicotine 21 MG/24 HR PATCH TD (18:49)
[2020-11-04] MEDS: Lidocaine 5% Patch 3 PATCH TP (18:50)
--- NOTE | 2020-11-04 19:50 | NUR.NOTE ---
Nursing Note: Seroquel did have a desired effect. Patient slept for part of the afternoon, and mood was calm when she woke. Did have sob with transfer to the [facility] and difficulty bringing some sputum up. She was given a prn updraft by RT. This had a desired effect. Patient was able to relax. Still poor Po intake at dinner eating less than 25%. Filled out MRI form with patient. Did leave some question serna on it that patient was not able to fully answer
[2020-11-04] MEDS: Multivitamin TAB 1 TAB PO (20:16)
[2020-11-04] MEDS: Mirtazapine 15 MG TAB PO (21:12)
[2020-11-05] VITALS (9 sets, daily range): BP systolic 107–177; BP diastolic 68–85; PULSE 65–88; RESP 18–22; TEMP 36.1–37.3; O2SAT 91–95
[2020-11-05] MEDS: Doxycycline Hyclate 100 MG CAP PO ×2 (04:32→15:48)
[2020-11-05 06:44] LABS: Anion Gap 7.4 mmol/L (3-11); BUN 22 mg/dL (7-18); CO2 26.6 mmol/L (21.0-32.0); CREATININE 1.2 mg/dL (0.55-1.02); Calcium 9.1 mg/dL (8.5-10.1); Chloride 101 mmol/L (98-107); Estimated GFR 43.34 (mL/min/1.73m2); Glucose 99 mg/dL (74-106); Potassium 4.1 mmol/L (3.5-5.1); Sodium 135 mmol/L (136-145)
[2020-11-05] MEDS: amLODIPine 2.5 MG TAB PO ×2 (09:40→19:25)
[2020-11-05] MEDS: Aspirin E.C. 81 MG TABEC PO (09:41)
[2020-11-05] MEDS: Folic Acid 1 MG TAB PO (09:41)
[2020-11-05] MEDS: Multivitamin TAB 1 TAB PO ×2 (09:41→19:25)
[2020-11-05] MEDS: Lisinopril 20 MG TAB 40 MG PO (09:42)
[2020-11-05] MEDS: Acetaminophen 325 MG TAB 650 MG PO ×3 (09:42→23:48)
[2020-11-05] MEDS: QUEtiapine 25 MG TAB PO ×2 (09:42→19:26)
[2020-11-05] MEDS: Atorvastatin 40 MG TAB 80 MG PO (09:42)
[2020-11-05] MEDS: Heparin 5,000 UNITS/ML VIAL 5000 UNITS SC ×3 (09:43→23:42)
[2020-11-05] MEDS: guaiFENesin 600 MG TABCR PO ×2 (09:43→19:25)
[2020-11-05] MEDS: FLUoxetine 20 MG CAP 40 MG PO (09:43)
[2020-11-05] MEDS: Atenolol 25 MG TAB PO (09:43)
[2020-11-05] MEDS: Pantoprazole 40 MG TABCR PO (09:43)
--- NOTE | 2020-11-05 10:30 | RT.EKG_ITS ---
APPROVED REPORT Exam: Resting ECG Patient Location: I HR:76 bpm ECG Measurements Heart Rate 76 AXIS FL 167 P 83 QRSd 89 QRS 71 QT 383 T 57 QTc 431 Conclusion Sinus rhythm...normal P axis, V-rate 60- 99 Probable left atrial enlargement...P >50mS, <-0.10mV V1 Probable left ventricular hypertrophy...multiple LVH criteria
[2020-11-05] MEDS: fentaNYL 12 MCG PATCH TD (11:10)
[2020-11-05] MEDS: THIAMINE 500 MG in Normal Saline 100 ML 200 MG IVPB ×2 (11:27→18:45)
[2020-11-05 11:54] LABS: Iron 42 ug/dL (50-170); Total Iron Binding Capacity 259 ug/dL (250-450); Transferrin Sat 16 % (15-50)
--- NOTE | 2020-11-05 12:05 | NUR.NOTE ---
This RN as well as PT, attempted to get patient out of bed numerous times today, including for meals. Patient refused to ambulate or stand and pivot to the chair. Stated she is unable to breathe even when taken minimal steps. Patient was however agreeable to stand and pivot to the bed commode.
--- NOTE | 2020-11-05 12:08 | PT.INTREAT ---
Date of service: 11/05/20 Time of Service: 09:30 PT Notes Visit Reasons: CAP, FALL Inpatient Physical Therapy Treatment Note [facility] Date: 11/05/2020 PRECAUTIONS: Fall and Activities as tolerated. SUBJECTIVE: Stated she is not willing to try to walk today, but was willing to let me help her transfer from bed on and off the commode. Attempted to have patient perform ther exercises with me, but she continued to change the subjected when attempting to have her try several exercises. We discussed the importance of keeping her arms and legs moving to avoid getting weak while in hospital. She indicated she is moving them. OBJECTIVE: PAIN: Complained of pain throughout her trunk, chest and abdominal regions when she moves. Stated she has had multiple surgeries and has mesh throughout her abdominal region. Stated she would let me assist her to / from commode due to her right leg being weak and giving out on her often. BED MOBILITY/TRANSFERS Supine-sit: Min assist Sit-supine: Min assist Sit-stand: Min assist Stand-sit: Min assist GAIT Assistive Device: none Weight bearing: full Assist: CGA of one, nursing staff SBA only. Distance: bed to commode and commode to bed. THEREX: Not willing to try any exercises with me today. But was pleasant about not wanting to do them. Did not feel they were necessary. ASSESSMENT: Not able to encourage patient to do walking of any distance. Very set on staying in bed. PLAN: Continue to work on getting patient to be more motivated to move both in and out of bed. TREATMENT CODE/TIME: [id number], 9:30 to 9:45 am (15')
[2020-11-05 12:21] LABS: Vitamin B12 722 pg/mL (193-986)
[2020-11-05 12:28] LABS: Folate > 20.0 ng/mL (8.6-20.0)
[2020-11-05] MEDS: Normal Saline Flush 10 ML SYR IVP ×2 (12:43→18:05)
--- NOTE | 2020-11-05 13:41 | W.PM.PROGNOT ---
Date of Service Date of service: 11/05/20 Time of Service: 13:42 Assessment and Plan Assessment and plan (1) CAP (community acquired pneumonia): Start date: 11/05/20 Start time: 13:53 Status: Acute Assessment and plan: Found on CT in ED. Mild peripheral right upper lobe infiltrate Leukocytosis has resolved. Procal less than 0.1 Cough harsh Doxy po. Blood culture negative mucinex IS Qualifiers: Laterality: unspecified laterality Qualified Code(s): J18.9 - Pneumonia, unspecified organism (2) Failure to thrive: Start date: 11/05/20 Start time: 13:54 Status: Acute Assessment and plan: Nutrition evaluated patient recommend high calorie high protein, MVI, Thiamine, Folate. Will do anemia panel and check these levels palliative consulted. She is known to nawaf, who will see her later this week (3) Fall: Start date: 11/05/20 Start time: 13:59 Status: Acute Assessment and plan: Multiple falls, She states she falls all the time unable to state how many times, suspect possible ETOH abuse, though unsure no history and unable to get clear story as she is all over the place when asked questions She is uncooperative with PT. She is not safe to be home alone She would likely be safer being discharged to a [facility] PT/OT to work with her if she is willing Also concern for possible psychiatric disorder or alcohol withdrawal started on seroquel and will do CIWA also on MV, Folic acid, Thiamine Will obtain MRI due to all the falls to r/o Infarct, no signs of CVA. Qualifiers: Encounter type: initial encounter Qualified Code(s): W19.XXXA - Unspecified fall, initial encounter (4) Eczema: Start date: 11/05/20 Start time: 14:00 Status: Chronic Assessment and plan: does not appear to be exacerbated at this time. Hydrocortisone and eucerine as needed Qualifiers: Eczema type: unspecified Qualified Code(s): L30.9 - Dermatitis, unspecified (5) Malnourished: Start date: 11/05/20 Start time: 14:00 Status: Acute Assessment and plan: Severe nutrition deficit. Nutrition consulted Add magic cups and protein shakes to every meal as above Qualifiers: Malnutrition type: protein-calorie malnutrition Protein-calorie malnutrition severity: severe Qualified Code(s): E43 - Unspecified severe protein-calorie malnutrition (6) ASCVD (arteriosclerotic cardiovascular disease): Start date: 11/05/20 Start time: 14:00 Status: Chronic Assessment and plan: continue statin, atenolol, amlodipine, and aspirin (7) Low back pain: Start date: 11/05/20 Start time: 14:01 Status: Chronic Assessment and plan: chronic pain, stating this is why she is always falling, continue relaxer, will add low dose fentanyl patch for pain and lidoderm patch for pain. PT/OT Qualifiers: Chronicity: chronic Back pain laterality: bilateral Sciatica presence: unspecified whether sciatica present Qualified Code(s): M54.5 - Low back pain; G89.29 - Other chronic pain (8) Smoker: Start date: 11/05/20 Start time: 14:01 Status: Chronic Assessment and plan: Nicotine replacement, no interest in quitting at this time (9) COPD (chronic obstructive pulmonary disease): Start date: 11/05/20 Start time: 14:01 Status: Chronic Assessment and plan: Does not appear to be exacerbated at this time. Not wheezing SOB or requiring oxygen. Qualifiers: COPD type: COPD with acute exacerbation Qualified Code(s): J44.1 - Chronic obstructive pulmonary disease with (acute) exacerbation (10) Hypertension: Start date: 11/05/20 Start time: 14:01 Status: Chronic Assessment and plan: Continue home medications, monitor bp while inpatient Qualifiers: Hypertension type: essential hypertension Qualified Code(s): I10 - Essential (primary) hypertension (11) Renal insufficiency: Start date: 11/05/20 Start time: 14:01 Status: Chronic Assessment and plan: At baseline at this time. Poor appetite. Does not tend to eat or drink much. above case discussed with Dr. Zaragoza Subjective Subjective Patient reports: still having pain Interval history since last seen: Continues to have pain. Fenatnyl patch applied to patient as she continues to c/o pain all over that is uncontrolled. She has no s&s of stroke. no dsyphagia, ataxia, facial drooping. She can not give a straight answer of why she is weak or in pain and continues to change where she is hurting though constantly hurting. Will obtain MRI to r/o CVA saturday, as she does have history of CVA and in setting of multiple falls.Suspect likely psych and hearing component as well. She is not safe for discharge home at this time she is refusing to work with PT, she has seen Nawaf from Palliative in the past and stated she would go to a snif if it came down to that. Nawaf will be able to see her later in the week. Palliative consult placed. Exam Narrative Exam Narrative: General: Elderly female sleeping in bed, AAOx 3 and no acute distress, [place] as she lost her hearing aids, all over the place with answering questions, likely due to [place]. Head: normocephalic and atraumatic, she does have bruising to her chin Mouth: moist mucous membranes Conjunctivae: normal conjunctivae Sclera: normal sclerae EOM: EOM intact bilaterally Neck: trachea midline and supple, no lymphedema Effort & Inspection: not labored Auscultation: diminished to bilateral lower bases, harsh cough Other: Pain with deep inspiration, pain everywhere back, legs, arms when lifting Jugular venous pressure: no JVD Rate: regular rate and not tachycardic Rhythm: regular rhythm, slight murmur GI Palpation: soft, not firm, no guarding, no masses, not rigid and nontender Skin General skin exam: there are areas of dark pigmentation without lesions, at times patient states they itch and they have raised bumps appears to be ezcema, not exacerbated at this time. 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 under wt, able to see spine, refusing meals. C/o pain to chest wall, pain with palpation, and general pain overall Extrem General: no edema Right lower extremity: hip/thigh (Tender to palpation on lateral compression) Other: able to extend at right hip with pain with pain posterior pelvis Appearance: grossly normal Mental Status: mental status grossly normal Objective Last Vital Signs Temp 37.3 C 11/05/20 11:37 Pulse 82 11/05/20 11:37 Resp 19 11/05/20 11:37 BP 156/76 H 11/05/20 11:37 Pulse Ox 91 L 11/05/20 11:37 Laboratory Results - last 24 hr 11/05/20 11/05/20 11/05/20 06:12 11:00 11:00 Sodium 135 L Potassium 4.1 Chloride 101 Carbon Dioxide 26.6 Anion Gap 7.4 BUN 22 H Creatinine 1.2 H Estimated GFR/1.73 m2 43.34 Glucose 99 Calcium 9.1 Iron 42 L TIBC 259 Transferrin % Sat 16 Vitamin B12 722 Folate > 20.0 H
--- NOTE | 2020-11-05 17:41 | PDOC.CMPRO ---
- If Service Date Differs Date of service: 11/05/20 Time of Service: 17:41 Care Management Progress Note S/O: Lilia was sitting up in bed when CM met with her. She reported that she had just eaten her lunch, and she was doing ok. She stated that the nurses know how to talk to me now, and that she only takes direction from the doctor. CM spoke to PT, who said that she was pleasant, but declined to participate. CM called her son, Finn, who lives in [place], and stated that she is a very independent woman, who feels that people are trying to take her control away from her. Finn reported that he saw her a couple of weeks ago, and she was a bit rickity on her feet, but doing ok. He stated that she often tries to do too much, and doesn't ask for help, or accept help when it is offered. He reported that she is aware of what is going on and is mentally capable. CM asked that Finn encourage his mother to work with staff to strengthen in order to reach her goal of returning home. He expressed wanting to visit, but understands the policy that we have in place currently, which is no visitation due to Covid 19. CM will continue to follow. A: Lilia is a 80 year old female admitted to [facility] on 11/03/20 with Pneumonia, falls at home. P: Lilia has been resistant to working with PT, and is recommending SNF at this time. Lilia has declined to go to a facility, and is resistant to in home care. She continues to be treated for pneumonia, and PT will continue to encourage her to work with them to gain strength and mobility. Her discharge plan is to be determined by her progress. CM will continue to follow and support discharge planning considerations.
[2020-11-05] MEDS: Nicotine 21 MG/24 HR PATCH TD (18:08)
[2020-11-05] MEDS: Lidocaine 5% Patch 3 PATCH TP (18:33)
[2020-11-06] VITALS (9 sets, daily range): BP systolic 116–156; BP diastolic 65–77; PULSE 70–84; RESP 17–20; TEMP 36.5–36.9; O2SAT 90–97
[2020-11-06] MEDS: Normal Saline Flush 10 ML SYR IVP ×2 (01:56→17:17)
[2020-11-06] MEDS: THIAMINE 500 MG in Normal Saline 100 ML 200 MG IVPB ×3 (01:56→17:17)
[2020-11-06] MEDS: Doxycycline Hyclate 100 MG CAP PO ×2 (03:53→15:50)
[2020-11-06 06:53] LABS: Abs Immature Grans 0.03 10^3/uL (0.0-0.06); Absolute Basophil Count 0.04 10^3/uL (0.0-0.2); Absolute Eosinophil Count 0.59 10^3/uL (0.0-0.7); Absolute Lymphocyte Count 1.31 10^3/uL (1.2-3.4); Absolute Monocyte Count 0.44 10^3/uL (0.1-0.8); Absolute Neutrophil Count 4.87 10^3/uL (1.2-6.7); Basophils % 0.5; Eosinophils % 8.1; HCT 35.8 % (36.0-46.0); HGB 12.2 g/dL (11.2-15.7); Immature Grans % 0.4; MCHC 34.1 % (32.0-36.0); MPV 9.6 fL (8.0-11.0); Nucleated RBC 0 %; Platelet Count 151 10^3/uL (130-400); RBC 3.81 10^6/uL (3.93-5.22); RDW 12.4 % (11.7-14.6); WBC 7.28 10^3/uL (4.4-10.8)
[2020-11-06 06:58] LABS: Anion Gap 6.7 mmol/L (3-11); BUN 33 mg/dL (7-18); CO2 26.3 mmol/L (21.0-32.0); CREATININE 1.5 mg/dL (0.55-1.02); Calcium 8.8 mg/dL (8.5-10.1); Chloride 100 mmol/L (98-107); Glucose 92 mg/dL (74-106); Magnesium 1.7 mg/dL (1.8-2.4); Potassium 4.7 mmol/L (3.5-5.1); Sodium 133 mmol/L (136-145)
[2020-11-06] MEDS: Aspirin E.C. 81 MG TABEC PO (09:03)
[2020-11-06] MEDS: Magnesium Oxide 400 MG TAB PO ×2 (09:03→19:52)
[2020-11-06] MEDS: FLUoxetine 20 MG CAP 40 MG PO (09:03)
[2020-11-06] MEDS: amLODIPine 2.5 MG TAB PO ×2 (09:03→19:53)
[2020-11-06] MEDS: Atenolol 25 MG TAB PO (09:03)
[2020-11-06] MEDS: Atorvastatin 40 MG TAB 80 MG PO (09:04)
[2020-11-06] MEDS: Acetaminophen 325 MG TAB 650 MG PO ×2 (09:04→15:47)
[2020-11-06] MEDS: Multivitamin TAB 1 TAB PO ×2 (09:04→19:51)
[2020-11-06] MEDS: QUEtiapine 25 MG TAB PO ×2 (09:05→19:53)
[2020-11-06] MEDS: Pantoprazole 40 MG TABCR PO (09:05)
[2020-11-06] MEDS: Heparin 5,000 UNITS/ML VIAL 5000 UNITS SC ×2 (09:05→16:10)
[2020-11-06] MEDS: Folic Acid 1 MG TAB PO (09:05)
[2020-11-06] MEDS: guaiFENesin 600 MG TABCR PO ×2 (09:05→19:53)
[2020-11-06 09:11] LABS: Ferritin 161 ng/mL (8-252)
[2020-11-06] MEDS: Normal Saline 250 ML 500 ML IV (09:20)
--- NOTE | 2020-11-06 11:06 | PGE_ITS ---
Date of Service Date of service: 11/06/20 Time of Service: 11:08 Assessment and Plan Assessment and plan (1) CAP (community acquired pneumonia): Start date: 11/06/20 Start time: 11:16 Status: Acute Assessment and plan: Improving Continue doxy po day 3 out of 5 Continue IS BC NGTD Qualifiers: Laterality: unspecified laterality Qualified Code(s): J18.9 - Pneumonia, unspecified organism (2) Failure to thrive: Start date: 11/06/20 Start time: 11:19 Status: Acute Assessment and plan: Nutrition evaluated patient recommend high calorie high protein, MVI, Thiamine, Folate. Anemia panel with low iron, however ferritin and transferrin sat normal Appetite improved with remeron (3) Fall: Start date: 11/06/20 Start time: 11:21 Status: Acute Assessment and plan: CIWA dcd, no sign of withdrawal Will r/o CVA d/t multiple falls, though no S or Symptoms She is agreeable to PT/OT She state rolling walker with seat at home she falls alot with consider different equipment She really would benefit from SNIF Qualifiers: Encounter type: initial encounter Qualified Code(s): W19.XXXA - Unspecified fall, initial encounter (4) Eczema: Start date: 11/06/20 Start time: 11:22 Status: Chronic Assessment and plan: does not appear to be exacerbated at this time. Hydrocortisone and eucerine as needed Qualifiers: Eczema type: unspecified Qualified Code(s): L30.9 - Dermatitis, unspecified (5) Malnourished: Start date: 11/06/20 Start time: 11:22 Status: Acute Assessment and plan: Severe nutrition deficit. Nutrition consulted Add magic cups and protein shakes to every meal as above Qualifiers: Malnutrition type: protein-calorie malnutrition Protein-calorie malnutrition severity: severe Qualified Code(s): E43 - Unspecified severe protein-calorie malnutrition (6) ASCVD (arteriosclerotic cardiovascular disease): Start date: 11/06/20 Start time: 11:22 Status: Chronic Assessment and plan: continue statin, atenolol, amlodipine, and aspirin (7) Low back pain: Start date: 11/06/20 Start time: 11:22 Status: Chronic Assessment and plan: Pain has overall improved chronic pain, stating this is why she is always falling, continue relaxer, will add low dose fentanyl patch for pain and lidoderm patch for pain. PT/OT Qualifiers: Chronicity: chronic Back pain laterality: bilateral Sciatica presence: unspecified whether sciatica present Qualified Code(s): M54.5 - Low back pain; G89.29 - Other chronic pain (8) Smoker: Start date: 11/06/20 Start time: 11:22 Status: Chronic Assessment and plan: Nicotine replacement, no interest in quitting at this time (9) COPD (chronic obstructive pulmonary disease): Start date: 11/06/20 Start time: 11:23 Status: Chronic Assessment and plan: Does not appear to be exacerbated at this time. Not wheezing SOB or requiring oxygen. Qualifiers: COPD type: COPD with acute exacerbation Qualified Code(s): J44.1 - Chronic obstructive pulmonary disease with (acute) exacerbation (10) Hypertension: Start date: 11/06/20 Start time: 11:23 Status: Chronic Assessment and plan: Continue home medications, monitor bp while inpatient Qualifiers: Hypertension type: essential hypertension Qualified Code(s): I10 - Essential (primary) hypertension (11) Renal insufficiency: Start date: 11/06/20 Start time: 11:23 Status: Chronic Assessment and plan: Slightly elevated at this time will give 500 cc bolus and repeat labs in am. above case discussed with Dr. Bob Subjective Subjective Patient reports: other Interval history since last seen: Pain has improved with patch. She is agreeable to working with PT. She states she uses a rolling seated walker at home that she falls a lot with. She denies CP. SOB, N/V/D. Appetite slightly improved. Exam Narrative Exam Narrative: General: Elderly female sleeping in bed, AAOx 3 and no acute distress, improving pain [place] as she lost her hearing aids, answering questions better, appears more alert with better pain management, appetite seems improved Head: normocephalic and atraumatic, she does have bruising to her chin with multi staging colors Mouth: moist mucous membranes Conjunctivae: normal conjunctivae Sclera: normal sclerae EOM: EOM intact bilaterally Neck: trachea midline and supple, no lymphedema Effort & Inspection: not labored Auscultation: diminished to bilateral lower bases, harsh cough Other: Pain with deep inspiration, pain everywhere back, legs, arms when lifting Jugular venous pressure: no JVD Rate: regular rate and not tachycardic Rhythm: regular rhythm, slight murmur GI Palpation: soft, not firm, no guarding, no masses, not rigid and nontender Skin General skin exam: there are areas of dark pigmentation without lesions, at times patient states they itch and they have raised bumps appears to be ezcema, not exacerbated at this time. 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 under wt, able to see spine, refusing meals. C/o pain to chest wall, pain with palpation, and general pain overall Extrem General: no edema Right lower extremity: hip/thigh (Tender to palpation on lateral compression) Other: able to extend at right hip with pain with pain posterior pelvis Appearance: grossly normal Mental Status: mental status grossly normal Objective Last Vital Signs Temp 36.5 C 11/06/20 03:15 Pulse 70 11/06/20 07:20 Resp 17 11/06/20 03:15 BP 135/72 11/06/20 03:15 Pulse Ox 91 L 11/06/20 07:30 Laboratory Results - last 24 hr 11/05/20 11/05/20 11/06/20 11:00 11:00 06:37 WBC RBC Hgb Hct MCV MCH MCHC RDW Plt Count MPV Immature Gran % Neutrophils % Lymphocytes % Monocytes % Eosinophils % Basophils % Nucleated RBC % Absolute Neutrophils Absolute Lymphocytes Absolute Monocytes Absolute Eosinophils Absolute Basophils Sodium 133 L Potassium 4.7 Chloride 100 Carbon Dioxide 26.3 Anion Gap 6.7 BUN 33 H D Creatinine 1.5 H Estimated GFR/1.73 m2 33.50 Glucose 92 Calcium 8.8 Magnesium 1.7 L Iron 42 L TIBC 259 Transferrin % Sat 16 Ferritin Vitamin B12 722 Folate > 20.0 H 11/06/20 11/06/20 06:37 06:37 WBC 7.28 RBC 3.81 L Hgb 12.2 Hct 35.8 L MCV 94.0 MCH 32.0 MCHC 34.1 RDW 12.4 Plt Count 151 MPV 9.6 Immature Gran % 0.4 Neutrophils % 67.0 Lymphocytes % 18.0 Monocytes % 6.0 Eosinophils % 8.1 Basophils % 0.5 Nucleated RBC % 0 Absolute Neutrophils 4.87 Absolute Lymphocytes 1.31 Absolute Monocytes 0.44 Absolute Eosinophils 0.59 Absolute Basophils 0.04 Sodium Potassium Chloride Carbon Dioxide Anion Gap BUN Creatinine Estimated GFR/1.73 m2 Glucose Calcium Magnesium Iron TIBC Transferrin % Sat Ferritin 161 Vitamin B12 Folate
--- NOTE | 2020-11-06 12:41 | PT.INTREAT ---
Date of service: 11/06/20 Time of Service: 10:30 PT Notes Visit Reasons: CAP, FALL Inpatient Physical Therapy Treatment Note [facility] Date: 11/06/2020 PRECAUTIONS: Fall and activities as tolerated SUBJECTIVE: Stated she does exercises in her chair all the time. She is always moving her arms and legs. Tends to not do a lot of exercises with her arms due to her chest/ abdominal region being so sore from all the surgeries she has had. Had a difficult time getting patient to focus on what I was trying to have her do for seated exercises due to her talking about her past experiences and health history. Did not appear interested in doing exercise other than walking. Stated she has all kinds of assistive devices at home to help with her walking. Willing to let me use gait belt today with ambulation. OBJECTIVE: PAIN: Pain in her chest / abdominal region after walking approximately 17ft, but stated she felt comfortable continuing on to chair. Indicated she gets this pain when she uses her arm as well. Fine once she relaxes. BED MOBILITY/TRANSFERS Supine-sit: min assist from nursing to pull herself upright. Sit-stand: CGA Stand-sit: CGA Transferred bed to commode where she was able to urinate. Nursing staff was informed of this. GAIT Assistive Device: FWW Weight bearing: Full Assist: CGA Distance: 28ft commode to chair THEREX: Attempted ther exercises but she was not interested in this. ASSESSMENT: Encouraged that patient was willing to walk with walker today. PLAN: Continue to encourage increased mobility. Possible try some balance /proprioceptive exercises tomorrow if willing. TREATMENT CODE/TIME: [id number], 10:30 to 11:00 am (30')
--- NOTE | 2020-11-06 13:40 | PHA.REVIEW ---
Pharmacy Admission Review - Admission Clinical Review (Last Updated 11/03/20 @ 16:47 by Anita Everett NP) Failure to thrive (Acute) Malnourished (Acute) CAP (community acquired pneumonia) (Acute) Fall (Acute) ciprofloxacin Allergy (Severe, Verified 11/03/20 14:14) HIVES; SOB gemfibrozil Allergy (Severe, Verified 11/03/20 14:14) LOSES EYE SIGHT talc Allergy (Intermediate, Verified 11/03/20 14:14) Other (See Comment) diphenhydramine Allergy (Mild, Verified 11/03/20 14:14) ITCHING adhesive Allergy (Unknown, Verified 11/03/20 14:14) Skin Rash ibuprofen Allergy (Unknown, Verified 11/03/20 14:14) unknown Penicillins Allergy (Unknown, Verified 11/03/20 14:14) Anaphylaxsis Sulfa (Sulfonamide Antibiotics) Allergy (Unknown, Verified 11/03/20 14:14) unknown tetanus immune globulin Allergy (Unknown, Verified 11/03/20 14:14) unknown isosorbide Adverse Reaction (Severe, Verified 11/03/20 14:14) H/A'S varenicline Adverse Reaction (Severe, Verified 11/03/20 14:14) NIGHTMARES nabumetone Adverse Reaction (Intermediate, Verified 11/03/20 14:14) NAUSEA; VOMITING simvastatin Adverse Reaction (Mild, Verified 11/03/20 14:14) unknown niacin Adverse Reaction (Unverified 11/03/20 14:14) FLUSHING; IRRITABILITY Height 5 ft 2 in Weight 44.2 kg - Renal Dosing Renal Dosing: BUN 33 mg/dL (7-18) H D 11/06/20 06:37 Creatinine 1.5 mg/dL (0.55-1.02) H 11/06/20 06:37 Medications needing adjustments: Intervened (crcl ~21ml/min nucynta not recommended. notified provider) - Anticoagulation Anticoagulation: Hgb 12.2 g/dL (11.2-15.7) 11/06/20 06:37 Hct 35.8 % (36.0-46.0) L 11/06/20 06:37 Plt Count 151 10^3/uL (130-400) 11/06/20 06:37 INR 1.0 (0.9-1.1) 11/03/20 10:40 Creatinine 1.5 mg/dL (0.55-1.02) H 11/06/20 06:37 DVT Prohphylaxis: Reviewed Medications: Heparin Therapeutic Anticoagulation: N/A - Relevant Labs Sodium 133 mmol/L (136-145) L 11/06/20 06:37 Potassium 4.7 mmol/L (3.5-5.1) 11/06/20 06:37 Chloride 100 mmol/L (98-107) 11/06/20 06:37 Magnesium 1.7 mg/dL (1.8-2.4) L 11/06/20 06:37 Electrolytes, C-Reactive P, ESR: Reviewed - DM Control DM Control: Glucose 92 mg/dL (74-106) 11/06/20 06:37 Insulin Dosing: N/A - Heart Failure/AZ Heart Failure/AZ: Troponin I < 0.05 ng/mL (<0.06) 11/03/20 13:55 - BP Control BP Control: Blood Pressure 116/68 Blood Pressure 135/72 - Qtc Review If Elevated: Reviewed (462) - IV to PO Switch IV Medications: Reviewed (high dose THIAMINE IV therapy) - Home Meds Home Med List reviewed: Reviewed - Current meds Current Medication Order Review: Reviewed (MRI/MRA tomorrow, bilaterally weak but that is ongoing. doxycycline PO day 3 of 5 for CAP. stop CIWA)
--- NOTE | 2020-11-06 16:21 | CMPROGNOTE_ITS ---
- If Service Date Differs Date of service: 11/06/20 Time of Service: 16:21 Care Management Progress Note S/O: Lilia was sitting up in her chair when CM met with her. She reported that she was doing well today. PT reported that she did well today, walking from the bed to the chair. Lilia discussed her relationship with her family members, reporting that she does not communicate with many of them because they tried to control her life. 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 She said that she often jokes, and enjoys making people laugh. Lilia is hard of hearing, which can be a barrier to her understanding what people are asking of her. She reported that she does not like to be talked down to, like a child. CM asked what her goals of care are, and she reported that she wants to get healthier, and appeared irritated at the question. She also reported that she will only do what her body tells her is ok to do, and she likes to do things her way. She said many times that she does not want to be rushed. CM will continue to follow. A: Lilia is a 80 year old female admitted to [facility] on 11/03/20 with Pneumonia, falls at home. P: Lilia has been resistant to working with PT, and PT is recommending SNF at this time. Lilia has declined to go to a facility, and is resistant to in home care. She continues to be treated for pneumonia, and PT will continue to encourage her to work with them to gain strength and mobility. Her discharge plan is to be determined by her progress. CM will continue to follow and support discharge planning considerations.
--- NOTE | 2020-11-06 16:26 | RESPIRATORY ---
11/06/20 0725- Pt was found to have had 1.5 LPM NC on this am. Anita Everett NP was notified. Pt's SPO2 was obtained on her left earlobe @ 91% on RA. 3-4 mins is needed to get a quality read on this pt.
[2020-11-06] MEDS: Lidocaine 5% Patch 3 PATCH TP (17:31)
[2020-11-06] MEDS: Nicotine 21 MG/24 HR PATCH TD (17:32)
[2020-11-06] MEDS: Mirtazapine 15 MG TAB PO (21:20)
[2020-11-06] MEDS: Albuterol 2.5 MG/3 ML INH SOLN VIAL UPD (21:27)
[2020-11-07] VITALS (8 sets, daily range): BP systolic 126–159; BP diastolic 76–82; PULSE 74–82; RESP 17–20; TEMP 36.4–36.8; O2SAT 90–94
[2020-11-07] MEDS: Acetaminophen 325 MG TAB 650 MG PO ×3 (00:01→17:30)
[2020-11-07] MEDS: Heparin 5,000 UNITS/ML VIAL 5000 UNITS SC ×2 (00:02→10:01)
[2020-11-07] MEDS: Normal Saline Flush 10 ML SYR IVP ×2 (02:23→21:19)
[2020-11-07] MEDS: THIAMINE 500 MG in Normal Saline 100 ML 200 MG IVPB ×2 (02:24→10:01)
[2020-11-07] MEDS: Normal Saline 500 ML 30 ML IV (02:24)
[2020-11-07] MEDS: traZODone 50 MG TAB PO (02:58)
[2020-11-07] MEDS: Doxycycline Hyclate 100 MG CAP PO ×2 (04:06→17:30)
[2020-11-07 07:11] LABS: Anion Gap 7.7 mmol/L (3-11); BUN 28 mg/dL (7-18); CO2 26.3 mmol/L (21.0-32.0); CREATININE 1.3 mg/dL (0.55-1.02); Calcium 9.1 mg/dL (8.5-10.1); Chloride 100 mmol/L (98-107); Estimated GFR 39.51 (mL/min/1.73m2); Glucose 89 mg/dL (74-106); Potassium 4.5 mmol/L (3.5-5.1); Sodium 134 mmol/L (136-145)
[2020-11-07 07:12] LABS: Abs Immature Grans 0.03 10^3/uL (0.0-0.06); Absolute Basophil Count 0.04 10^3/uL (0.0-0.2); Absolute Eosinophil Count 0.52 10^3/uL (0.0-0.7); Absolute Lymphocyte Count 1.12 10^3/uL (1.2-3.4); Absolute Neutrophil Count 4.52 10^3/uL (1.2-6.7); Basophils % 0.6; Eosinophils % 7.8; HCT 33.8 % (36.0-46.0); HGB 11.5 g/dL (11.2-15.7); Immature Grans % 0.5; Lymphocytes % 16.9; MCH 31.8 pg (27.0-33.0); MCV 93.4 fL (80-95); MPV 10.1 fL (8.0-11.0); Neutrophils % 68.2; Nucleated RBC 0 %; Platelet Count 163 10^3/uL (130-400); RBC 3.62 10^6/uL (3.93-5.22); RDW 12.2 % (11.7-14.6); RDW-SD 42.4 fL; WBC 6.63 10^3/uL (4.4-10.8)
[2020-11-07 08:46] LABS: Magnesium 1.9 mg/dL (1.8-2.4)
--- NOTE | 2020-11-07 08:50 | OT.INTREAT ---
Date of service: 11/07/20 Time of Service: 08:15 Occupational Therapy Notes Occupational Therapy Inpatient Treatment Note Date: 11/07/20 PRECAUTIONS: Fall, standard, DNR/DNI SUBJECTIVE: Pt was sitting in chair when OT arrived. She was able to have a conversation but was a little confused throughout. OBJECTIVE: PAIN:no c/o pain FUNCTIONAL MOBILITY Sit-stand: SBA Stand-sit: (S) Bed-Chair: (S) BATHING: standing at sink with FWW Upper Body: (I) face, (B) UE and abdomen Lower Body: Mod (A) (B) LE DRESSING: standing at sink with FWW, mod vc throughout Upper Extremity: Mod (A) [facility] gown Lower Extremity: Mod (A) dn and doffing slippers GROOMING: standing at sink with FWW (I) with brushing hair ASSESSMENT/PLAN: Pt tolerated standing ADLs well, she required vc throughout and step by step directions. No LOB or notable pain or fatigue during session. TREATMENT CODES/TIME: [id number], 20 minutes (08:15) Joanie Juarez OTR/[facility]
--- NOTE | 2020-11-07 09:20 | DI.MRI_ITS ---
EXAM: MR BRAIN WO CLINICAL HISTORY: right sided weakness TECHNIQUE: Multiplanar multisequence MRI of the brain was performed. COMPARISON: CT CT HEAD CERVICAL SPINE WO from 11/03/2020 FINDINGS: VENTRICLES AND EXTRA AXIAL SPACES: There is diffuse cerebral atrophy consistent with the patient's ag e. MIDLINE SHIFT: None. CEREBRAL PARENCHYMA: No focus of restricted diffusion to suggest acute infarct. No space-occupying le hernán identified. There is diffuse increased signal in the white matter on the T2 and FLAIR images con sistent with small vessel ischemic disease. HEMORRHAGE: None. BRAINSTEM/CEREBELLUM: Normal. CALVARIUM: Normal. VISUALIZED PARANASAL SINUSES/MASTOIDS:Clear. [place]: Normal flow void. PIT[place]ARY [place]: Unremarkable. OTHER FINDINGS: None. IMPRESSION: 1. No evidence of an acute infarct. 2. Diffuse chronic microvascular ischemic disease and cerebral atrophy. DATA REPOSITORY:
--- NOTE | 2020-11-07 09:35 | DI.MRI_ITS ---
CLINICAL HISTORY: weakness, r/o cva. TECHNIQUE: Multiplanar multisequence MRA of the brain was performed. COMPARISON: CT brain 11/03/2020. FINDINGS: Internal carotid Arteries: No aneurysm, occlusion or significant stenosis. Anterior Cerebral Arteries: Right: No aneurysm, occlusion or significant stenosis. Left: No aneurysm, occlusion or significant stenosis. Middle Cerebral Arteries: Right: No aneurysm, occlusion or significant stenosis. Left: No aneurysm, occlusion or significant stenosis. Posterior Cerebral Arteries: Right: No aneurysm, occlusion or significant stenosis. Left: No aneurysm, occlusion or significant stenosis. Vertebral Arteries: Right: No aneurysm, occlusion or significant stenosis. Left: No aneurysm, occlusion or significant stenosis. Basilar Artery: No aneurysm, occlusion or significant stenosis. IMPRESSION: No evidence of occlusion or significant stenosis. DATA REPOSITORY:
--- NOTE | 2020-11-07 09:45 | DI.MRI_ITS ---
EXAM: MR ANGIO NECK WO CLINICAL HISTORY: r/o cva, weakness. TECHNIQUE: Multiplanar multisequence MRA of the Neck was performed. COMPARISON: CT CT HEAD CERVICAL SPINE WO from 11/03/2020 FINDINGS: Common Carotid: Right: No dissection, occlusion or significant stenosis. Left: No dissection, occlusion or significant stenosis. External Carotid: Right: No evidence of occlusion or significant stenosis. Left: No evidence of occlusion or significant stenosis. Internal Carotid: Right: No dissection, occlusion or significant stenosis. Left: No dissection, occlusion or significant stenosis. Vertebral Artery: Right: No dissection, occlusion or significant stenosis. Left: No dissection, occlusion or significant stenosis. The visualized paraspinal soft tissues are unremarkable. IMPRESSION: No evidence of dissection, occlusion or significant stenosis. DATA REPOSITORY:
[2020-11-07] MEDS: guaiFENesin 600 MG TABCR PO ×2 (09:57→21:17)
[2020-11-07] MEDS: Atenolol 25 MG TAB PO (09:57)
[2020-11-07] MEDS: QUEtiapine 25 MG TAB PO (09:57)
[2020-11-07] MEDS: Aspirin E.C. 81 MG TABEC PO (09:57)
[2020-11-07] MEDS: Pantoprazole 40 MG TABCR PO (09:57)
[2020-11-07] MEDS: Folic Acid 1 MG TAB PO (09:58)
[2020-11-07] MEDS: FLUoxetine 20 MG CAP 40 MG PO (09:59)
[2020-11-07] MEDS: Atorvastatin 40 MG TAB 80 MG PO (09:59)
[2020-11-07] MEDS: Multivitamin TAB 1 TAB PO ×2 (09:59→21:17)
[2020-11-07] MEDS: amLODIPine 2.5 MG TAB PO ×2 (10:00→21:17)
[2020-11-07] MEDS: Magnesium Oxide 400 MG TAB PO ×2 (10:02→21:17)
[2020-11-07 10:06] LABS: Transferrin 200 mg/dL (201-352)
[2020-11-07 11:10] LABS: Lyme Ab w Rflx to Lyme Confirm Negative (Negative)
--- NOTE | 2020-11-07 11:45 | PGE_ITS ---
Date of Service Date of service: 11/07/20 Time of Service: 11:45 Assessment and Plan Assessment and plan (1) CAP (community acquired pneumonia): Start date: 11/07/20 Start time: 11:50 Status: Acute Assessment and plan: Improving Continue doxy po day 4 out of 5 Continue IS BC NGTD Qualifiers: Laterality: unspecified laterality Qualified Code(s): J18.9 - Pneumonia, unspecified organism (2) Failure to thrive: Start date: 11/07/20 Start time: 11:55 Status: Acute Assessment and plan: Nutrition evaluated patient recommend high calorie high protein, MVI, Thiamine, Folate. Anemia panel with low iron, however ferritin and transferrin sat normal Appetite improved with remeron (3) Fall: Start date: 11/07/20 Start time: 11:59 Status: Acute Assessment and plan: No CVA per MRI, small vessel ischemic disease only no occlusion or stenosis Qualifiers: Encounter type: initial encounter Qualified Code(s): W19.XXXA - Unspecified fall, initial encounter (4) Eczema: Start date: 11/07/20 Start time: 12:00 Status: Chronic Assessment and plan: does not appear to be exacerbated at this time. Hyd rocortisone and eucerine as needed Qualifiers: Eczema type: unspecified Qualified Code(s): L30.9 - Dermatitis, unspecified (5) Malnourished: Start date: 11/07/20 Start time: 12:00 Status: Acute Assessment and plan: Severe nutrition deficit. Nutrition consulted Add magic cups and protein shakes to every meal as above Appetite improving Qualifiers: Malnutrition type: protein-calorie malnutrition Protein-calorie malnutrition severity: severe Qualified Code(s): E43 - Unspecified severe protein-calorie malnutrition (6) ASCVD (arteriosclerotic cardiovascular disease): Start date: 11/07/20 Start time: 12:01 Status: Chronic Assessment and plan: continue statin, atenolol, amlodipine, and aspirin (7) Low back pain: Start date: 11/07/20 Start time: 12:01 Status: Chronic Assessment and plan: Pain has overall improved chronic pain, stating this is why she is always falling, continue relaxer, will add low dose fentanyl patch for pain and lidoderm patch for pain. PT/OT Qualifiers: Chronicity: chronic Back pain laterality: bilateral Sciatica presence: unspecified whether sciatica present Qualified Code(s): M54.5 - Low back pain; G89.29 - Other chronic pain (8) Smoker: Start date: 11/07/20 Start time: 12:01 Status: Chronic Assessment and plan: Nicotine replacement, no interest in quitting at this time (9) COPD (chronic obstructive pulmonary disease): Start date: 11/07/20 Start time: 12:01 Status: Chronic Assessment and plan: Does not appear to be exacerbated at this time. Not wheezing SOB or requiring oxygen. Qualifiers: COPD type: COPD with acute exacerbation Qualified Code(s): J44.1 - Chronic obstructive pulmonary disease with (acute) exacerbation (10) Hypertension: Start date: 11/07/20 Start time: 12:01 Status: Chronic Assessment and plan: Continue home medications, monitor bp while inpatient Qualifiers: Hypertension type: essential hypertension Qualified Code(s): I10 - Essential (primary) hypertension (11) Renal insufficiency: Start date: 11/07/20 Start time: 12:01 Status: Chronic Assessment and plan: at baseline will continue to monitor. above case discussed with Dr. Bob Subjective Subjective Patient reports: no new complaints Interval history since last seen: Sitting up in chair. She appears to have less pain, she is stating being tired, however she just returned from MRI and was given valium for anxiety. Otherwise doing well. Her appetite has improved. She is drinking protein shakes and enjoying them. she denies CP, SOB, N/V/D. She was encouraged to work with PT Exam Narrative Exam Narrative: General: Elderly female sitting up in chair, AAOx 3 and no acute distress, improving pain [place] as she lost her hearing aids, answering questions better, appears more alert with better pain management, appetite improved Head: normocephalic and atraumatic, she does have bruising to her chin with multi staging colors Mouth: moist mucous membranes Conjunctivae: normal conjunctivae Sclera: normal sclerae EOM: EOM intact bilaterally Neck: trachea midline and supple, no lymphedema Effort & Inspection: not labored Auscultation: diminished to bilateral lower bases, harsh cough Other: Pain with deep inspiration, pain everywhere back, legs, arms when lifting Jugular venous pressure: no JVD Rate: regular rate and not tachycardic Rhythm: regular rhythm, slight murmur GI Palpation: soft, not firm, no guarding, no masses, not rigid and nontender Skin General skin exam: there are areas of dark pigmentation without lesions, at times patient states they itch and they have raised bumps appears to be ezcema, not exacerbated at this time. 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 under wt, able to see spine, refusing meals. C/o pain to chest wall, pain with palpation, and general pain overall Extrem General: no edema Right lower extremity: hip/thigh (Tender to palpation on lateral compression) Other: able to extend at right hip with pain with pain posterior pelvis Appearance: grossly normal Mental Status: mental status grossly normal Objective Last Vital Signs Temp 36.4 C L 11/07/20 11:19 Pulse 82 11/07/20 11:19 Resp 18 11/07/20 11:19 BP 126/76 11/07/20 11:19 Pulse Ox 94 11/07/20 11:19 Laboratory Results - last 24 hr 11/04/20 11/05/20 11/07/20 06:23 11:00 06:22 WBC 6.63 RBC 3.62 L Hgb 11.5 Hct 33.8 L MCV 93.4 MCH 31.8 MCHC 34.0 RDW 12.2 Plt Count 163 MPV 10.1 Immature Gran % 0.5 Neutrophils % 68.2 Lymphocytes % 16.9 Monocytes % 6.0 Eosinophils % 7.8 Basophils % 0.6 Nucleated RBC % 0 Absolute Neutrophils 4.52 Absolute Lymphocytes 1.12 L Absolute Monocytes 0.40 Absolute Eosinophils 0.52 Absolute Basophils 0.04 Sodium Potassium Chloride Carbon Dioxide Anion Gap BUN Creatinine Estimated GFR/1.73 m2 Glucose Calcium Magnesium Transferrin 200 L Lyme Disease Antibody Negative 11/07/20 06:22 WBC RBC Hgb Hct MCV MCH MCHC RDW Plt Count MPV Immature Gran % Neutrophils % Lymphocytes % Monocytes % Eosinophils % Basophils % Nucleated RBC % Absolute Neutrophils Absolute Lymphocytes Absolute Monocytes Absolute Eosinophils Absolute Basophils Sodium 134 L Potassium 4.5 Chloride 100 Carbon Dioxide 26.3 Anion Gap 7.7 BUN 28 H Creatinine 1.3 H Estimated GFR/1.73 m2 39.51 Glucose 89 Calcium 9.1 Magnesium 1.9 Transferrin Lyme Disease Antibody
--- NOTE | 2020-11-07 12:55 | PT.INTREAT ---
Date of service: 11/07/20 Time of Service: 08:30 PT Notes Visit Reasons: CAP, FALL Inpatient Physical Therapy Treatment Note [facility] Date: 11/07/2020 PRECAUTIONS: Fall SUBJECTIVE: Lilia reports that she is feeling better today, and feels that she is able to walk further today. OBJECTIVE: PAIN: No c/o pain BED MOBILITY/TRANSFERS Stand-sit: S GAIT Assistive Device: FWW Weight bearing: Full Assist: SBA Distance: 200' Deviation: Slow pacing, appropriate FWW mechanics ASSESSMENT: Patient demonstrates a progression in gait distance with FWW support and SBA as well as improved gait and FWW mechanics versus previous sessions. PLAN: Continue with gait and transfer training and add global strengthening, as tolerated. TREATMENT CODE/TIME: 15 minutes; 75842 (08:30)
--- NOTE | 2020-11-07 13:26 | W.PSYCHCONSU ---
Date of service: 11/07/20 Time of Service: 13:00 History of Present Illness History of Present Illness Chief Complaint: ?PTSD Narrative: I was consulted by Anita Everett NP for psychiatric assistance in managing this patient's symptoms. I did not see the patient but I reviewed her chart and reviewed her recent symptoms with Anita and with Annabelle Bob MD. Dr. Bob had already notified me that they were going to cancel the consult but I did have medications concerns which we discussed. Prior to Dr. Bob's message, I had spoken with Stephanie Swain, Email Operations Manager regarding her social history and discharge planning issues, and her general presentation here in the hospital. I see from chart that she was taking fluoxetine 40mg at home. Also Trazodone prn for insomnia. It appeared that seroquel and mirtazapine were added during this hospitalization. I reviewed with the team the rationale for the medication regimen as arrived at over the course of her stay - all of which was quite rational in the attempt to alleviate patient suffering, specifically anorexia, possible hallucinations (likely not jose hallucinations of dementia or psychosis), confusion, insomnia, and pain. I expressed concern for the high serotonergic load of her medications and possible strategies for minimizing psychotropic medications. Consults Consult date: 11/07/20 Requesting physician: Anita Everett Assessment and Plan Assessment and plan (1) Confusion: Status: Acute Assessment and plan: Plan as arrived at in collaboration with team, my recommendations are thus: - Reduce fluoxetine to 30mg - continue mirtazapine 15mg for insomnia, anorexia, and additive antidepressant/anxiolytic effect given the improve appetite on it - hold seroquel for now although this might be an option if needed if behavioral disturbance of dementia becomes prominent or jose hallucinations when fully awake become evident. - trazodone 25mg prn sundowning - this doesn't work once sundowning begins but if there is a pattern of onset in the afternoon, then give 1 hour before typical onset. Also can be used for nighttime awakenings. Be aware this could worsen confusion in the night. - continue optimal pain management which if untreated worsens confusion, delirium, and mental health in general. - If further input is needed from me then they can be in touch with me first thing in the morning in three days. I informed them that I will be on vacation for the next two days. 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) Anxiety and depression ASCVD (arteriosclerotic cardiovascular disease) (04/26/11) 04/19 [facility] CATH AND RCA STENT 04/20 [facility] NEG FOR ISCHEMIA 02/20 [facility] ([facility]) NEG FOR ISCHEMIA COPD Coronary artery disease Depressive disorder Diverticulosis (04/08/14) haleigh ([place]) Eczema Essential hypertension Gastroesophageal reflux disease + Hpylori per EGD in 2006 Heart murmur echo 2004-mild MR; EF 65% echo 2011 mod MR, EF 65% Hypercholesterolemia IRREGULAR HEART BEAT Osteoporosis Pancreatitis due to biliary obstruction Skin lesion Stented coronary artery STROKE Weight loss Surgical History (Updated 11/03/20 @ 16:47 by Anita Everett NP) Extraction of cataract 04/19/17 DR. CHU; B/L Hernia Repair, Incisional History of incisional hernia repair Hysterectomy, Laproscopic Laparoscopic, Ovarian Cystectomy S/P AAA repair (~12/2018) 12/11/18 [facility] Status post laparoscopic hysterectomy Status post ovarian cystectomy Social History Smoking/Tobacco Use Status: Current every day Tobacco Type: cigarettes Smoking risk assessment performed?: Yes Alcohol Intake: never Drug use: Never Substance use type: does not use Do you feel safe at home: Yes Do you feel safe in your relationship?: Yes Results Last Vital Signs Temp 36.4 C L 11/07/20 11:19 Pulse 82 11/07/20 11:19 Resp 18 11/07/20 11:19 BP 126/76 11/07/20 11:19 Pulse Ox 94 11/07/20 11:19 Labs Result diagrams: 11/07/20 06:22 11/07/20 06:22 Labs: Laboratory Results - last 24 hr 11/04/20 11/05/20 11/07/20 06:23 11:00 06:22 WBC 6.63 RBC 3.62 L Hgb 11.5 Hct 33.8 L MCV 93.4 MCH 31.8 MCHC 34.0 RDW 12.2 Plt Count 163 MPV 10.1 Immature Gran % 0.5 Neutrophils % 68.2 Lymphocytes % 16.9 Monocytes % 6.0 Eosinophils % 7.8 Basophils % 0.6 Nucleated RBC % 0 Absolute Neutrophils 4.52 Absolute Lymphocytes 1.12 L Absolute Monocytes 0.40 Absolute Eosinophils 0.52 Absolute Basophils 0.04 Sodium Potassium Chloride Carbon Dioxide Anion Gap BUN Creatinine Estimated GFR/1.73 m2 Glucose Calcium Magnesium Transferrin 200 L Lyme Disease Antibody Negative 11/07/20 06:22 WBC RBC Hgb Hct MCV MCH MCHC RDW Plt Count MPV Immature Gran % Neutrophils % Lymphocytes % Monocytes % Eosinophils % Basophils % Nucleated RBC % Absolute Neutrophils Absolute Lymphocytes Absolute Monocytes Absolute Eosinophils Absolute Basophils Sodium 134 L Potassium 4.5 Chloride 100 Carbon Dioxide 26.3 Anion Gap 7.7 BUN 28 H Creatinine 1.3 H Estimated GFR/1.73 m2 39.51 Glucose 89 Calcium 9.1 Magnesium 1.9 Transferrin Lyme Disease Antibody
--- NOTE | 2020-11-07 15:05 | NT_ITS ---
Date of service: 11/07/20 Time of Service: 15:05 PT Notes Visit Reasons: CAP, FALL 11/07/2020 Patient unable to participate in PT this afternoon due to sedation effects from medication taken for MRI testing. Hold per PRESCHOOL ASSISTANT PRINCIPAL. Will attempt to resume PT services tomorrow morning.
--- NOTE | 2020-11-07 16:33 | CMPROGNOTE_ITS ---
- If Service Date Differs Date of service: 11/07/20 Time of Service: 16:33 Care Management Progress Note S/O: Lilia was sitting up in her chair when CM met with her. She stated that she was feeling much better today, and she was able to get up and out of bed, using a FWW. Per PT, she has made big improvements, and was walking in the halls with a FWW with standby assist. Lilia maintains her desire to return home, and is adamantly refusing a SNF. If she continues to improve, she may be able to discharge home with services. Palliative will see her later in the week, if she is still at [facility], or will follow up with her outpatient. CM will continue to follow. A: Lilia is a 80 year old female admitted to [facility] on 11/03/20 with Pneumonia, falls at home. P: Lilia has made improvements in her mobility, and would like to return home. She has declined to go to a facility, which was the recommendation from PT at admission. She continues to be treated for pneumonia, and PT will continue to encourage her to work with them to gain strength and mobility. Her discharge plan is to be determined by her progress. CM will continue to follow and support discharge planning considerations.
[2020-11-07] MEDS: Lidocaine 5% Patch 3 PATCH TP (17:31)
[2020-11-07] MEDS: Nicotine 21 MG/24 HR PATCH TD (17:31)
[2020-11-07] MEDS: Mirtazapine 15 MG TAB PO (21:17)
[2020-11-07] MEDS: Docusate Sodium 100 MG CAP PO (21:35)
--- NOTE | 2020-11-08 | DI.RAD_ITS ---
EXAM: XR PORTABLE CHEST AP CLINICAL HISTORY: Follow up pneumonia TECHNIQUE: COMPARISON: CR XR RIBS LT W PA LAT CHEST from 05/04/2020 FINDINGS: The heart is not enlarged. Diaphragm is flattened consistent with COPD. There are changes of mild d iffuse pulmonary scarring. No focal consolidation seen. No pleural effusion identified on this fron geovanny film. IMPRESSION: No evidence of acute process. RADIATION DOSE DELIVERED: Total DLP
[2020-11-08] MEDS: Acetaminophen 325 MG TAB 650 MG PO ×3 (00:20→15:20)
[2020-11-08] MEDS: Heparin 5,000 UNITS/ML VIAL 5000 UNITS SC ×3 (00:20→15:54)
[2020-11-08 03:26] VITALS: BP 154/79; PULSE 70; RESP 19; TEMP 36.2; O2SAT 93
[2020-11-08] MEDS: Doxycycline Hyclate 100 MG CAP PO ×2 (04:47→15:54)
[2020-11-08 06:59] LABS: Anion Gap 6.2 mmol/L (3-11); BUN 28 mg/dL (7-18); CO2 28.8 mmol/L (21.0-32.0); CREATININE 1.3 mg/dL (0.55-1.02); Calcium 9.4 mg/dL (8.5-10.1); Chloride 101 mmol/L (98-107); Estimated GFR 39.51 (mL/min/1.73m2); Glucose 93 mg/dL (74-106); Potassium 4.5 mmol/L (3.5-5.1); Sodium 136 mmol/L (136-145)
[2020-11-08 07:44] VITALS: BP 135/88; PULSE 71; RESP 17; TEMP 36.6; O2SAT 91
--- NOTE | 2020-11-08 08:18 | OTTR_ITS ---
Date of service: 11/08/20 Time of Service: 07:40 Occupational Therapy Notes Occupational Therapy Inpatient Treatment Note Date: 11/08/20 PRECAUTIONS: Fall, standard, DNR/DNI SUBJECTIVE: Pt was sitting in chair when OT arrived. She states that she wants to be (I) so she can go home. OBJECTIVE: PAIN:no c/o pain FUNCTIONAL MOBILITY Sit-stand: (S) Stand-sit: (S) Bed-Chair: (S) BATHING: standing at sink with FWW Upper Body: (I) face, (B) UE and abdomen Lower Body: (I) DRESSING: standing at sink with FWW, min vc throughout Upper Extremity: (I) don and doffing hospital gown Lower Extremity: (I) don and doffing slippers and pants GROOMING: standing at sink with FWW (I) with brushing hair ASSESSMENT/PLAN: Pt tolerated standing ADLs well, she required min vc throughout. OT will continue to work with pt towards increased (I). TREATMENT CODES/TIME: 60981, 20 minutes (07:40) Joanie Juarez, OTR/L [facility]
[2020-11-08] MEDS: Aspirin E.C. 81 MG TABEC PO (08:47)
[2020-11-08] MEDS: Normal Saline Flush 10 ML SYR IVP ×2 (08:47→20:12)
[2020-11-08] MEDS: FLUoxetine 10 MG TAB 30 MG PO (08:48)
[2020-11-08] MEDS: Magnesium Oxide 400 MG TAB PO ×2 (08:48→20:11)
[2020-11-08] MEDS: guaiFENesin 600 MG TABCR PO ×2 (08:48→20:12)
[2020-11-08] MEDS: Folic Acid 1 MG TAB PO (08:48)
[2020-11-08] MEDS: Atenolol 25 MG TAB PO (08:48)
[2020-11-08] MEDS: Pantoprazole 40 MG TABCR PO (08:49)
[2020-11-08] MEDS: amLODIPine 2.5 MG TAB PO ×2 (08:49→20:12)
[2020-11-08] MEDS: Thiamine 100 MG TAB PO (08:49)
[2020-11-08] MEDS: Multivitamin TAB 1 TAB PO ×2 (08:49→20:11)
--- NOTE | 2020-11-08 09:57 | PT.INTREAT ---
Date of service: 11/08/20 Time of Service: 09:05 PT Notes Visit Reasons: CAP, FALL Inpatient Physical Therapy Treatment Note [facility] Date: 11/08/2020 PRECAUTIONS: Fall SUBJECTIVE: Lilia is pleasant, conversational, and agreeable to participating in PT. She states that she continues to feel better, and feels that she has more energy. OBJECTIVE: PAIN: No c/o pain BED MOBILITY/TRANSFERS Sit-stand: S Stand-sit: S GAIT Assistive Device: 4WW Weight bearing: Full Assist: S Distance: 900' Deviation: Seated rest x1, minimal SOB 4WW MECHANICS: Patient demonstrates appropriate use of brakes and seat, although requires cueing for use of locks. ASSESSMENT: Patient tolerated a significant progression in gait distance with use of 4WW. She required seated rest x1 and minimal SOB was observed with gait training. PLAN: Continue with gait training and global strengthening, as tolerated, for continued progression toward baseline level of function. TREATMENT CODE/TIME: 50 minutes; 42779 x3
[2020-11-08] MEDS: fentaNYL 12 MCG PATCH TD (10:06)
[2020-11-08 11:20] VITALS: BP 169/85; PULSE 80; RESP 18; TEMP 36.5; O2SAT 93
[2020-11-08 14:04] LABS: Anaplasma phagocytophilum Negative (Negative); B. miyamotoi PCR Negative (Negative); Babesia divergens/MO-1 Negative (Negative); Babesia duncani Negative (Negative); Babesia microti Negative (Negative); Ehrlichia chaffeensis Negative (Negative); Ehrlichia ewingii/canis Negative (Negative); Ehrlichia muris eauclairensis Negative (Negative)
[2020-11-08] MEDS: Albuterol 2.5 MG/3 ML INH SOLN VIAL UPD (15:21)
[2020-11-08 15:24] VITALS: BP 152/77; PULSE 79; RESP 18; TEMP 37.1; O2SAT 94
[2020-11-08 16:18] LABS: Bilirubin Negative (Negative); Blood Trace-intact (Negative); Clarity Clear (Clear); Glucose Negative (Negative); Ketones Negative (Negative); Leukocyte Esterase Negative (Negative); Nitrite Negative (Negative); Urobilinogen 0.2 EU/dL (Up TO 0.2)
[2020-11-08 16:34] LABS: Bacteria Negative HPF (Negative); C & S Indicated? No; Crystals Negative HPF (Negative); Epithelial Cells Few HPF (Negative); Mucus Negative (Negative); Other Cells Few Transitional (Negative)
[2020-11-08] MEDS: Nicotine 21 MG/24 HR PATCH TD (17:38)
[2020-11-08] MEDS: Lidocaine 5% Patch 3 PATCH TP (17:40)
--- NOTE | 2020-11-08 17:51 | PDOC.CMPRO ---
Care Management Progress Note S/O: Lilia was sitting up in her chair when CM met with her. She talked in length about her current situation and struggles but stated but that's how I want it. She discussed her good friend Chandler providing great support for her, and offering her to stay with him and his SO, as well. Chandler brought her to the hospital and will transport her home. When discussing home services, Lilia identifies feeling lonely, but also not being told what to do. She reports not currently driving unless it is during good weather days to [place] or [place]. She reports utilizing MOWs as well. 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 She reports having more rules due to out of staters moving into her housing development; such as she can not go outside. She fears her cellar is filling with water and shares her only worry is having someone check the pump. She states an RN from [facility] came to her home and told her it stunk. She was offended, and has been slowing cleaning her home but states she does not want to deal with rude or demanding people in her home. She states she just wants a peaceful life. Lilia shares that she had to put her dogs down and had them cremated so that they can be buried with her, when its time. She reports her son offered her to live in [place], but she does not feel safe there and would not enjoy driving over there and [place] not like [place] [facility] [place], [place]. She is considering allowing home health and wishes she could connect with others more. CM will continue to follow. A: Lilia is a 80 year old female admitted to [facility] on 11/03/20 with Pneumonia, falls at home. P: Lilia has made improvements in her mobility, and would like to return home; anticipate she will have new orders for VNA (CM notified Luis M of [facility]) if willing, and transport via private vehicle with her friend, Chandler. CM will continue to follow and support discharge planning considerations.
--- NOTE | 2020-11-08 18:09 | W.PM.PROGNOT ---
Date of Service Date of service: 11/08/20 Time of Service: 17:00 Assessment and Plan Assessment and plan (1) CAP (community acquired pneumonia): Status: Resolved Assessment and plan: Resolved. D/c doxycycline Continue IS Qualifiers: Laterality: unspecified laterality Qualified Code(s): J18.9 - Pneumonia, unspecified organism (2) Failure to thrive: Status: Acute Assessment and plan: continue high calorie high protein diet, MVI, Thiamine, Folate. Continue remeron for appetite (3) Fall: Status: Acute Assessment and plan: Discussed with PT. Patient is cleared to be discharged home with home health physical therapy. She is considering it. Qualifiers: Encounter type: initial encounter Qualified Code(s): W19.XXXA - Unspecified fall, initial encounter (4) Eczema: Status: Chronic Assessment and plan: Continue Hydrocortisone and eucerine as needed Qualifiers: Eczema type: unspecified Qualified Code(s): L30.9 - Dermatitis, unspecified (5) Malnourished: Status: Acute Assessment and plan: Continue dietary supplements as above Qualifiers: Malnutrition type: protein-calorie malnutrition Protein-calorie malnutrition severity: severe Qualified Code(s): E43 - Unspecified severe protein-calorie malnutrition (6) ASCVD (arteriosclerotic cardiovascular disease): Status: Chronic Assessment and plan: continue statin, atenolol, and aspirin (7) Low back pain: Status: Chronic Assessment and plan: Controlled. Continue fentanyl patch, tizanidine. Has not required tapentadol prn today. Qualifiers: Chronicity: chronic Back pain laterality: bilateral Sciatica presence: unspecified whether sciatica present Qualified Code(s): M54.5 - Low back pain; G89.29 - Other chronic pain (8) Smoker: Status: Chronic Assessment and plan: Continue nicotine patch. (9) COPD (chronic obstructive pulmonary disease): Status: Chronic Assessment and plan: At baseline. No change in tx. Qualifiers: COPD type: COPD with acute exacerbation Qualified Code(s): J44.1 - Chronic obstructive pulmonary disease with (acute) exacerbation (10) Hypertension: Status: Chronic Assessment and plan: Continue lisinopril 40 mg, amlodipine, 5 mg daily, atenolol 25 mg PO daily. Qualifiers: Hypertension type: essential hypertension Qualified Code(s): I10 - Essential (primary) hypertension (11) Renal insufficiency: Status: Chronic Assessment and plan: Follow up as outpatient. At baseline (12) DVT prophylaxis: Status: Acute Assessment and plan: SC heparin (13) Discharge planning issues: Status: Acute Assessment and plan: DNR/DNI Plan for discharge home tomorrow Subjective Subjective Interval history since last seen: Ms Sebastián Jenkins states that she is happy she has had a bowel movement today. She thinks the apple sauce helped. She denies dizziness, chest pain, shortness of breath, but it's very hard to get these answers out of her. She stated to care management that she would like to go home tomorrow, which we are planning. Exam Narrative Exam Narrative: General: Pleasant elderly female, hard of hearing, requiring asking the same question multiple times HEENT: EOMI, MMM Heart: RRR, no m/r/g Lungs: CTAB Abdomen: soft, distended, nontender Extremities: no edema BLEs Objective Last Vital Signs Temp 37.1 C 11/08/20 15:24 Pulse 79 11/08/20 15:24 Resp 18 11/08/20 15:24 BP 152/77 H 11/08/20 15:24 Pulse Ox 94 11/08/20 15:24 Laboratory Results - last 24 hr 11/04/20 11/08/20 11/08/20 06:23 06:15 15:40 Sodium 136 Potassium 4.5 Chloride 101 Carbon Dioxide 28.8 Anion Gap 6.2 BUN 28 H Creatinine 1.3 H Estimated GFR/1.73 m2 39.51 Glucose 93 Calcium 9.4 Urine Color Yellow Urine Clarity Clear Urine pH 6.0 Ur Specific [place] 1.020 Urine Protein Negative Urine Ketones Negative Urine Blood Trace-intact H Urine Nitrite Negative Urine Bilirubin Negative Urine Urobilinogen 0.2 Ur Leukocyte Esterase Negative Urine RBC 3-5 H Urine WBC 3-5 Ur Epithelial Cells Few Urine Crystals Negative Urine Bacteria Negative Urine Mucus Negative Urine Other Few transitional Ur Culture Indicated? No Urine Glucose Negative A.phagocytophil DNA PCR Negative B. divergens/MO-1 PCR Negative Babesia duncani (PCR) Negative Babesia microti DNA PCR Negative Borrelia (PCR) Negative E.chaffeensis DNA (PCR) Negative E.ewingii/canis DNA PCR Negative E. muris-like DNA (PCR) Negative
[2020-11-08 19:25] VITALS: BP 123/63; PULSE 74; RESP 18; TEMP 36.8; O2SAT 92
[2020-11-08] MEDS: Atorvastatin 40 MG TAB PO (21:18)
[2020-11-08] MEDS: Mirtazapine 15 MG TAB PO (21:18)
[2020-11-08 22:44] VITALS: BP 175/71; PULSE 68; RESP 20; TEMP 36.7; O2SAT 93
[2020-11-09] MEDS: Acetaminophen 325 MG TAB 650 MG PO ×2 (00:03→08:48)
[2020-11-09] MEDS: Heparin 5,000 UNITS/ML VIAL 5000 UNITS SC ×2 (00:03→08:48)
[2020-11-09 03:21] VITALS: BP 130/66; PULSE 63; RESP 17; TEMP 36.6; O2SAT 92
[2020-11-09 06:02] VITALS: BP 137/79; PULSE 71; RESP 18; TEMP 37; O2SAT 94
[2020-11-09 07:38] VITALS: BP 118/72; PULSE 75; RESP 17; TEMP 36.6; O2SAT 94
[2020-11-09 07:42] VITALS: BP 126/65; PULSE 68; RESP 19; TEMP 36.7; O2SAT 89
[2020-11-09] MEDS: Aspirin E.C. 81 MG TABEC PO (08:48)
[2020-11-09] MEDS: FLUoxetine 10 MG TAB 30 MG PO (08:48)
[2020-11-09] MEDS: Thiamine 100 MG TAB PO (08:48)
[2020-11-09] MEDS: amLODIPine 2.5 MG TAB PO (08:49)
[2020-11-09] MEDS: Folic Acid 1 MG TAB PO (08:49)
[2020-11-09] MEDS: Multivitamin TAB 1 TAB PO (08:49)
[2020-11-09] MEDS: Normal Saline Flush 10 ML SYR IVP (08:49)
[2020-11-09] MEDS: guaiFENesin 600 MG TABCR PO (08:49)
[2020-11-09] MEDS: Magnesium Oxide 400 MG TAB PO (08:49)
[2020-11-09] MEDS: Pantoprazole 40 MG TABCR PO (08:49)
[2020-11-09] MEDS: Atenolol 25 MG TAB PO (08:49)
[2020-11-09 09:32] VITALS: O2SAT 96
--- NOTE | 2020-11-09 09:44 | OT.INTREAT ---
Date of service: 11/09/20 Time of Service: 08:55 Occupational Therapy Notes Occupational Therapy Inpatient Treatment Note Date: 11/09/20 PRECAUTIONS: Fall, standard, DNR/DNI SUBJECTIVE: Pt states that she is ready to go home. She notes that she will have to re-learn her morning routine but states that she is excited to be in her own home with her own stuff. OBJECTIVE: PAIN:no c/o pain, although at times states that she gets short winded Therapeutic Activities [id number]: OT had pt perform functional gross and dynamic motor control for assessment of safety with ADLs and increased (I). She tolerated this well with no LOB, no safety concerns and ability to perform both sitting and standing ADLs with min vc throughout as well as understanding of good body awareness throughout. ASSESSMENT/PLAN: Plan is for pt to return home today with services. She is receptive to services and feels that she has made increased gains in terms of her functional (I). TREATMENT CODES/TIME: 65252, 10 minutes (08:55) Joanie Juarez OTR/L [facility]
--- NOTE | 2020-11-09 10:16 | RESPIRATORY ---
RT spoke with pt today about home O2 testing and setup. Pt refused to perform exercise oximetry test and is also refusing home oxygen. Pt was advised by Respiratory about the risks for going home without oxygen if it is in fact needed. Pt demonstrated understanding of risks and is still choosing to refuse home oxygen setup.
--- NOTE | 2020-11-09 11:12 | PDOC.HHF2F_ITS ---
Home Health Certification Home Health Certification: 1. Encounter Date and Reason I certify that MADELINE TARIQ was seen by Jazmin Casanova on 11/09/20 and that I had a [id number] encounter with this patient that meets the physician face to face encounter requirements. 2. Clinical Findings Supporting Skilled Need and Homebound Status I certify that home health services are medically necessary, include either intermittent mcfp and/or physical/speech therapy, and that this p atient is homebound in that absences from the home require considerable and taxing effort and are infrequent or of short duration, or are attributable to the need to receive medical care. [X] (a) Attached documentation from encounter provides clinical findings supporting skilled need and homebound status (including what assistance patient requires to leave the home). The encounter with the patient was in whole, or in part, for the following medical condition, which is the primary reason for home health care: CAP, FALL [facility]: routine evaluation and medication oversight Physical Therapy: routine evaluation and treatment, home safety, exercise program, gait training/fall prevention Homebound: patient is unable to safely leave the house unassisted due to shortness of breath and fatigue, decreased strength and endurance. 3. Certification and Authentication I certify that I composed the above information based on my clinical judgement relating to this patient's medical condition and, if applicable, clinical findings communicated to me by the NPP or inpatient physician who performed the Home Health Referral. All further orders will be obtained through (Community Based Physician - PCP)
[2020-11-09 11:28] VITALS: BP 114/66; PULSE 71; RESP 20; TEMP 36.9; O2SAT 94
--- NOTE | 2020-11-09 12:01 | W.PM.DS.N ---
Date of service: 11/09/20 Time of Service: 12:02 DS: Diagnosis Discharge Diagnosis (1) CAP (community acquired pneumonia): Status: Resolved (2) Failure to thrive: Status: Acute (3) Fall: Status: Acute (4) Eczema: Status: Chronic (5) Malnourished: Status: Acute (6) ASCVD (arteriosclerotic cardiovascular disease): Status: Chronic (7) Low back pain: Status: Chronic (8) COPD (chronic obstructive pulmonary disease): Status: Chronic (9) Hypertension: Status: Chronic (10) Renal insufficiency: Status: Chronic Discharge Plan Disposition Patient Disposition: HOME W/HOME HEALTH SERVICE Condition: Stable Discharge Details Reason For Visit: CAP, FALL Admit Date/Time: 11/03/20 13:46 Admit Provider: Kevin Zaragoza Attending Provider: Kevin Zaragoza Primary Care Provider: Bonilla Gill Hospital Course Hospital Course: This is a 80 year old female with history of pancreatitis, falls, smoking, HLD, COPD, AAA, CVD, HTN, CKD, eczema, who presented to the ED at [facility] after having a mechanical fall at home,with complaints of pain to body and head. Work up in the emergency department showed no acute fractures or acute findings on head CT. She was diagnosed with community acquired pneumonia and was started on doxycycline d/t multiple allergies. She improved with treatment and white count normalized, cough improved, and blood cultures remained negative. She was followed by physical therapy and case management and recommendations were for swing level care but she declined. She was resistant to work with physical therapy, declines oximetry walk test as she does not want oxygen at home. She is agreeable to home health services which will be arranged at discharge. She has completed a 5 day course of doxycycline and is eating and drinking, but appetite remains poor. Palliative care will continue to follow outpatient. No changes to her current medication regimen. She will be discharged with home health services, nursing and PT. discharge discussed with DR Bob Home Meds and New Rx's Prescriptions: New multivitamin [Multiple Vitamins] Tablet 1 tab PO BID Qty: 60 RF: 0 magnesium oxide 400 mg (241.3 mg magnesium) Tablet 400 mg PO BID Qty: 60 RF: 0 lidocaine [Lidoderm] 5 % Adhesive Patch,Medicated 3 patch topical Q24H Qty: 10 RF: 0 mirtazapine 15 mg Tablet 15 mg PO HS Qty: 30 RF: 0 fentanyl 12 mcg/hr Patch 72 Hour 12 mcg transdermal Q72H Qty: 2 RF: 0 Nucynta 50 mg Tablet 50 mg PO Q6H PRN PRNQty: 10 RF: 0 thiamine mononitrate (vit B1) [Vitamin B-1 (mononitrate)] 100 mg Tablet 100 mg PO DAILY Qty: 30 RF: 0 Continued nicotine [Nicoderm CQ] 21 mg/24 hr patch 24 hour 1 patch TD Q24H Qty: 28 RF: 1 atenolol 25 mg tablet 25 mg PO DAILY Qty: 90 RF: 3 mupirocin 2 % ointment 1 applic topical BID Qty: 15 RF: 0 (DME) Oxygen Tank See Dose Instructions .ROUTE .MEDSUPPLY Qty: 1 RF: 0 tizanidine 2 mg tablet 2 mg PO BID PRN (Reason: muscle spasticity) Qty: 60 RF: 0 nitroglycerin [Nitrostat] 0.4 mg tablet, sublingual 0.4 mg Sublingual PRN Qty: 25 RF: 2 albuterol sulfate [Ventolin HFA] 90 mcg/actuation HFA aerosol inhaler 2 puff IH QID PRN (Reason: shortness of breath or wheezing) Qty: 6.7 RF: 2 triamcinolone acetonide 0.1 % ointment 1 applic topical BID PRN (Reason: leg rash) 7 Days Qty: 80 RF: 1 aspirin [Ecotrin Low Strength] 81 MG tablet,delayed release (DR/EC) 1 tab PO DAILY RF: 0 [facility] 1 EACH tablet 1 tab PO DAILY RF: 0 (DME) aveva patch Qty: 1 RF: 0 pantoprazole 40 mg tablet,delayed release (DR/EC) 40 mg PO DAILY Qty: 90 RF: 3 Ensure Active High Protein Liquid 237 ml PO DAILY Qty: 90 RF: 3 fluoxetine [Prozac] 40 mg capsule 40 mg PO DAILY Qty: 90 RF: 3 amlodipine 2.5 mg tablet 2.5 mg PO BID Qty: 180 RF: 4 Changed atorvastatin [Lipitor] 80 mg tablet 40 mg PO DAILY Qty: 90 RF: 3 trazodone 50 mg tablet 25 mg PO HS PRN (Reason: insomnia) Qty: 90 RF: 3 Discontinued lisinopril 40 mg tablet 40 mg PO DAILY Qty: 90 RF: 4 Discharge Instructions Instructions: Deep Vein Thrombosis (DC), Fall Prevention (DC) Stand Alone Forms: Nursing Discharge Form Referrals: Bonilla Gill [Primary Care Provider] - 11/16/20 10:20 am Activity:: Activity as Tolerated Equipment/Supplies:: No Equipment Needed Diet:: As Tolerated Discharge Orders Discharge Orders: Discharge Order (Routine); Ordered 11/09/20 Ordered By: Jazmin Casanova Discharge Data Discharge Date/Time-TO BE ENTERED AT DEPARTURE: 11/09/20 13:51 DS: Summary Time Spent with Patient providing and/or coordinating discharge services: Greater than 30 minutes Status at Discharge Functional status at discharge: uses cane/walker Overall status at discharge: patient is progressing back to baseline Mental Status: mental status grossly normal Speech and Movement: speech and movement normal Mood: congruent mood Affect: normal affect Exam Narrative Exam Narrative: General: Pleasant elderly female of stated age, hard of hearing, in no acute distress, HEENT: atraumatic normocephalic, slightly dry oral mucosa Heart: RRR Lungs: respirations even and unlabored, dim bases with fine rales Abdomen: soft, distended, nontender, positive bowel sounds Extremities: moves all extremities, no edema Psych Mental Status: mental status grossly normal Speech and Movement: speech and movement normal Mood: congruent mood Affect: normal affect DS: Data Vitals/I&O Vitals and I&O: Vital Signs Temperature 36.9 C 11/09/20 11:28 Temperature Source Tympanic 11/09/20 11:28 Pulse 71 11/09/20 11:28 Pulse Rhythm Regular 11/09/20 02:56 Pulse 83 11/03/20 14:31 Respiratory Rate 20 11/09/20 11:28 Respiratory Effort 11/09/20 02:56 Respiratory Depth Normal 11/09/20 02:56 Respiratory Pattern Normal 11/09/20 02:56 Blood Pressure 114/66 11/09/20 11:28 Blood Pressure Mean 93 11/03/20 14:30 Blood Pressure Position Supine 11/03/20 10:11 Pulse Oximetry 94 11/09/20 11:28 Oxygen Delivery Method Room Air 11/09/20 11:28 Oxygen Flow Rate 0 11/09/20 11:28 Pain Level 3 11/09/20 11:28 Comment 11/09/20 09:32 Intake & Output 11/08/20 11/09/20 11/09/20 23:59 11:59 23:59 Intake Total 660 / 1110 900 / 900 Output Total 825 / 1475 900 / 900 Balance -165 / -365 0 / 0 Weight 41.1 kg Intake: IV Oral 650 / 1090 890 / 890 Output: Urine 825 / 1475 900 / 900 Other: Urine Color Yellow Yellow Urine Appearance Clear Clear Urine Odor Normal Normal Stool Occult Blood Negative Stool Size Moderate Stool Characteristics Soft Formed Brown Voiding Methods Bedside Commode Bedside Commode Data Completed and Pending Labs on day of discharge: Labs from last 24 hours 11/08/20 11/04/20 15:40 06:23 Urine Color Yellow Urine Clarity Clear Urine pH 6.0 Ur Specific [place] 1.020 Urine Protein Negative Urine Ketones Negative Urine Blood Trace-intact H Urine Nitrite Negative Urine Bilirubin Negative Urine Urobilinogen 0.2 Ur Leukocyte Esterase Negative Urine RBC 3-5 H Urine WBC 3-5 Ur Epithelial Cells Few Urine Crystals Negative Urine Bacteria Negative Urine Mucus Negative Urine Other Few transitional Ur Culture Indicated? No Urine Glucose Negative A.phagocytophil DNA PCR Negative B. divergens/MO-1 PCR Negative Babesia duncani (PCR) Negative Babesia microti DNA PCR Negative Borrelia (PCR) Negative E.chaffeensis DNA (PCR) Negative E.ewingii/canis DNA PCR Negative E. 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) Anxiety and depression ASCVD (arteriosclerotic cardiovascular disease) (04/26/11) 04/19 [facility] [place] CATH AND RCA STENT 04/20 MPI NEG FOR ISCHEMIA 02/20 MPI ([facility]) NEG FOR ISCHEMIA COPD Coronary artery disease Depressive disorder Diverticulosis (04/08/14) haleigh (Neftali) Eczema Essential hypertension Gastroesophageal reflux disease + Hpylori per EGD in 2006 Heart murmur echo 2004-mild MR; EF 65% echo 2011 mod MR, EF 65% Hypercholesterolemia IRREGULAR HEART BEAT Osteoporosis Pancreatitis due to biliary obstruction Skin lesion Stented coronary artery STROKE Weight loss Surgical History (Updated 11/03/20 @ 16:47 by Anita Everett NP) Extraction of cataract 04/19/17 DR. CHU; B/L Hernia Repair, Incisional History of incisional hernia repair Hysterectomy, Laproscopic Laparoscopic, Ovarian Cystectomy S/P AAA repair (~12/2018) 12/11/18 [facility] [place] Status post laparoscopic hysterectomy Status post ovarian cystectomy Social History Smoking/Tobacco Use Status: Current every day Tobacco Type: cigarettes Smoking risk assessment performed?: Yes Alcohol Intake: never Drug use: Never Substance use type: does not use Do you feel safe at home: Yes Do you feel safe in your relationship?: Yes
--- NOTE | 2020-11-09 16:27 | CMDISCH_ITS ---
- If Service Date Differs Date of service: 11/09/20 Time of Service: 16:27 LACE Index Scoring Tool - Questions: Length of Stay (in days): 4 - 6 Acuity (Admit via E.D.?): Yes Comorbidities: Chronic Pulmonary Disease E.D. Visits: 2 - Answers: Total Score: 11 Risk of Readmission: High Risk Care Management Discharge Reason for Hospitalization: CAP, Fall Discharge Plan: Lilia will return home with new orders for RN, PT. She will have a resumption of MOW, which she reported that she contacted. NEPTALI obtained a prior authorization for her new prescription of Lidocaine. NEPTALI discussed her discharge with her son, Finn, who drove her home via private [employer]. She will follow up with her PCP and discharge plan of care. She will have a follow up appointment with Palliative care next week. She is happy to be going home. Patient/Family Education Needs: Review discharge instructions regarding activity levels and medications, discussion of self care needs and goals of care. Services Needed at Discharge: Home Health Care Services (RN, PT)
[2020-11-09 23:40] LABS: Thiamine (Vitamin B1), WB 221 nmol/L (70-180)
--- NOTE | 2020-11-10 08:32 | OTDS_ITS ---
Date of service: 11/10/20 Time of Service: 08:33 Occupational Therapy Notes Occupational Therapy Inpatient Discharge Summary Date: 11/10/20 for 11/09/20 discharge Dates of Service: 10/11/20- 11/09/20 Referring Doctor:Anita Everett NP OT Orders: Non-Urgent Precautions: DNR/DNI *This document serves as a summary of care, no skilled OT services provided for this documentation. PATIENT PROFILE/ADMITTING DIAGNOSIS: pt is a 80 year old female who presented to the ED after a fall with c/o pain in back and head as well as an itchy rash. She was admitted from the ED to Med Surg with the following dx malnourishment, CAP, Falls, smoker, Eczema, ASCVD, LBP, COPD, HTN, renal insufficiency. Past Medical History: Medical History Abdominal aortic aneurysm (12/31/13) 2013 3.7 cm, 2014 3.8 cm Anxiety and depression ASCVD (arteriosclerotic cardiovascular disease) (04/26/11) 04/19 [facility] [place]ATH AND RCA STENT 04/20 MPI NEG FOR ISCHEMIA 02/20 MPI ([facility]) NEG FOR ISCHEMIA COPD Eczema Essential hypertension Hypercholesterolemia IRREGULAR HEART BEAT Skin lesion Stented coronary artery STROKE Weight loss Surgical History Extraction of cataract 04/19/17 DR. CHU; B/L Hernia Repair, Incisional Hysterectomy, Laproscopic Laparoscopic, Ovarian Cystectomy S/P AAA repair (~12/2018) 12/11/18 [facility] [place]- Social History/Home Situation: Pt reports that at her baseline level of function she is (I). She notes that she falls sometimes and has a handicap apartment. She begins to speak about her having a nurse come in previously but then states that she told them to leave and felt offended. OT was unable to get a clear baseline from pt in terms of her ADLs. She states that she has 7 children all over. She also mentions that she is not interested in discussing this because it makes her angry with them. OT will talk with care management to try to get a better understanding of pts baseline. She does note that she drives short distances at times and when needed. Equipment owned/DME: Pt reports that she lives in a handicap accessible home with all DME needed SUBJECTIVE: NT OBJECTIVE: ROM: RUE AROM WFL for ADLS L UE AROM WFL for ADLs STRENGTH: RUE Shoulder flexion 3-/5, bicep 3/5, tricep 3/5, velvet steamer is symmetrical and strong LUE Shoulder flexion 3-/5, bicep 3/5, tricep 3-/5, velvet steamer is symmetrical and strong FUNCTIONAL MOBILITY/ADLS: Sit-stand: (S) Stand-sit: (S) Bed-Chair: (S) BATHING: standing at sink with FWW Upper Body: (I) face, (B) UE and abdomen Lower Body: (I) DRESSING: standing at sink with FWW, min vc throughout Upper Extremity: (I) don and doffing hospital gown Lower Extremity: (I) don and doffing slippers and pants GROOMING: standing at sink with FWW (I) with brushing hair BALANCE: Static sitting Good Dynamic Sitting Good ASSESSMENT: Patient is a 80-year-old female referred to occupational therapy services with diagnosis of malnourishment, CAP, Falls, smoker, Eczema, ASCVD, LBP, COPD, HTN, renal insufficiency. Pt was seen for 4 skilled OT sessions. She has made significant gains in terms of the ADL/IADL routines. GOALS- All Met 1. Grooming- standing at sink (I) with brushing teeth and hair 2. Dressing- sitting in chair (I) UE, min (A) LE 3. Bathing- sitting in chair (I) UE/LE 4. Toileting- on toilet min (A) 5. Eating- (I) PLAN OF CARE/TREATMENT PLAN: Pt was discharged home and cleared per MD on 11/09/20. DISCHARGE RECOMMENDATIONS Based on pts current level of function and impairment level findings, OT does feel that pt would benefit to go to SNF vs. Home with services. TREATMENT TIME/MINUTES/CODES N/A Joanie Juarez OTR/[facility]
--- NOTE | 2020-11-11 13:25 | PT.INDS ---
Date of service: 11/11/20 Time of Service: 13:25 PT Notes Visit Reasons: CAP, FALL Physical Therapy Inpatient Discharge Summary Date: 11/11/2020 Dates of Service: 11/04/2020 through 11/08/2020 This is a clinical summary of care provided on the duration of dates listed above. No charge was made in the completion of this documentation. Referring Doctor: Anita Everett NP PT Orders: PT CONSULT: Eval/treat. Precautions: Fall. Standard. Activity as tolerated. Hard of hearing. Patient Profile/Admitting Diagnosis: Lilia is a 80-year-old female with past medical history significant for ASCVD, COPD, low back pain, chronic smoking, hypertension, and renal insufficiency now with new diagnoses of community-acquired pneumonia, repeated falls, and malnutrition. PMHX: Medical History Abdominal aortic aneurysm (12/31/13) 2013 3.7 cm, 2014 3.8 cm Anxiety and depression ASCVD (arteriosclerotic cardiovascular disease) (04/26/11) [place] [facility] [place] 04/20 MPI NEG FOR ISCHEMIA 02/20 MPI ([facility]) NEG FOR ISCHEMIA COPD Eczema Essential hypertension Hypercholesterolemia IRREGULAR HEART BEAT Skin lesion Stented coronary artery STROKE Weight loss Surgical History Extraction of cataract 04/19/17 DR. CHU; B/L Hernia Repair, Incisional Hysterectomy, Laproscopic Laparoscopic, Ovarian Cystectomy S/P AAA repair (~12/2018) 12/11/18 [facility] [place] Social History/Home Situation: Unable to get a clear history from patient at this time. Patient states that initially she lives alone but then goes on to say that her son Finn now lives with her. Indicates that she has all the equipment at home. Complained about the state taking out her home health services. Equipment Owned/DME: Patient states that she has 3 hospital beds, front-wheeled walker, 4-wheeled walker, and bedside commode. Subjective: NT. See most recent ACCOUNT CONTACT ASSOCIATE notes. Objective: General Observation: NT. See most recent ACCOUNT CONTACT ASSOCIATE notes. Mental Status: NT. See most recent ACCOUNT CONTACT ASSOCIATE notes. Pain: NT. See most recent ACCOUNT CONTACT ASSOCIATE notes. ROM: Right Upper Extremity: Lacks about 50% of available active range Left Upper Extremity: Lacks about 50% of available active range Right Lower Extremity: Lacks about 50% of available active range Left Lower Extremity: Lacks about 50% of available active range Strength: Right Upper Extremity: Grossly 3-/5 Left Upper Extremity: Grossly 3-/5 Right Lower Extremity: Grossly 3-/5 Left Lower Extremity:Grossly 3-/5 Bed Mobility/Transfers: Rolling supervision Supine to sit supervision Sit to supine supervision Sit to stand supervision Stand to sit supervision Bed to chair supervision Chair commode to bed supervision Gait: Up to 900 feet of level surface ambulation using the FWW with 1 seated rest and minimla SOB. Balance: Static Sitting: Normal Dynamic Sitting: Normal Static Standing: Fair Dynamic Standing: Fair Assessment: Lilia continues to demonstrate functional mobility decline requiring supervision for all transfer task performance. Barriers to achieving goals include limited compliance, hearing impairment, and poor motivation. Will have ACCOUNT CONTACT ASSOCIATE re-approach this weekend to offer services. Patient will benefit from custodial facility placement for continued skilled physical therapy services in order to progress mobility level, strength, and balance. Patient continues to present with clinical signs and symptoms consistent with current/admitting diagnoses that have resulted to mobility limitations, gait instability, generalized weakness, and impairment of motor control as demonstrated by the following impairment level findings: 1. Decreased strength to B UE/LE major muscle groups 2. Impaired sitting/standing balance 3. Impaired activity tolerance 4. Lack of insight to functional deficits Impairments are continuing to contribute to the following functional limitations: 1. Inability to safely ambulate without assistive device 2. Increase completion time for mobility ADL performance 3. Increased fall risk Goals: Goals X1 week 1. Supine-Sit supervision MET 2. Sit-Supine supervision MET 3. Sit-Stand supervision MET 4. Stand-Sit supervision MET 5. Bed-Chair supervision MET 6. Chair-Bed supervision MET 7. Contact-guard assist gait on level surface with use of front wheeled walker for at least 30 feet without report of pain nor dyspnea MET 10. Good static and dynamic standing balance/tolerance NOT MET DISCHARGE RECOMMENDATIONS: Patient will benefit from home health PT services in order to progress mobility level using least restrictive assistive ambulatory device, assess home safety, identify additional equipment needs, and establish a functional maintenance program that will increase ability of patient to remain at home. TREATMENT CODE/TIME: NE Thank you for the opportunity to participate in the care of this patient. Cindy Mendoza PT, DPT, CLT [facility], [place]
== END 2020-11-09 13:51 | disposition home health service (06) | DRG 193 ==
LOC: ER 14:01 → MS 15:07
PROVIDERS: Internal Medicine; Nurse Practitioner Family; Admitting Provider Family Medicine; Emergency Provider Student in an Organized Health Care Education/Training Program; PCP Family Medicine; Visit Provider Family Medicine
DX: J18.9 Pneumonia, unspecified organism (principal); E43 Unspecified severe protein-calorie malnutrition; Z68.1 Body mass index [BMI] 19.9 or less, adult; J44.1 Chronic obstructive pulmonary disease with (acute) exacerbation; J44.0 Chronic obstructive pulmonary disease with (acute) lower respiratory infection; W19.XXXA Unspecified fall, initial encounter; L30.9 Dermatitis, unspecified; I25.10 Atherosclerotic heart disease of native coronary artery without angina pectoris; M54.5 Low back pain; I71.4 Abdominal aortic aneurysm, without rupture; G89.29 Other chronic pain; F41.8 Other specified anxiety disorders; E78.00 Pure hypercholesterolemia, unspecified; Z86.73 Personal history of transient ischemic attack (TIA), and cerebral infarction without residual deficits; Z95.5 Presence of coronary angioplasty implant and graft; F17.210 Nicotine dependence, cigarettes, uncomplicated; I12.9 Hypertensive chronic kidney disease with stage 1 through stage 4 chronic kidney disease, or unspecified chronic kidney disease; N18.9 Chronic kidney disease, unspecified; S00.83XA Contusion of other part of head, initial encounter; S40.019A Contusion of unspecified shoulder, initial encounter; R29.6 Repeated falls; Z91.81 History of falling; R41.0 Disorientation, unspecified
CPT/HCPCS: 36410; 36415; 70544; 70547; 73552; 74177; 80048; 80053; 84145; 86850; 86900; 86901; 87040; 87798; 93005; 96361; 96374; 97163; 97166; 97530; 97535; 99223; 99224; 99232; 99233; 99239; 99285; NC; 70450; 70551; 71045; 71260; 72125; 72170; 81003; 81015; 82607; 82728; 82746; 83540; 83550; 83735; 84425; 84466; 84484; 85025; 85610; 86618; 93010; 94667; 94668; J1644; J3010; J3360; J3490; J7613

== ENCOUNTER 2021-01-03 14:46 | Emergency (ER) | payer OTHER, MEDICAID, SELFPAY ==
[2021-01-03 14:58] VITALS: BP 155/80; PULSE 83; RESP 16; TEMP 37.1; O2SAT 98
--- NOTE | 2021-01-03 15:30 | DI.CT_ITS ---
EXAM: CT HEAD WO CLINICAL HISTORY: fall from bed, GEORGE. TECHNIQUE: Imaging Protocol: Axial computed tomography images with coronal and sagittal reformatted images were created and reviewed COMPARISON: Prior CT scan 11/03/2020 FINDINGS: There are no skull fractures nor fluid in the visualized paranasal sinuses. There is no evidence of intracranial hemorrhage, mass effect, or shift of midline structures. There are no extra-axial fluid collections. The ventricles are not enlarged or shifted and there is no blo od within the ventricular system nor within the basal cisterns. Again noted is periventricular hypodensity consistent with chronic small vessel disease. IMPRESSION: Bilateral periventricular chronic white matter ischemic changes. No significant change compared to 0 11/03/2020. RADIATION DOSE DELIVERED: 610.21mGy.cm Total DLP DATA REPOSITORY: All CT scans at this facility are submitted to the National Radiology Data Registry (NRDR) Dose Index Registry (DIR) with the [employer] ([employer]). RADIATION OPTIMIZATION: All CT scans at this facility use at least one of these dose optimization te chniques: automated exposure control; mA and/or kV adjustment per patient size (includes targeted exa ms where dose is matched to clinical indication); or iterative reconstruction.
--- NOTE | 2021-01-03 15:30 | DI.RAD_ITS ---
EXAM: XR FOREARM RT CLINICAL HISTORY: fall from bed, hematoma prox forearm. TECHNIQUE: 2D digital imaging was performed. COMPARISON: CR XR HUMERUS LT from 05/04/2020 FINDINGS: There is impressive soft tissue swelling over the dorsal aspect of the proximal half of the forearm. No radiopaque foreign body in the soft tissues. No fractures evident. No radiographic evidence of osteomyelitis. No elbow joint effusion. On the AP view there are linear densities over the medial e picondyle distal humerus but these are most probably artifact lines. IMPRESSION: DATA REPOSITORY: RADIATION DOSE DELIVERED:
--- NOTE | 2021-01-03 15:30 | DI.RAD_ITS ---
EXAM: XR CHEST 2V PA LATERAL CLINICAL HISTORY: pain rt lower lateral chest, ttp ribs,fall out bed. TECHNIQUE: 2D digital imaging was performed. COMPARISON: CR XR PORTABLE CHEST AP from 11/08/2020 FINDINGS: Heart size is normal. The mediastinum is not widened. Hyperinflation again noted. Nodular infiltrate in the lateral aspect of the right upper lobe noted. Very subtle densities in the right lung seen only on the frontal view possibly related to crossing ri bs but more evident than previous. No pleural effusions. No pulmonary edema. Aortic stent valve no baltazar below the hemidiaphragms. IMPRESSION: Hyperinflation. Subtle right lung findings as described above. Follow-up CT scan recommended. DATA REPOSITORY: RADIATION DOSE DELIVERED:
--- NOTE | 2021-01-03 15:30 | NUR.NOTE ---
Nursing Note: Finn Morillo son [phone]
[2021-01-03 15:53] LABS: Abs Immature Grans 0.04 10^3/uL (0.0-0.06); Absolute Basophil Count 0.03 10^3/uL (0.0-0.2); Absolute Eosinophil Count 0.09 10^3/uL (0.0-0.7); Absolute Lymphocyte Count 1.47 10^3/uL (1.2-3.4); Absolute Monocyte Count 0.43 10^3/uL (0.1-0.8); Absolute Neutrophil Count 6.61 10^3/uL (1.2-6.7); Basophils % 0.3; HCT 40.4 % (36.0-46.0); HGB 14.1 g/dL (11.2-15.7); Immature Grans % 0.5; MCH 31.6 pg (27.0-33.0); MCHC 34.9 % (32.0-36.0); MCV 90.6 fL (80-95); MPV 9.5 fL (8.0-11.0); Neutrophils % 76.2; Nucleated RBC 0 %; Platelet Count 177 10^3/uL (130-400); RBC 4.46 10^6/uL (3.93-5.22); WBC 8.67 10^3/uL (4.4-10.8)
[2021-01-03 16:16] LABS: ALT 41 U/L (14-59); AST 35 U/L (15-37); Alkaline Phosphatase 117 U/L (46-116); Anion Gap 5.4 mmol/L (3-11); BUN 20 mg/dL (7-18); CO2 30.6 mmol/L (21.0-32.0); CREATININE 1.2 mg/dL (0.55-1.02); Calcium 9.7 mg/dL (8.5-10.1); Chloride 98 mmol/L (98-107); Estimated GFR 43.34 (mL/min/1.73m2); Glucose 101 mg/dL (74-106); Potassium 4.7 mmol/L (3.5-5.1); Sodium 134 mmol/L (136-145); Total Protein 7.3 g/dL (6.4-8.2)
[2021-01-03 16:17] LABS: Creatine Kinase 75 U/L (26-192)
--- NOTE | 2021-01-03 16:25 | DI.VRAD_ITS ---
PROCEDURE INFORMATION: Exam: CT Head Without Contrast Exam date and time: 01/03/2021 3:36 PM Age: 80 years old Clinical indication: Injury or trauma; Blunt trauma (contusions or hematomas); Consciousness not specified; Patient HX: Fall from bed, GEORGE TECHNIQUE: Imaging protocol: Computed tomography of the head without contrast. COMPARISON: CT HEAD CERVICAL SPINE WO 11/03/2020 12:32 PM FINDINGS: Brain: Age-related involutional changes and chronic microvascular ischemic disease. No evidence for acute transcortical infarct. No mass effect or midline shift. No extra-axial collection. No acute intracranial hemorrhage. Basal cisterns are patent. Cerebral ventricles: No ventriculomegaly. Bones/joints: Unremarkable. No acute fracture. Paranasal sinuses: Visualized sinuses are unremarkable. No fluid levels. Mastoid air cells: Visualized mastoid air cells are well aerated. Orbital cavity: Bilateral cataract surgery. Soft tissues: Unremarkable. IMPRESSION: No evidence for acute transcortical infarct, acute intracranial hemorrhage, or mass effect. Dictated and Authenticated by: Ben Patino MD. Ordering:ROSALIND Grace MD
--- NOTE | 2021-01-03 17:10 | DI.VRAD_ITS ---
PROCEDURE INFORMATION: Exam: XR Right Forearm Exam date and time: 01/03/2021 4:27 PM Age: 80 years old Clinical indication: Injury or trauma; Fall; Blunt trauma (contusions or hematomas); Arm, lower; Right; Injury date: 01/03/2021; Injury details: Fell out of bed, hematoma prox forearm TECHNIQUE: Imaging protocol: XR Right forearm. Views: 2 views. COMPARISON: No relevant prior studies available. FINDINGS: Bones/joints: Normal anatomic alignment. There is no evidence of acutely displaced fractures. There is no evidence of dislocation. No aggressive osseous lesions. Soft tissues: Focal soft tissue swelling in the dorsal aspect of the proximal forearm, measuring 10 cm x 2.3 cm. IMPRESSION: 1. Focal soft tissue swelling in the proximal aspect of the dorsal forearm, favoring the known subcutaneous hematoma. 2. Negative for acute skeletal pathology. Dictated and Authenticated by: Stephen Catalan MD. Ordering:ROSALIND Grace MD
--- NOTE | 2021-01-03 17:14 | DI.VRAD_ITS ---
PROCEDURE INFORMATION: Exam: XR Chest Exam date and time: 01/03/2021 3:36 PM Age: 80 years old Clinical indication: Injury or trauma; Fall; Blunt trauma (contusions or hematomas); Injury date: 01/03/2021; Injury details: Fell out of bed, pain RT lower lateral chest TECHNIQUE: Imaging protocol: XR of the chest. Views: 2 views. COMPARISON: No relevant prior studies available. FINDINGS: Lungs: Lungs are hyperinflated. Interstitial prominence in the lung apices, right worse than. This is likely due to fibrosis. Pleural spaces: Unremarkable. No pleural effusion. No pneumothorax. Heart/Mediastinum: Unremarkable. No cardiomegaly. 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 Abdomen: Abdominal aortic stent IMPRESSION: 1. Changes of emphysema with bilateral apically scarring, right worse than left. Dictated and Authenticated by: Rosario Toney MD. Ordering:ROSALIND Grace MD
--- NOTE | 2021-01-03 17:17 | W.ED.GENAD ---
Discharge Plan Disposition Patient Disposition: HOME Condition: Stable Discharge Details Clinical Impression: Traumatic hematoma of right forearm, Contusion of rib on right side Primary Care Provider: Bonilla Gill ED Provider: Sanjay Mcmillan Home Meds and New Rx's Prescriptions: No Action nicotine [Nicoderm CQ] 21 mg/24 hr patch 24 hour 1 patch TD Q24H Qty: 28 RF: 1 atenolol 25 mg tablet 25 mg PO DAILY Qty: 90 RF: 3 mupirocin 2 % ointment 1 applic topical BID Qty: 15 RF: 0 (DME) Oxygen Tank See Dose Instructions .ROUTE .MEDSUPPLY Qty: 1 RF: 0 nitroglycerin [Nitrostat] 0.4 mg tablet, sublingual 0.4 mg Sublingual PRN Qty: 25 RF: 2 albuterol sulfate [Ventolin HFA] 90 mcg/actuation HFA aerosol inhaler 2 puff IH QID PRN (Reason: shortness of breath or wheezing) Qty: 6.7 RF: 2 triamcinolone acetonide 0.1 % ointment 1 applic topical BID PRN (Reason: leg rash) 7 Days Qty: 80 RF: 1 aspirin [Ecotrin Low Strength] 81 MG tablet,delayed release (DR/EC) 1 tab PO DAILY RF: 0 [facility] 1 EACH tablet 1 tab PO DAILY RF: 0 (DME) aveva patch Qty: 1 RF: 0 pantoprazole 40 mg tablet,delayed release (DR/EC) 40 mg PO DAILY Qty: 90 RF: 3 Ensure Active High Protein Liquid 237 ml PO DAILY Qty: 90 RF: 3 fluoxetine [Prozac] 40 mg capsule 40 mg PO DAILY Qty: 90 RF: 3 amlodipine 2.5 mg tablet 2.5 mg PO BID Qty: 180 RF: 4 magnesium oxide 400 mg (241.3 mg magnesium) tablet 400 mg PO BID Qty: 180 RF: 3 thiamine mononitrate (vit B1) [Vitamin B-1 (mononitrate)] 100 mg tablet 100 mg PO DAILY Qty: 90 RF: 3 multivitamin [Multiple Vitamins] Tablet 1 tab PO BID Qty: 60 RF: 0 lidocaine [Lidoderm] 5 % Adhesive Patch,Medicated 3 patch topical Q24H Qty: 10 RF: 0 mirtazapine 15 mg Tablet 15 mg PO HS Qty: 30 RF: 0 atorvastatin [Lipitor] 80 mg tablet 40 mg PO DAILY Qty: 90 RF: 3 trazodone 50 mg tablet 25 mg PO HS PRN (Reason: insomnia) Qty: 90 RF: 3 lisinopril 40 mg Tablet 40 mg PO DAILY RF: 0 Discharge Instructions Instructions: How to Use an Incentive Spirometer (ED), Rib Fracture (ED), Fall Prevention for Older Adults (ED), Rib Contusion (ED) Additional Instructions: Please take acetaminophen (tylenol) - 650mg every 6 hours by mouth as needed for pain. Use incentive spirometer every 2 hours while awake for the next 1 week. Use lidocaine patches for your right lower rib pain. These are available [id number]. Dose according to label. Medication reconciliation could not be performed today. Please be sure to review your medications with your primary care physician and take as prescribed. Please contact your primary care physician to arrange follow-up. Return to the ER for any worsening or new concerning symptoms. Referrals: Bonilla Gill [Primary Care Provider] - Discharge Data Discharge Date/Time-TO BE ENTERED AT DEPARTURE: 01/03/21 17:51 Medical Decision Making 80-year-old female presents after fall out of bed with right forearm hematoma and pain as well as right lateral lower rib pain and tenderness. Lungs clear to auscultation, patient saturating well no respiratory distress. Abdominal exam benign. Pelvis stable with no tenderness. No spinal tenderness. Patient did hit her head during the fall and may have lost consciousness. CT of the head to assess for acute life-threatening intracranial traumatic hemorrhage was interpreted by radiology: No evidence for acute transcortical infarct, acute intracranial hemorrhage, or mass-effect. Considered pneumothorax. Chest x-ray was interpreted by radiology: Changes of emphysema with bilateral apical scarring, right worse than left. Considered forearm fracture. Forearm x-ray interpreted by radiology: Focal soft tissue swelling in the proximal aspect of the dorsal forearm favoring the known subcutaneous hematoma. Negative for acute skeletal pathology. Plan for discharge with outpatient follow-up. I spoke to the patient and also spoke with her son on the phone. Usual and customary discharge instructions were reviewed. Patient was provided incentive spirometry and lidocaine patch. HPI General Mode of arrival: ambulatory. Date/Time Provider Initiated Documentation: 01/03/21 15:08. Limitations to Documentation: no limitations. Information obtained by: patient. HPI Narrative: 80-year-old female presents with chief complaint of right forearm pain. Patient notes last night she fell out of bed to the floor and landed on her right side. She has developed swelling proximal right forearm in the area is painful. Pain is moderate and worse on palpation. Patient also notes pain in her right lateral ribs. She did hit her head during the fall. She is not sure if she lost consciousness. She has no neck pain. She notes chronic unchanged back pain. No chest pain or abdominal pain. Related Data Home Medications Medication Instructions Recorded Confirmed [facility] 1 tab PO DAILY 12/11/12 11/03/20 aspirin [Ecotrin Low Strength] 1 tab PO DAILY tab-cap 12/11/12 01/03/21 aveva #1 ea 02/04/19 10/17/20 Oxygen #1 each 02/24/19 10/17/20 nicotine 21 mg/24 hr daily 1 patch TD Q24H #28 each 05/26/19 11/03/20 transdermal patch albuterol sulfate 90 mcg/actuation 2 puff IH QID PRN #6.7 gm 08/25/19 11/03/20 aerosol inhaler nitroglycerin 0.4 mg sublingual 0.4 mg SUBLINGUAL PRN #25 tab-cap 08/25/19 01/03/21 tablet pantoprazole 40 mg tablet,delayed 40 mg PO DAILY #90 tab-cap 03/30/20 01/03/21 release atenolol 25 mg tablet 25 mg PO DAILY #90 tab-cap 05/06/20 01/03/21 food supplemt, lactose-reduced 237 ml PO DAILY #90 ea 06/10/20 11/03/20 fluoxetine 40 mg capsule 40 mg PO DAILY #90 tab-cap 07/06/20 01/03/21 mupirocin 2 % topical ointment 1 applic TOPICAL BID #15 g 10/17/20 11/03/20 amlodipine 2.5 mg tablet 2.5 mg PO BID #180 tab-cap 10/19/20 01/03/21 triamcinolone acetonide 0.1 % 1 applic TOPICAL BID PRN 7 Days 11/01/20 11/03/20 topical ointment #80 g atorvastatin [Lipitor] 40 mg PO DAILY #90 tab-cap 11/09/20 01/03/21 lidocaine [Lidoderm] 3 patch TOPICAL Q24H #10 ea 11/09/20 mirtazapine 15 mg PO HS #30 tab 11/09/20 multivitamin [Multiple Vitamins] 1 tab PO BID #60 tab 11/09/20 trazodone 25 mg PO HS PRN #90 tab-cap 11/09/20 11/03/20 magnesium oxide 400 mg (241.3 mg 400 mg PO BID #180 tab 12/23/20 magnesium) tablet thiamine mononitrate (vit B1) 100 100 mg PO DAILY #90 tab 12/23/20 mg tablet lisinopril 40 mg PO DAILY 01/03/21 01/03/21 Previous Rx's Medication Instructions Recorded nicotine 21 mg/24 hr daily 1 patch TD Q24H #28 each 05/26/19 transdermal patch albuterol sulfate 90 mcg/actuation 2 puff IH QID PRN #6.7 gm 08/25/19 aerosol inhaler nitroglycerin 0.4 mg sublingual 0.4 mg SUBLINGUAL PRN #25 tab-cap 08/25/19 tablet pantoprazole 40 mg tablet,delayed 40 mg PO DAILY #90 tab-cap 03/30/20 release atenolol 25 mg tablet 25 mg PO DAILY #90 tab-cap 05/06/20 food supplemt, lactose-reduced 237 ml PO DAILY #90 ea 06/10/20 fluoxetine 40 mg capsule 40 mg PO DAILY #90 tab-cap 07/06/20 mupirocin 2 % topical ointment 1 applic TOPICAL BID #15 g 10/17/20 amlodipine 2.5 mg tablet 2.5 mg PO BID #180 tab-cap 10/19/20 triamcinolone acetonide 0.1 % 1 applic TOPICAL BID PRN 7 Days 11/01/20 topical ointment #80 g atorvastatin [Lipitor] 40 mg PO DAILY #90 tab-cap 11/09/20 lidocaine [Lidoderm] 3 patch TOPICAL Q24H #10 ea 11/09/20 mirtazapine 15 mg PO HS #30 tab 11/09/20 multivitamin [Multiple Vitamins] 1 tab PO BID #60 tab 11/09/20 trazodone 25 mg PO HS PRN #90 tab-cap 11/09/20 magnesium oxide 400 mg (241.3 mg 400 mg PO BID #180 tab 12/23/20 magnesium) tablet thiamine mononitrate (vit B1) 100 100 mg PO DAILY #90 tab 12/23/20 mg tablet Allergies Allergy/AdvReac Type Severity Reaction Status Date / Time ciprofloxacin Allergy Severe HIVES; SOB Verified 11/16/20 10:32 gemfibrozil Allergy Severe LOSES EYE Verified 11/16/20 10:32 SIGHT talc Allergy Intermediate Other (See Verified 11/16/20 10:32 Comment) diphenhydramine Allergy Mild ITCHING Verified 11/16/20 10:32 adhesive Allergy Unknown Skin Rash Verified 11/16/20 10:32 ibuprofen Allergy Unknown unknown Verified 11/16/20 10:32 Penicillins Allergy Unknown Anaphylaxsi Verified 11/16/20 10:32 s Sulfa (Sulfonamide Allergy Unknown unknown Verified 11/16/20 10:32 Antibiotics) tetanus immune globulin Allergy Unknown unknown Verified 11/16/20 10:32 isosorbide AdvReac Severe H/A'S Verified 11/16/20 10:32 varenicline AdvReac Severe NIGHTMARES Verified 11/16/20 10:32 nabumetone AdvReac Intermediate NAUSEA; Verified 11/16/20 10:32 VOMITING simvastatin AdvReac Mild unknown Verified 11/16/20 10:32 niacin AdvReac FLUSHING; Verified 11/16/20 10:32 IRRITABILITY General Stated Complaint: Trauma JOSE L: 3 Review of Systems All systems reviewed & are unremarkable except as noted in HPI and below Cardiovascular Cardiovascular: Denies dyspnea Respiratory Respiratory: Denies dyspnea Musculoskeletal Musculoskeletal: Reports as per HPI Comments: No hip pain PFSH Medical History Abdominal aortic aneurysm (12/31/13) 2013 3.7 cm, 2014 3.8 cm 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) Anxiety and depression ASCVD (arteriosclerotic cardiovascular disease) (04/26/11) 04/19 [facility] [place] AND RCA STENT 04/20 [facility] NEG FOR ISCHEMIA 02/20 [facility] ([facility]) NEG FOR ISCHEMIA COPD Coronary artery disease Depressive disorder Diverticulosis (04/08/14) [facility] Wh[place]) Eczema Essential hypertension Gastroesophageal reflux disease + Hpylori per EGD in 2006 Heart murmur echo 2004-mild MR; EF 65% echo 2011 mod MR, EF 65% Hypercholesterolemia IRREGULAR HEART BEAT Osteoporosis Pancreatitis due to biliary obstruction Skin lesion Stented coronary artery STROKE Weight loss Surgical History Extraction of cataract 04/19/17 DR. CHU; B/L Hernia Repair, Incisional History of incisional hernia repair Hysterectomy, Laproscopic Laparoscopic, Ovarian Cystectomy S/P AAA repair (~12/2018) 12/11/18 [facility] [place] Status post laparoscopic hysterectomy Status post ovarian cystectomy Social History Smoking/Tobacco Use Status: Current every day Tobacco Type: cigarettes Smoking risk assessment performed?: Yes Alcohol Intake: never Drug use: Never Substance use type: does not use Do you feel safe at home: Yes Do you feel safe in your relationship?: Yes Exam HENMT Head: normocephalic and atraumatic Mouth: moist mucous membranes Eyes EOM: EOM intact bilaterally Neck Neck: trachea midline and supple Chest Chest: no crepitus and tenderness rib (Lower lateral ribs) Resp Auscultation: clear to auscultation bilaterally, no rales, no rhonchi and no wheezes Cardio Rate: regular rate and not tachycardic Rhythm: regular rhythm GI Palpation: soft, not firm, no guarding, no masses, not rigid and nontender Back/Spine/Pelvis Cervical Spine: cervical ROM normal and No cervical spinal tenderness Thoracic/Lumbar Spine: No thoracic spinal tenderness and No lumbar spinal tenderness Skin General skin exam: no rashes or lesions noted Neuro General: patient alert, patient awake, patient oriented x3 and tone normal Extrem Right upper extremity: elbow/forearm Details: other (hematoma right proximal forearm) Other: 2+ radial pulse, distal sensation intact Psych Appearance: grossly normal Mental Status: mental status grossly normal Speech and Movement: speech and movement normal Course Vital Signs Vital signs: Vital Signs Temperature 37.1 C 01/03/21 14:58 Pulse 83 01/03/21 14:58 Respiratory Rate 16 01/03/21 14:58 Blood Pressure 155/80 H 01/03/21 14:58 Pulse Oximetry 98 01/03/21 14:58 Temperature 37.1 C 01/03/21 14:58 Temperature Source Skin 01/03/21 14:58 Pulse 83 01/03/21 14:58 Respiratory Rate 16 01/03/21 14:58 Respiratory Effort Non-Labored 01/03/21 15:22 Respiratory Depth Normal 01/03/21 15:22 Respiratory Pattern Normal 01/03/21 15:22 Blood Pressure 155/80 H 01/03/21 14:58 Blood Pressure Position Sitting 01/03/21 14:58 Pulse Oximetry 98 01/03/21 14:58 Oxygen Delivery Method Room Air 01/03/21 14:58 Oxygen Flow Rate 0 01/03/21 14:58 Lab/Test Results Lab/Test Results: Laboratory Tests Range/Units 01/03/21 01/03/21 01/03/21 15:40 15:40 15:40 WBC (4.4-10.8) 10^3/uL 8.67 RBC (3.93-5.22) 10^6/uL 4.46 Hgb (11.2-15.7) g/dL 14.1 Hct (36.0-46.0) % 40.4 MCV (80-95) fL 90.6 MCH (27.0-33.0) pg 31.6 MCHC (32.0-36.0) % 34.9 RDW (11.7-14.6) % 12.0 Plt Count (130-400) 10^3/uL 177 MPV (8.0-11.0) fL 9.5 Immature Gran % 0.5 Neutrophils % 76.2 Lymphocytes % 17.0 Monocytes % 5.0 Eosinophils % 1.0 Basophils % 0.3 Nucleated RBC % % 0 Absolute Neutrophils (1.2-6.7) 10^3/uL 6.61 Absolute Lymphocytes (1.2-3.4) 10^3/uL 1.47 Absolute Monocytes (0.1-0.8) 10^3/uL 0.43 Absolute Eosinophils (0.0-0.7) 10^3/uL 0.09 Absolute Basophils (0.0-0.2) 10^3/uL 0.03 Sodium (136-145) mmol/L 134 L Potassium (3.5-5.1) mmol/L 4.7 Chloride (98-107) mmol/L 98 Carbon Dioxide (21.0-32.0) mmol/L 30.6 Anion Gap (3-11) mmol/L 5.4 BUN (7-18) mg/dL 20 H Creatinine (0.55-1.02) mg/dL 1.2 H Estimated GFR/1.73 m2 (mL/min/1.73m2) 43.34 Glucose (74-106) mg/dL 101 Calcium (8.5-10.1) mg/dL 9.7 Total Bilirubin (0.2-1.0) mg/dL 1.0 AST (15-37) U/L 35 ALT (14-59) U/L 41 Alkaline Phosphatase (46-116) U/L 117 H Creatine Kinase (26-192) U/L 75 Total Protein (6.4-8.2) g/dL 7.3 Albumin (3.4-5.0) g/dL 4.0
== END 2021-01-03 17:51 | disposition home or self-care (01) ==
PROVIDERS: Emergency Provider Student in an Organized Health Care Education/Training Program; PCP Family Medicine
DX: S50.11XA Contusion of right forearm, initial encounter (principal); S20.211A Contusion of right front wall of thorax, initial encounter; S09.90XA Unspecified injury of head, initial encounter; W06.XXXA Fall from bed, initial encounter
CPT/HCPCS: 36415; 80053; 82550; 99284; 70450; 71046; 73090; 85025

== ENCOUNTER 2021-11-18 17:08 | Inpatient (IN) | payer MEDICARE, MEDICAID, SELFPAY ==
[2021-11-18] VITALS (7 sets, daily range): BP systolic 156–216; BP diastolic 78–110; PULSE 75–93; RESP 14–24; TEMP 36.5–37.4; O2SAT 95–98
--- NOTE | 2021-11-18 16:45 | RT.EKG_ITS ---
APPROVED REPORT Exam: Resting ECG Reason for Exam: weakness/syncope Patient Location: E HR:85 bpm ECG Measurements Heart Rate 85 AXIS MI 145 P 85 QRSd 89 QRS 81 QT 414 T 84 QTc 493 Conclusion Sinus rhythm. Left ventricular hypertrophy. Nonspecific T abnrm, anterolateral leads...T <-0.10mV, I aVL V2-V6
--- NOTE | 2021-11-18 17:00 | DI.RAD_ITS ---
Exam(s) XR CHEST 1V IN DI DEPT EXAM: XR CHEST 1V IN DI DEPT CLINICAL HISTORY: weakness, fall. TECHNIQUE: 2D digital imaging was performed. COMPARISON: CR,XR XR CHEST 2V PA LATERAL from 01/03/2021 FINDINGS: Single AP portable view. Heart size is upper normal. The mediastinum is not widened. Lungs are clear. No infiltrates nor obvious pleural effusions. IMPRESSION: No acute pulmonary findings on this single AP portable view of the chest. No obvious fractures. DATA REPOSITORY: RADIATION DOSE DELIVERED: All CT scans at this facility use at least one of these dose optimization techniques: automated exposure control; mA and/or kV adjustment per patient size (includes targeted e xams where dose is matched to clinical indication); or iterative reconstruction.
--- NOTE | 2021-11-18 17:00 | DI.CT_ITS ---
Exam(s) CT HEAD CERVICAL SPINE WO EXAM: CT HEAD CERVICAL SPINE WO CLINICAL HISTORY: fall, L arm weakness. TECHNIQUE: Imaging Protocol: Axial computed tomography images with coronal and sagittal reformatted images were created and reviewed COMPARISON: CT CT HEAD WO from 01/03/2021 FINDINGS: BRAIN: There are no skull fractures nor fluid in the visualized paranasal sinuses. There is no evidence of intracranial hemorrhage, mass effect, or shift of midline structures. There are no extra-axial fluid collections. The ventricles are not enlarged or shifted and there is no blo od within the ventricular system nor within the basal cisterns. Again noted is abundant bilateral periventricular hypodensity consistent with chronic small vessel is chemic changes. CERVICAL SPINE: There is no evidence of acute fracture or prevertebral soft tissue swelling. There is mild degenerative anterolisthesis of C3 upon C4 related to facet arthropathy. Indeed, there is multilevel facet arthropathy. There is no significant facet joint malalignment. No significant osseous lesions evident. IMPRESSION: No acute intracranial findings on this noninfused CT scan of the brain.Chronic white matter ischemic disease, unchanged from previous. No evidence of cervical spine fracture, malalignment, nor acute compromise of the cervical spinal can al. Degenerative changes as described above. RADIATION DOSE DELIVERED: 1,115.66mGy.cm Total DLP DATA REPOSITORY: All CT scans at this facility are submitted to the National Radiology Data Registry (NRDR) Dose Index Registry (DIR) with the [employer] ([employer]). RADIATION OPTIMIZATION: All CT scans at this facility use at least one of these dose optimization te chniques: automated exposure control; mA and/or kV adjustment per patient size (includes targeted exa ms where dose is matched to clinical indication); or iterative reconstruction.
--- NOTE | 2021-11-18 17:13 | W.ED.GENAD ---
Discharge Plan Disposition Patient Disposition: [facility] INPATIENT Condition: Improving Discharge Details Clinical Impression: CVA (cerebral vascular accident) Primary Care Provider: Bonilla Gill ED Provider: Sven Ness Home Meds and New Rx's Prescriptions: No Action nicotine [Nicoderm CQ] 21 mg/24 hr patch 24 hour 1 patch TD Q24H Qty: 28 1RF mupirocin 2 % ointment 1 applic topical BID Qty: 15 0RF Rx Instructions: apply twice daily for 7 days (DME) Oxygen Tank See Dose Instructions .ROUTE .MEDSUPPLY Qty: 1 0RF Rx Instructions: As directed nitroglycerin [Nitrostat] 0.4 mg tablet, sublingual 0.4 mg Sublingual PRN Qty: 25 2RF Rx Instructions: 1 TAB SL PRN albuterol sulfate [Ventolin HFA] 90 mcg/actuation HFA aerosol inhaler 2 puff IH QID PRN (Reason: shortness of breath or wheezing) Qty: 6.7 2RF Ensure Active High Protein Liquid 237 ml PO BID Qty: 180 3RF tizanidine 2 mg tablet 2 mg PO BID PRN (Reason: muscle spasticity) Qty: 60 0RF Rx Instructions: triamcinolone acetonide 0.1 % ointment 1 applic topical BID PRN (Reason: leg rash) 7 Days Qty: 80 1RF Rx Instructions: to leg rash aspirin [Ecotrin Low Strength] 81 MG tablet,delayed release (DR/EC) 1 tab PO DAILY 0RF [facility] 1 EACH tablet 1 tab PO DAILY 0RF (DME) aveva patch Qty: 1 0RF Dose Instruction: As directed Rx Instructions: As directed amlodipine 2.5 mg tablet 2.5 mg PO BID Qty: 180 4RF magnesium oxide 400 mg (241.3 mg magnesium) tablet 400 mg PO BID Qty: 180 3RF thiamine mononitrate (vit B1) [Vitamin B-1 (mononitrate)] 100 mg tablet 100 mg PO DAILY Qty: 90 3RF multivitamin [Multiple Vitamins] Tablet 1 tab PO BID Qty: 180 3RF pantoprazole 40 mg tablet,delayed release (DR/EC) 40 mg PO DAILY Qty: 90 3RF atorvastatin [Lipitor] 80 mg tablet 40 mg PO DAILY Qty: 90 3RF atenolol 25 mg tablet 25 mg PO DAILY Qty: 90 3RF Rx Instructions: 1 TAB DAILY fluoxetine [Prozac] 40 mg capsule 40 mg PO DAILY Qty: 90 3RF Rx Instructions: 1 pill daily lidocaine [Lidoderm] 5 % Adhesive Patch,Medicated 3 patch topical Q24H Qty: 10 0RF trazodone 50 mg tablet 25 mg PO HS PRN (Reason: insomnia) Qty: 90 3RF Rx Instructions: 0.5-1 TAB HS PRN lisinopril 40 mg Tablet 40 mg PO DAILY 0RF Medical Decision Making This is an 81-year-old female brought from home by EMS. The EMS providers report the patient was noticed to have weakness of the left arm yesterday by her family. She was next visited by family this afternoon and reported to have been on the floor after falling from her wheelchair at approximately 7 this morning. On route the patient did complain of some left hip pain. On arrival the patient is hypertensive, interactive but she is edentulous and has some slightly slurred speech. She does have flaccidity of the left upper extremity and pain with palpation of the left lateral hip. Different diagnosis and brought it includes metabolic derangements UTI dehydration, electrolyte abnormality, stroke, and traumatic injury. Patient IV access established, she was referred for imaging studies, laboratory analysis and screening EKG The patient's diagnostic studies will note a white blood cell count of 15, hematocrit 38, platelets 176. Chemistries with sodium 142, potassium 3.8, chloride 105, 28, BUN 31 which is elevated over baseline creatinine 1.0, AST 50, 29 with total bili of 1.5. Troponin negative, albumin 3.8. CK 358. CT of the head and cervical spine without acute intracranial or cervical spine findings. Old ischemic changes noted. Chest x-ray without acute pulmonary findings. X-ray left hip and pelvis without evidence of acute fracture. With the patient's weakness, history of recurrent falls, current dehydration, and question of CVA she will merit admission to the hospital. The patient gave me permission to speak with her son Finn who wishes to be a primary point of contact. The patient's son states that the left arm weakness was new last night but that she has had some previous strokes. He states that the family has started paperwork and arrangement for the patient to be transitioned from her home to [facility] in [place]. The patient's son Finn and his will be available tomorrow morning. HPI General Mode of arrival: EMS. Date/Time Provider Initiated Documentation: 11/18/21 17:17. Information obtained by: patient and EMS. History of Present Illness 81 year old F presents to the emergency department with the chief complaint of Fall at home, unable to get up, left arm not working since yesterday perEMS, described as moderate, Patient started experiencing this unknown improves with No relieving factors improve symptom(s), No exacerbating factors reported . Patient notes weakness; denies fever/chills. Patient did receive the following treatments prior to arrival, none Related Data Home Medications Medication Instructions Recorded Confirmed aspirin 81 mg tablet,delayed 1 tab PO DAILY tab-cap 12/11/12 06/01/21 release (Ecotrin Low Strength) geriatric [id number] 1 tab PO DAILY 12/11/12 06/01/21 ([facility]) aveva #1 ea 02/04/19 06/01/21 Oxygen #1 each 02/24/19 06/01/21 nicotine 21 mg/24 hr daily 1 patch TD Q24H #28 each 05/26/19 06/01/21 transdermal patch (Nicoderm CQ) albuterol sulfate 90 mcg/actuation 2 puff IH QID PRN #6.7 gm 08/25/19 06/01/21 aerosol inhaler (Ventolin HFA) nitroglycerin 0.4 mg sublingual 0.4 mg SUBLINGUAL PRN #25 tab-cap 08/25/19 06/01/21 tablet (Nitrostat) mupirocin 2 % topical ointment 1 applic TOPICAL BID #15 g 10/17/20 06/01/21 amlodipine 2.5 mg tablet 2.5 mg PO BID #180 tab-cap 10/19/20 06/01/21 triamcinolone acetonide 0.1 % 1 applic TOPICAL BID PRN 7 Days 11/01/20 06/01/21 topical ointment #80 g lidocaine 5 % topical patch 3 patch TOPICAL Q24H #10 ea 11/09/20 06/01/21 (Lidoderm) trazodone 50 mg tablet 25 mg PO HS PRN #90 tab-cap 11/09/20 06/01/21 magnesium oxide 400 mg (241.3 mg 400 mg PO BID #180 tab 12/23/20 06/01/21 magnesium) tablet thiamine mononitrate (vit B1) 100 100 mg PO DAILY #90 tab 12/23/20 06/01/21 mg tablet (Vitamin B-1 (mononitrate)) lisinopril 40 mg tablet 40 mg PO DAILY 01/03/21 06/01/21 multivitamin (Multiple Vitamins) 1 tab PO BID #180 tab 02/10/21 06/01/21 food supplemt, lactose-reduced 237 ml PO BID #180 ea 03/17/21 06/01/21 (Ensure Active High Protein) tizanidine 2 mg tablet 2 mg PO BID PRN #60 tab-cap 03/17/21 06/01/21 pantoprazole 40 mg tablet,delayed 40 mg PO DAILY #90 tab-cap 04/13/21 06/01/21 release atorvastatin 80 mg tablet (Lipitor) 40 mg PO DAILY #90 tab-cap 04/14/21 06/01/21 atenolol 25 mg tablet 25 mg PO DAILY #90 tab-cap 07/05/21 fluoxetine 40 mg capsule (Prozac) 40 mg PO DAILY #90 tab-cap 07/05/21 Previous Rx's Medication Instructions Recorded nicotine 21 mg/24 hr daily 1 patch TD Q24H #28 each 05/26/19 transdermal patch (Nicoderm CQ) albuterol sulfate 90 mcg/actuation 2 puff IH QID PRN #6.7 gm 08/25/19 aerosol inhaler (Ventolin HFA) nitroglycerin 0.4 mg sublingual 0.4 mg SUBLINGUAL PRN #25 tab-cap 08/25/19 tablet (Nitrostat) mupirocin 2 % topical ointment 1 applic TOPICAL BID #15 g 10/17/20 amlodipine 2.5 mg tablet 2.5 mg PO BID #180 tab-cap 10/19/20 triamcinolone acetonide 0.1 % 1 applic TOPICAL BID PRN 7 Days 11/01/20 topical ointment #80 g lidocaine 5 % topical patch 3 patch TOPICAL Q24H #10 ea 11/09/20 (Lidoderm) trazodone 50 mg tablet 25 mg PO HS PRN #90 tab-cap 11/09/20 magnesium oxide 400 mg (241.3 mg 400 mg PO BID #180 tab 12/23/20 magnesium) tablet thiamine mononitrate (vit B1) 100 100 mg PO DAILY #90 tab 12/23/20 mg tablet (Vitamin B-1 (mononitrate)) multivitamin (Multiple Vitamins) 1 tab PO BID #180 tab 02/10/21 food supplemt, lactose-reduced 237 ml PO BID #180 ea 03/17/21 (Ensure Active High Protein) tizanidine 2 mg tablet 2 mg PO BID PRN #60 tab-cap 03/17/21 pantoprazole 40 mg tablet,delayed 40 mg PO DAILY #90 tab-cap 04/13/21 release atorvastatin 80 mg tablet (Lipitor) 40 mg PO DAILY #90 tab-cap 04/14/21 atenolol 25 mg tablet 25 mg PO DAILY #90 tab-cap 07/05/21 fluoxetine 40 mg capsule (Prozac) 40 mg PO DAILY #90 tab-cap 07/05/21 Allergies Allergy/AdvReac Type Severity Reaction Status Date / Time ciprofloxacin Allergy Severe HIVES; SOB Verified 11/18/21 17:07 gemfibrozil Allergy Severe LOSES EYE Verified 11/18/21 17:07 SIGHT talc Allergy Intermediate SOB Verified 11/18/21 17:07 diphenhydramine Allergy Mild ITCHING Verified 11/18/21 17:07 adhesive Allergy Unknown Skin Rash Verified 11/18/21 17:07 ibuprofen Allergy Unknown unknown Verified 11/18/21 17:07 Penicillins Allergy Unknown Anaphylaxsi Verified 11/18/21 17:07 s Sulfa (Sulfonamide Allergy Unknown unknown Verified 11/18/21 17:07 Antibiotics) tetanus immune globulin Allergy Unknown unknown Verified 11/18/21 17:07 isosorbide AdvReac Severe H/A'S Verified 11/18/21 17:07 varenicline AdvReac Severe NIGHTMARES Verified 11/18/21 17:07 nabumetone AdvReac Intermediate NAUSEA; Verified 11/18/21 17:07 VOMITING simvastatin AdvReac Mild unknown Verified 11/18/21 17:07 niacin AdvReac FLUSHING; Verified 11/18/21 17:07 IRRITABILITY General Stated Complaint: GenMedical JOSE L: 2 Review of Systems Narrative: Limited review of systems due to patient's difficulty with participation in history PFSH All Active Problems CVA (cerebral vascular accident) (Chronic) Underweight (Acute) Traumatic hematoma of right forearm (Acute) Contusion of rib on right side (Acute) Anxiety and depression (Acute) Delusion (Acute) Discharge planning issues (Acute) DVT prophylaxis (Acute) Confusion (Acute) Failure to thrive (Acute) Malnourished (Acute) Fall (Acute) Eczema (Chronic) ASCVD (arteriosclerotic cardiovascular disease) (Chronic 04/26/11[place] [facility] [place] NEG FOR ISCHEMIA 02/20 MPI ([facility]) NEG FOR ISCHEMIA Low back pain (Chronic) Smoker (Chronic) COPD (chronic obstructive pulmonary disease) (Chronic) Hypertension (Chronic) Renal insufficiency (Chronic) Medical History Abdominal aortic aneurysm (12/31/13) 2013 3.7 cm, 2014 3.8 cm 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 CHU; B/L Hernia Repair, Incisional History of incisional hernia repair Hysterectomy, Laproscopic Laparoscopic, Ovarian Cystectomy S/P AAA repair (~12/2018) 12[place]11[place] [facility] [place] Status post laparoscopic hysterectomy Status post ovarian cystectomy Social History Smoking/Tobacco Use Status: Current every day Tobacco Type: cigarettes Smoking risk assessment performed?: Yes Alcohol Intake: never Drug use: Never Substance use type: does not use Do you feel safe at home: Yes Do you feel safe in your relationship?: Yes Exam Narrative Exam Narrative: GEN: awake, alert, interactive, thin with muscle wasting HEAD: Normocephalic, atraumatic ENT: Mucous membranes dry, oropharynx unremarkable, External ear exam unremarkable EYES: PERRL, EOMI NECK: Full ROM, no KYLE, no menigismus CHEST/RESP: Nontender, clear to auscultation bilateral, no wheeze/rhonchi/rales CARDIOVASCULAR: Distant RRR, no murmur, rub michaela. 2+ Rad pulse bilateral ABDOMEN: Soft, nontender, no mass. +Bowel sounds EXT: Left upper extremity is flaccid. Pain with palpation left lateral hip. Neuro: conversant, speech is slurred, patient is interactive. Psych: Speech slurred at times, affect is flat Course Vital Signs Vital signs: Vital Signs Temperature 36.5 C 11/18/21 17:02 Pulse 93 H 11/18/21 17:02 Respiratory Rate 17 11/18/21 17:02 Blood Pressure 156/106 H 11/18/21 17:02 Pulse Oximetry 97 11/18/21 17:02 Temperature 36.5 C 11/18/21 17:02 Temperature Source Temporal Artery Scan 11/18/21 17:02 Pulse 93 H 11/18/21 17:02 Respiratory Rate 17 11/18/21 17:02 Blood Pressure 156/106 H 11/18/21 17:02 Blood Pressure Position Supine 11/18/21 17:02 Pulse Oximetry 97 11/18/21 17:02 Oxygen Delivery Method Room Air 11/18/21 17:02 Oxygen Flow Rate 0 11/18/21 17:02
[2021-11-18 17:25] LABS: Abs Immature Grans 0.06 10^3/uL (0.0-0.06); Absolute Basophil Count 0.02 10^3/uL (0.0-0.2); Absolute Lymphocyte Count 0.45 10^3/uL (1.2-3.4); Basophils % 0.1; HCT 38.6 % (36.0-46.0); Immature Grans % 0.4; MCH 30.7 pg (27.0-33.0); MCHC 33.7 % (32.0-36.0); MCV 91.3 fL (80-95); MPV 9.4 fL (8.0-11.0); Monocytes % 3.5; Nucleated RBC 0 %; Platelet Count 176 10^3/uL (130-400); RBC 4.23 10^6/uL (3.93-5.22); RDW-SD 43.2 fL; WBC 15.05 10^3/uL (4.4-10.8)
[2021-11-18 17:26] LABS: Absolute Monocyte Count 0.53 10^3/uL (0.1-0.8)
[2021-11-18 17:34] LABS: Bilirubin Negative (Negative); Blood Moderate (Negative); Clarity Clear (Clear); Glucose Negative (Negative); Ketones Negative (Negative); Leukocyte Esterase Negative (Negative); Nitrite Negative (Negative); Specific Gravity 1.025 (1.005-1.025); Urobilinogen 0.2 EU/dL (Up TO 0.2); pH 7.5 (5-8)
[2021-11-18 17:41] LABS: Bacteria Negative HPF (Negative); C & S Indicated? No; Casts 3-5 Hyaline LPF (Negative); Crystals Negative HPF (Negative); Epithelial Cells Rare HPF (Negative); Mucus Heavy (Negative); WBC 0-2 HPF (0-5)
--- NOTE | 2021-11-18 17:45 | DI.RAD_ITS ---
Exam(s) XR HIP LT COMPLETE AP PELVIS EXAM: XR HIP LT COMPLETE AP PELVIS CLINICAL HISTORY: fall, pain. TECHNIQUE: 2D digital imaging was performed. COMPARISON: CR XR PELVIS AP from 11/03/2020 FINDINGS: 2 views Aortic EVAR and multiple talus copying stents are noted throughout the length of the common and exter nal iliac arteries. No evidence of pelvic nor hip fracture. Additional lateral view of the left hip does not reveal a fr acture. Bone density age-appropriate. No osseous lesions. IMPRESSION: DATA REPOSITORY: RADIATION DOSE DELIVERED:
[2021-11-18 17:46] LABS: ALT 29 U/L (14-59); AST 50 U/L (15-37); Albumin 3.8 g/dL (3.4-5.0); Alkaline Phosphatase 116 U/L (46-116); Anion Gap 8.6 mmol/L (3-11); BUN 31 mg/dL (7-18); Bilirubin, Total 1.5 mg/dL (0.2-1.0); CO2 28.4 mmol/L (21.0-32.0); Calcium 9.2 mg/dL (8.5-10.1); Chloride 105 mmol/L (98-107); Estimated GFR 53.35 (mL/min/1.73m2); Glucose 105 mg/dL (74-106); Magnesium 2.2 mg/dL (1.8-2.4); Potassium 3.8 mmol/L (3.5-5.1); Sodium 142 mmol/L (136-145); Total Protein 6.9 g/dL (6.4-8.2); Troponin I < 50 ng/L (<or=60)
[2021-11-18 17:48] LABS: Creatine Kinase 358 U/L (26-192)
--- NOTE | 2021-11-18 17:56 | DI.VRAD_ITS ---
PROCEDURE INFORMATION: Exam: CT Head Without Contrast Exam date and time: 11/18/2021 17:14 Age: 81 years old Clinical indication: Other: Fall, L arm weakness; Other: Fall arm weakness TECHNIQUE: Imaging protocol: Computed tomography of the head without contrast. Other technique: STROKE PROTOCOL was implemented. COMPARISON: CT HEAD WO 01/03/2021 16:00 FINDINGS: Brain: Chronic brain No edema or hemorrhage. Cerebral ventricles: Ex vacuo dilation of the ventricular system. Paranasal sinuses: No acute sinusitis. Mastoid air cells: No mastoid effusion. Bones/joints: No acute fracture. Soft tissues: No suspicious lesions. IMPRESSION: No acute intracranial findings. ASSESSMENT: ASPECTS ([place] Stroke Program Early CT Score) is 10. PROCEDURE INFORMATION: Exam: CT Cervical Spine Without Contrast Exam date and time: 11/18/2021 17:14 Age: 81 years old Clinical indication: Other: Fall, L arm weakness; Other: Fall arm weakness TECHNIQUE: Imaging protocol: Computed tomography images of the cervical spine without contrast. COMPARISON: CT HEAD WO 01/03/2021 16:00 FINDINGS: Bones/joints: Chronic appearing mild anterior loss of height at T1. No acute fracture or subluxation. Discs/Spinal canal/Neural foramina: Multilevel degenerative changes. Degenerative appearing upper cervical listhesis. Posterior osteophytosis most pronounced at C6-C7. Multilevel neural foraminal greater than central canal stenosis. Lungs: Pulmonary emphysema. Soft tissues: No suspicious lesions. IMPRESSION: No cervical spine fracture. Dictated and Authenticated by: Sonal Grewal MD. Ordering:RENITA Machuca MD
--- NOTE | 2021-11-18 18:01 | DI.VRAD_ITS ---
PROCEDURE INFORMATION: Exam: XR Chest Exam date and time: 11/18/2021 5:14 PM Age: 81 years old Clinical indication: Other: Weakness, fall TECHNIQUE: Imaging protocol: XR of the chest. Views: 1 view. COMPARISON: CR XR CHEST 2V PA LATERAL 01/03/2021 4:10 PM FINDINGS: Lungs: Hyperinflation suggesting underlying emphysema. No acute lung infiltrates or regional consolidation. Chronic increased interstitial lung markings. No change since 01/03/2021. Pleural spaces: No pleural effusion. No pneumothorax. Heart/Mediastinum: Normal heart size. Vasculature: Aortic knob atherosclerotic calcium. No aneurysmal dilatation. Bones/joints: Degenerative thoracic spine. IMPRESSION: 1. Hyperinflation suggesting underlying emphysema. 2. No pleural effusion or pneumothorax. 3. Normal cardiac contour and mediastinal silhouette. 4. No acute skeletal injury evident on single view chest x-ray. Dictated and Authenticated by: Joe Monroy MD. Ordering:RENITA Machuca MD
--- NOTE | 2021-11-18 18:13 | DI.VRAD_ITS ---
PROCEDURE INFORMATION: Exam: XR Left Hip Exam date and time: 11/18/2021 5:52 PM Age: 81 years old Clinical indication: Other: Fall pain TECHNIQUE: Imaging protocol: XR Left hip. Views: 2 or 3 views hip with pelvis when performed. COMPARISON: CR XR PELVIS AP 11/03/2020 12:42 PM FINDINGS: Bones/joints: No evidence of pelvic fracture or diastasis. No evidence of hip fracture or dislocation. Soft tissues: No soft tissue swelling. Vasculature: Aorto bi-iliac endograft stenting. IMPRESSION: 1. No evidence of pelvic or hip fracture. 2. Aorto bi-iliac endograft stenting. 3. Although a definitive fracture is not evident of the pelvis or hip by plain film, if clinical presentation and mechanism of injury are of concern, a CT pelvis is recommended for greater degree of sensitivity. Dictated and Authenticated by: Joe Monroy MD. Ordering:RENITA Machuca MD
[2021-11-18] MEDS: Aspirin 325 MG TAB PO (18:25)
--- NOTE | 2021-11-18 18:49 | W.PM.HP.N ---
Date of service: 11/18/21 Time of Service: 18:49 Assessment and Plan Assessment and plan (1) CVA (cerebral vascular accident): Start date: 11/18/21 Status: Acute Assessment and plan: This is an 81-year-old lady fell at home on the floor having multiple falls and being wheelchair-bound. She had new onset left upper extremity weakness by report initial imaging is negative. She is hypertensive and most likely not taking her usual medications with some permissive hypertension until further imaging can be obtained. Patient is a DNR/DNI. She appears comfortable and needs to be evaluated for swallow evaluation prior to feeding. Physical therapy and occupational therapy should evaluate and treat. Long-term patient may do best with placement. Case management can assess these needs for home versus placement. Continue supportive care. (2) Hypertension: Start date: 11/18/21 Status: Chronic Assessment and plan: Patient was hypertensive in the ED and initial medications would restart present dose of lisinopril for now and having some permissive hypertension with possible acute CVA. IV hydration may exacerbate hypertension with cardiac status by history having atherosclerotic coronary artery disease and PVD. Qualifiers: Hypertension type: essential hypertension Qualified Code(s): I10 - Essential (primary) hypertension (3) Fall: Start date: 11/18/21 Status: Acute Assessment and plan: Patient is wheelchair-bound and very malnourished appearing with cachexia. Evaluate nutritional status and PT and OT to evaluate for avoidance of falls in future. Patient appears to be wheelchair-bound. Qualifiers: Encounter type: initial encounter Qualified Code(s): W19.XXXA - Unspecified fall, initial encounter (4) Dehydration: Start date: 11/18/21 Status: Acute Assessment and plan: Mild elevation in BUN and patient appears dry clinically. Gentle IV hydration and follow-up lab. (5) COPD (chronic obstructive pulmonary disease): Start date: 11/18/21 Status: Chronic Assessment and plan: Patient is on chronic inhalers and this will be continued. She appears to be having no exacerbation of COPD at this time. Qualifiers: COPD type: COPD with acute exacerbation Qualified Code(s): J44.1 - Chronic obstructive pulmonary disease with (acute) exacerbation History of Present Illness History of Present Illness Chief Complaint: Fall with left arm weakness Narrative: This is an 81-year-old female patient who lives alone at home but is checked on by her family who states that she could not use her left arm the day prior to admission and was found on the floor the day of admission had not been there since 7 in the morning. When presented to the ED via EMS and she was assessed as having a high blood pressure questioning her compliance with multiple medications. She was interactive but difficult to understand because of her being edentulous without her dentures. She did have a flaccid left upper extremity. Imaging initially did not reveal any acute process and the patient probably was mildly dehydrated along with having slightly elevated CPK initiated fluids for hydration. When I visited the patient she was asleep and did not arouse with a history of weakness and slight confusion while she was brought up to [facility] with some delusional thoughts possibly revealing underlying dementia. Patient was unable to offer any further history or review of systems. The EMR documentation of the did have some review of systems the patient denies any precipitating event causing her to fall from her chair but she is very and has poor intake and nutrition. She has had no recent fever or chills and no focalizing complaints other than her left arm weakness. She has not complained of headache. Review of Systems Narrative: 13 point review of systems otherwise unrevealing or stable. Most of review of systems per report from EMS, family and ER providers giving history. 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) ASCVD (arteriosclerotic cardiovascular disease) (04/26/11) 04/[place] [facility] [place]CA [place] 04/20 MPI NEG FOR ISCHEMIA 02/20 MPI ([facility]) NEG FOR ISCHEMIA CAP (community acquired pneumonia) COPD Coronary artery disease Depressive disorder Diverticulosis (04/08/14) haleigh (Neftali) Eczema Essential hypertension Failure to thrive Gastroesophageal reflux disease + Hpylori per EGD in 2006 Heart murmur echo 2004-mild MR; EF 65% echo 2012 mod MR, EF 65% Hypercholesterolemia IRREGULAR HEART BEAT Low back pain Malnourished Osteoporosis Pancreatitis due to biliary obstruction Renal insufficiency Skin lesion Smoker Stented coronary artery STROKE Underweight Weight loss Surgical History Extraction of cataract 04/19/17 DR. CHU; B/L Hernia Repair, Incisional History of incisional hernia repair Hysterectomy, Laproscopic Laparoscopic, Ovarian Cystectomy S/P AAA repair (~12/2018) 12/11/18 [facility] [place] Status post laparoscopic hysterectomy Status post ovarian cystectomy Social History Smoking/Tobacco Use Status: Current every day Tobacco Type: cigarettes Smoking risk assessment performed?: Yes Alcohol Intake: never Drug use: Never Substance use type: does not use Do you feel safe at home: Yes Do you feel safe in your relationship?: Yes Meds Allergies and Home Medications Allergies Allergy/AdvReac Type Severity Reaction Status Date / Time ciprofloxacin Allergy Severe HIVES; SOB Verified 11/18/21 17:07 gemfibrozil Allergy Severe LOSES EYE Verified 11/18/21 17:07 SIGHT talc Allergy Intermediate SOB Verified 11/18/21 17:07 diphenhydramine Allergy Mild ITCHING Verified 11/18/21 17:07 adhesive Allergy Unknown Skin Rash Verified 11/18/21 17:07 ibuprofen Allergy Unknown unknown Verified 11/18/21 17:07 Penicillins Allergy Unknown Anaphylaxsi Verified 11/18/21 17:07 s Sulfa (Sulfonamide Allergy Unknown unknown Verified 11/18/21 17:07 Antibiotics) tetanus immune globulin Allergy Unknown unknown Verified 11/18/21 17:07 isosorbide AdvReac Severe H/A'S Verified 11/18/21 17:07 varenicline AdvReac Severe NIGHTMARES Verified 11/18/21 17:07 nabumetone AdvReac Intermediate NAUSEA; Verified 11/18/21 17:07 VOMITING simvastatin AdvReac Mild unknown Verified 11/18/21 17:07 niacin AdvReac FLUSHING; Verified 11/18/21 17:07 IRRITABILITY Home Medications Medication Instructions Recorded Confirmed Type aspirin 81 mg tablet,delayed 1 tab PO DAILY tab-cap 12/11/12 11/18/21 History release (Ecotrin Low Strength) geriatric [id number] 1 tab PO DAILY 12/11/12 11/18/21 History ([facility]) aveva #1 ea 02/04/19 06/01/21 History Oxygen #1 each 02/24/19 06/01/21 History nicotine 21 mg/24 hr daily 1 patch TD Q24H #28 each 05/26/19 11/18/21 Rx transdermal patch (Nicoderm CQ) albuterol sulfate 90 mcg/actuation 2 puff IH QID PRN #6.7 gm 08/25/19 11/18/21 Rx aerosol inhaler (Ventolin HFA) nitroglycerin 0.4 mg sublingual 0.4 mg SUBLINGUAL PRN #25 tab-cap 08/25/19 11/18/21 Rx tablet (Nitrostat) mupirocin 2 % topical ointment 1 applic TOPICAL BID #15 g 10/17/20 11/18/21 Rx amlodipine 2.5 mg tablet 2.5 mg PO BID #180 tab-cap 10/19/20 11/18/21 Rx triamcinolone acetonide 0.1 % 1 applic TOPICAL BID PRN 7 Days 11/01/20 11/18/21 Rx topical ointment #80 g trazodone 50 mg tablet 25 mg PO HS PRN #90 tab-cap 11/09/20 11/18/21 Rx magnesium oxide 400 mg (241.3 mg 400 mg PO BID #180 tab 12/23/20 11/18/21 Rx magnesium) tablet thiamine mononitrate (vit B1) 100 100 mg PO DAILY #90 tab 12/23/20 11/18/21 Rx mg tablet (Vitamin B-1 (mononitrate)) lisinopril 40 mg tablet 40 mg PO DAILY 01/03/21 11/18/21 History multivitamin (Multiple Vitamins) 1 tab PO BID #180 tab 02/10/21 11/18/21 Rx food supplemt, lactose-reduced 237 ml PO BID #180 ea 03/17/21 11/18/21 Rx (Ensure Active High Protein) tizanidine 2 mg tablet 2 mg PO BID PRN #60 tab-cap 03/17/21 11/18/21 Rx pantoprazole 40 mg tablet,delayed 40 mg PO DAILY #90 tab-cap 04/13/21 11/18/21 Rx release atorvastatin 80 mg tablet (Lipitor) 40 mg PO DAILY #90 tab-cap 04/14/21 11/18/21 Rx atenolol 25 mg tablet 25 mg PO DAILY #90 tab-cap 07/05/21 11/18/21 Rx fluoxetine 40 mg capsule (Prozac) 40 mg PO DAILY #90 tab-cap 07/05/21 11/18/21 Rx Exam Narrative Exam Narrative: General: Patient is very thin, cachectic appearing lying bed comfortably on her left side. She is asleep. She did not awaken. Nurse to give history of patient having delusional thought to be slightly confused prior to going to sleep. HEENT: Normocephalic, eyes closed but when open pupils are equal and reactive to light symmetrically with conjugate extraocular movement and sclera anicteric. Patient did not awaken with this maneuver. Oropharynx with dry mucosa patient edentulous. Neck: Supple without JVD. Lungs: Clear to auscultation anteriorly with patient having deep breaths and good aeration. Breast: Exam deferred. Heart: Regular rate and rhythm with hyperdynamic precordium but no murmurs or gallops appreciated. No rubs. Abdomen: Scaphoid, soft and nontender throughout. No palpable hepatosplenomegaly. Genitalia/rectal: Exam deferred. Patient does have adult diaper. Extremities: Without clubbing, cyanosis or pitting edema with patient having muscle wasting diffusely and appearing cachectic. There capillary refill. Skin: Decreased turgor, normal color, warm and dry. Exam of back was not performed patient did have falls frequently and no reported open ulcerations or lacerations by the ED physician. Cool skin survey to be done by nurses with assisting. Neuro: Cranial nerves II through XII appear to be grossly intact, patient not moving her left upper extremity. She was not stimulated or awakened from full exam. Psych: Delusional thoughts adjusted to the nurse when patient was awake. Short-term memory loss. Results Imaging Imaging Studies: EXAM: ? CT HEAD ? CERVICAL SPINE WO CLINICAL HISTORY: ? fall, L arm weakness. ? TECHNIQUE:? Imaging Protocol: Axial computed tomography images with coronal and sagittal reformatted images were created and reviewed COMPARISON:? CT CT HEAD WO from 01/03/2021 FINDINGS: BRAIN: There are no skull fractures nor fluid in the visualized paranasal sinuses. There is no evidence of intracranial hemorrhage, mass effect, or shift of midline structures.? There are no extra-axial fluid collections.? The ventricles are not enlarged or shifted and there is no blood within the ventricular system nor within the basal cisterns. Again noted is abundant bilateral periventricular hypodensity consistent with chronic small vessel ischemic changes. CERVICAL SPINE: There is no evidence of acute fracture or prevertebral soft tissue swelling. There is mild degenerative anterolisthesis of C3 upon C4 related to facet arthropathy.? Indeed, there is multilevel facet arthropathy. There is no significant facet joint malalignment. No significant osseous lesions evident. IMPRESSION: No acute intracranial findings on this noninfused CT scan of the brain.Chronic white matter ischemic disease, unchanged from previous. No evidence of cervical spine fracture, malalignment, nor acute compromise of the cervical spinal canal. Degenerative changes as described above. EXAM:? XR CHEST 1V IN DI DEPT CLINICAL HISTORY: ? weakness, fall. ? TECHNIQUE:? 2D digital imaging was performed. COMPARISON:? CR,XR XR CHEST 2V PA ? LATERAL from 01/03/2021 FINDINGS: Single AP portable view. Heart size is upper normal.? The mediastinum is not widened. Lungs are clear.? No infiltrates nor obvious pleural effusions. IMPRESSION: No acute pulmonary findings on this single AP portable view of the chest. No obvious fractures. Exam: XR Left Hip Exam date and time: 11/18/2021 5:52 PM Age: 81 years old Clinical indication: Other: Fall pain TECHNIQUE: Imaging protocol: XR Left hip. Views: 2 or 3 views hip with pelvis when performed. COMPARISON: CR XR PELVIS AP 11/03/2020 12:42 PM FINDINGS: Bones/joints: No evidence of pelvic fracture or diastasis. No evidence of hip fracture or dislocation. Soft tissues: No soft tissue swelling. Vasculature: Aorto bi-iliac endograft stenting. IMPRESSION: 1. No evidence of pelvic or hip fracture. 2. Aorto bi-iliac endograft stenting. 3. Although a definitive fracture is not evident of the pelvis or hip by plain film, if clinical presentation and mechanism of injury are of concern, a CT pelvis is recommended for greater degree of sensitivity. Labs Result diagrams: 11/19/21 06:30 11/19/21 06:30 Labs: Laboratory Results - last 24 hr 11/18/21 11/18/21 11/18/21 17:17 17:17 17:17 WBC 15.05 H RBC 4.23 Hgb 13.0 Hct 38.6 MCV 91.3 MCH 30.7 MCHC 33.7 RDW 13.0 Plt Count 176 MPV 9.4 Immature Gran % 0.4 Neutrophils % 93.0 Lymphocytes % 3.0 Monocytes % 3.5 Eosinophils % 0.0 Basophils % 0.1 Nucleated RBC % 0 Absolute Neutrophils 14.00 H Absolute Lymphocytes 0.45 L Absolute Monocytes 0.53 Absolute Eosinophils 0.00 Absolute Basophils 0.02 Sodium 142 Potassium 3.8 Chloride 105 Carbon Dioxide 28.4 Anion Gap 8.6 BUN 31 H Creatinine 1.0 Estimated GFR/1.73 m2 53.35 Glucose 105 Calcium 9.2 Magnesium 2.2 Total Bilirubin 1.5 H AST 50 H ALT 29 Alkaline Phosphatase 116 Creatine Kinase 358 H Troponin I < 50 Total Protein 6.9 Albumin 3.8 Urine Color Urine Clarity Urine pH Ur Specific [place] Urine Protein Urine Ketones Urine Blood Urine Nitrite Urine Bilirubin Urine Urobilinogen Ur Leukocyte Esterase Urine RBC Urine WBC Ur Epithelial Cells Urine Crystals Urine Bacteria Urine Casts Urine Mucus Ur Culture Indicated? Urine Glucose 11/18/21 17:28 WBC RBC Hgb Hct MCV MCH MCHC RDW Plt Count MPV Immature Gran % Neutrophils % Lymphocytes % Monocytes % Eosinophils % Basophils % Nucleated RBC % Absolute Neutrophils Absolute Lymphocytes Absolute Monocytes Absolute Eosinophils Absolute Basophils Sodium Potassium Chloride Carbon Dioxide Anion Gap BUN Creatinine Estimated GFR/1.73 m2 Glucose Calcium Magnesium Total Bilirubin AST ALT Alkaline Phosphatase Creatine Kinase Troponin I Total Protein Albumin Urine Color Yellow Urine Clarity Clear Urine pH 7.5 Ur Specific [place] 1.025 Urine Protein >=300 H Urine Ketones Negative Urine Blood Moderate H Urine Nitrite Negative Urine Bilirubin Negative Urine Urobilinogen 0.2 Ur Leukocyte Esterase Negative Urine RBC 5-10 H Urine WBC 0-2 Ur Epithelial Cells Rare Urine Crystals Negative Urine Bacteria Negative Urine Casts 3-5 Hyaline Urine Mucus Heavy Ur Culture Indicated? No Urine Glucose Negative Last Vital Signs Temp 36.5 C 11/18/21 17:02 Pulse 93 H 11/18/21 17:02 Resp 24 11/18/21 17:37 BP 156/106 H 11/18/21 17:02 Pulse Ox 97 11/18/21 17:02
[2021-11-18 18:53] LABS: COVID-19 PCR Negative (Negative); Influenza A PCR Negative (Negative); Influenza B PCR Negative (Negative); RSV PCR Negative (Negative)
[2021-11-18 18:54] LABS: Source Nasopharynx
[2021-11-18 19:15] LABS: TSH (W/Ref FT4) 1.92 uIU/mL (0.36-3.74)
[2021-11-18] MEDS: amLODIPine 2.5 MG TAB PO (20:15)
[2021-11-18] MEDS: Magnesium Oxide 400 MG TAB PO (20:16)
[2021-11-18] MEDS: Heparin 5,000 UNITS/ML VIAL 5000 UNITS SC (20:16)
[2021-11-18 20:42] LABS: Troponin I < 50 ng/L (<or=60)
[2021-11-18] MEDS: Atenolol 25 MG TAB PO (21:00)
[2021-11-18] MEDS: Lisinopril 20 MG TAB PO (21:00)
[2021-11-18] MEDS: Normal Saline 1,000 ML 125 ML IV (21:00)
[2021-11-19 03:20] VITALS: BP 179/87; PULSE 72; RESP 14; TEMP 36.9; O2SAT 95
[2021-11-19] MEDS: Heparin 5,000 UNITS/ML VIAL 5000 UNITS SC ×2 (04:54→14:02)
[2021-11-19] MEDS: Normal Saline 1,000 ML 125 ML IV ×3 (05:32→21:21)
[2021-11-19 06:51] LABS: Abs Immature Grans 0.02 10^3/uL (0.0-0.06); Absolute Basophil Count 0.03 10^3/uL (0.0-0.2); Absolute Eosinophil Count 0.09 10^3/uL (0.0-0.7); Absolute Lymphocyte Count 1.02 10^3/uL (1.2-3.4); Absolute Monocyte Count 0.38 10^3/uL (0.1-0.8); Absolute Neutrophil Count 5.52 10^3/uL (1.2-6.7); Basophils % 0.4; Eosinophils % 1.3; HCT 34.9 % (36.0-46.0); HGB 11.5 g/dL (11.2-15.7); Immature Grans % 0.3; Lymphocytes % 14.4; MCH 30.7 pg (27.0-33.0); MCV 93.3 fL (80-95); Monocytes % 5.4; Neutrophils % 78.2; Nucleated RBC 0 %; Platelet Count 165 10^3/uL (130-400); RBC 3.74 10^6/uL (3.93-5.22); RDW 13.2 % (11.7-14.6); RDW-SD 44.8 fL; WBC 7.06 10^3/uL (4.4-10.8)
[2021-11-19 07:14] LABS: ALT 24 U/L (14-59); AST 42 U/L (15-37); Alkaline Phosphatase 95 U/L (46-116); Anion Gap 8.4 mmol/L (3-11); BUN 30 mg/dL (7-18); CO2 25.6 mmol/L (21.0-32.0); CREATININE 0.8 mg/dL (0.55-1.02); Calcium 8.6 mg/dL (8.5-10.1); Chloride 109 mmol/L (98-107); Glucose 77 mg/dL (74-106); Potassium 3.5 mmol/L (3.5-5.1); Sodium 143 mmol/L (136-145); Total Protein 5.8 g/dL (6.4-8.2)
[2021-11-19 07:55] VITALS: BP 168/82; PULSE 74; RESP 16; TEMP 37.1; O2SAT 95
[2021-11-19] MEDS: Lisinopril 20 MG TAB PO (08:26)
[2021-11-19] MEDS: Aspirin E.C. 81 MG TABEC PO (08:26)
[2021-11-19] MEDS: amLODIPine 2.5 MG TAB PO (08:28)
[2021-11-19] MEDS: Atenolol 25 MG TAB PO (08:28)
[2021-11-19] MEDS: Atorvastatin 40 MG TAB PO (08:30)
[2021-11-19] MEDS: Pantoprazole 40 MG TABCR PO (08:30)
[2021-11-19] MEDS: Magnesium Oxide 400 MG TAB PO (08:32)
[2021-11-19] MEDS: FLUoxetine 20 MG CAP 40 MG PO (08:33)
[2021-11-19] MEDS: Thiamine 100 MG TAB PO (08:33)
[2021-11-19] MEDS: Multivitamin w/Minerals TAB 1 TAB PO (08:45)
[2021-11-19 09:26] LABS: Lab Add On Test DONE
[2021-11-19 09:35] VITALS: PULSE 75
[2021-11-19 09:39] LABS: Creatine Kinase 348 U/L (26-192)
--- NOTE | 2021-11-19 10:38 | PDOC.CMIN ---
- If Service Date Differs Date of service: 11/19/21 Time of Service: 10:38 Care Management Initial Assess REASON FOR HOSPITALIZATION:: CVA, Dehydration, Falls. PAST MEDICAL HISTORY/PAST SURGICAL HISTORY:: All Active Problems: CVA (cerebral vascular accident) (Chronic), Underweight (Acute), Traumatic hematoma of right forearm (Acute),. Contusion of rib on right side (Acute), Anxiety and depression (Acute),. Delusion (Acute), Discharge planning issues (Acute), DVT prophylaxis (Acute), Confusion (Acute), Failure to thrive (Acute), Malnourished (Acute),. Fall (Acute), Eczema (Chronic), ASCVD (arteriosclerotic cardiovascular disease) (Chronic 04/26/11) - 04/[place] [facility] [place] - 04/20 [facility] NEG FOR ISCHEMIA - 02/20 MPI ([facility]) NEG FOR ISCHEMIA, Low back pain (Chronic), Smoker (Chronic), COPD (chronic obstructive pulmonary disease) (Chronic), Hypertension (Chronic), and Renal insufficiency (Chronic). 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 Essential hypertension, Gastroesophageal reflux disease - + Hpylori per EGD in 2006, Heart murmur - echo 2004-mild MR; EF 65%, echo 2011 mod MR, EF 65%, Hypercholesterolemia, IRREGULAR HEART BEAT, Osteoporosis, Pancreatitis due to biliary obstruction, Skin lesion, Stented coronary artery, STROKE, and Weight loss. Surgical History: Extraction of cataract - 04/19/17 DR. CHU; B/L, Hernia Repair, Incisional, History of incisional hernia repair, Hysterectomy, Laproscopic, Laparoscopic, Ovarian Cystectomy - S/P AAA repair (~12/2018) - 12/11/18 [facility] [place], Status post laparoscopic hysterectomy, and. Status post ovarian cystectomy. PREVIOUS FUNCTIONAL STATUS/SOCIAL/FAMILY SUPPORTS:: Lilia lives alone in [place]. She has a son and [id number], Finn and Viktoriya, who reside in [place]. Prior to current hospitalization, Lilia was independent with her ADL's. CURRENT FUNCTIONAL STATUS:: Lilia is laying in bed when CM comes to meet with her. She appears confused and disoriented and ignores most questions asked of her. Lilia will meet with Palliative Care tomorrow. She is currently on [employer] status with a plan to transition to hospice. CM will continue to follow. ADVANCE DIRECTIVES:: [facility]ST on file; son Finn and [id number] Viktoriya are appointed as Health Care Agents. Has patient been provided with info about the portal/API?: No Did the patient sign up for the portal?: No CODE STATUS:: DNR/DNI INSURANCE COVERAGE / FINANCIAL ISSUES:: [facility] MCR replacement plan and Medicaid. CURRENT HOME/COMMUNITY SERVICES/EQUIPMENT:: No home/community services. Hospital bed, bedside commode, grab bars, tub bench, ramp, wheelchair, FWW. PRIMARY CARE PHYSICIAN:: Bonilla Gill MD ([facility]). POTENTIAL DISCHARGE NEEDS:: Hospice services. PATIENT/FAMILY EDUCATION NEEDS:: Discuss end of life care, available resources and supports. TRANSPORTATION:: Via EMS. PLAN:: Lilia is currently on comfort measures. She will meet with Palliative Care tomorrow and will likely transition to hospice care. CM will continue to follow.
[2021-11-19 11:13] VITALS: BP 130/67; PULSE 69; RESP 20; TEMP 37; O2SAT 95
--- NOTE | 2021-11-19 11:15 | W.PM.PROGNOT ---
Date of Service Date of service: 11/19/21 Time of Service: 11:16 Assessment and Plan Assessment and plan (1) CVA (cerebral vascular accident): Start date: 11/19/21 Start time: 11:24 Status: Chronic Assessment and plan: Patient found on ground, confused with flaccid left arm, different from baseline. She lives alone and normally takes care of herself. She is incoherent, with facial drooping, leaning to the left, unable to swallow, aphasic. Consult neurology, MRI/MRA pending for tomorrow, echo pending for tomorrow, lipid panel, A1c, on teley. Made NPO hold all medications until seen by [facility] as well NS at 125 (2) Hypertension: Start date: 11/19/21 Start time: 11:32 Status: Chronic Assessment and plan: allow for permissive HTN in setting of likely CVA as above Qualifiers: Hypertension type: essential hypertension Qualified Code(s): I10 - Essential (primary) hypertension (3) Fall: Start date: 11/19/21 Start time: 11:33 Status: Acute Assessment and plan: Found on ground for unknown amount of time. Monitor CPK, in 300's at this time. Qualifiers: Encounter type: initial encounter Qualified Code(s): W19.XXXA - Unspecified fall, initial encounter (4) COPD (chronic obstructive pulmonary disease): Start date: 11/19/21 Start time: 11:33 Status: Chronic Assessment and plan: not exacerbated, will have inhaler per home use Qualifiers: COPD type: COPD with acute exacerbation Qualified Code(s): J44.1 - Chronic obstructive pulmonary disease with (acute) exacerbation (5) Confusion: Start date: 11/19/21 Start time: 11:34 Status: Acute Assessment and plan: as above (6) DVT prophylaxis: Start date: 11/19/21 Start time: 11:34 Status: Acute Assessment and plan: Heparin subcu, (7) Discharge planning issues: Start date: 11/19/21 Start time: 11:34 Status: Acute Assessment and plan: Will not be able to return home in this condition discussed with Dr. Zaragoza Subjective Subjective Patient reports: other Interval history since last seen: Patient is apashic, confused, leans to the left, with left sided facial droop. She has been made NPO until speech therapy evaluates her. Unable to move left arm and follow commands. Telemetry has been placed. MRI/MRA ordered for Saturday. Neurology consult. Echo, palliative care. Exam Narrative Exam Narrative: GEN: awake, alert, confused, aphasic, leaning to the left, facial drooping, unable to follow commands thin HEAD: Normocephalic, atraumatic ENT: Mucous membranes dry, oropharynx unremarkable, External ear exam unremarkable EYES: PERRL, EOMI NECK: unable to evaluate ROM, does not follow commands CHEST/RESP: Nontender, clear to auscultation bilateral, no wheeze/rhonchi/rales CARDIOVASCULAR: Distant RRR, no murmur, rub michaela. 2+ Rad pulse bilateral ABDOMEN: Soft, nontender, no mass. +Bowel sounds EXT: Left upper extremity is flaccid. Pain with palpation left lateral hip. Neuro: aphasic speech is slurred, incoherent, does interactive. Objective Last Vital Signs Temp 37.1 C 11/19/21 07:55 Pulse 75 11/19/21 09:35 Resp 16 11/19/21 07:55 BP 168/82 H 11/19/21 07:55 Pulse Ox 95 11/19/21 07:55 Laboratory Results - last 24 hr 11/18/21 11/18/21 11/18/21 17:17 17:17 17:17 WBC 15.05 H RBC 4.23 Hgb 13.0 Hct 38.6 MCV 91.3 MCH 30.7 MCHC 33.7 RDW 13.0 Plt Count 176 MPV 9.4 Immature Gran % 0.4 Neutrophils % 93.0 Lymphocytes % 3.0 Monocytes % 3.5 Eosinophils % 0.0 Basophils % 0.1 Nucleated RBC % 0 Absolute Neutrophils 14.00 H Absolute Lymphocytes 0.45 L Absolute Monocytes 0.53 Absolute Eosinophils 0.00 Absolute Basophils 0.02 Sodium 142 Potassium 3.8 Chloride 105 Carbon Dioxide 28.4 Anion Gap 8.6 BUN 31 H Creatinine 1.0 Estimated GFR/1.73 m2 53.35 Glucose 105 Calcium 9.2 Magnesium 2.2 Total Bilirubin 1.5 H AST 50 H ALT 29 Alkaline Phosphatase 116 Creatine Kinase 358 H Troponin I < 50 Total Protein 6.9 Albumin 3.8 TSH Urine Color Urine Clarity Urine pH Ur Specific [place] Urine Protein Urine Ketones Urine Blood Urine Nitrite Urine Bilirubin Urine Urobilinogen Ur Leukocyte Esterase Urine RBC Urine WBC Ur Epithelial Cells Urine Crystals Urine Bacteria Urine Casts Urine Mucus Ur Culture Indicated? Urine Glucose COVID-19 Source SARS-CoV-2 (PCR) Influenza Type A (PCR) Influenza Type B (PCR) RSV (PCR) Add-On Test Request 11/18/21 11/18/21 11/18/21 17:17 17:28 18:10 WBC RBC Hgb Hct MCV MCH MCHC RDW Plt Count MPV Immature Gran % Neutrophils % Lymphocytes % Monocytes % Eosinophils % Basophils % Nucleated RBC % Absolute Neutrophils Absolute Lymphocytes Absolute Monocytes Absolute Eosinophils Absolute Basophils Sodium Potassium Chloride Carbon Dioxide Anion Gap BUN Creatinine Estimated GFR/1.73 m2 Glucose Calcium Magnesium Total Bilirubin AST ALT Alkaline Phosphatase Creatine Kinase Troponin I Total Protein Albumin TSH 1.92 Urine Color Yellow Urine Clarity Clear Urine pH 7.5 Ur Specific [place] 1.025 Urine Protein >=300 H Urine Ketones Negative Urine Blood Moderate H Urine Nitrite Negative Urine Bilirubin Negative Urine Urobilinogen 0.2 Ur Leukocyte Esterase Negative Urine RBC 5-10 H Urine WBC 0-2 Ur Epithelial Cells Rare Urine Crystals Negative Urine Bacteria Negative Urine Casts 3-5 Hyaline Urine Mucus Heavy Ur Culture Indicated? No Urine Glucose Negative COVID-19 Source Nasopharynx SARS-CoV-2 (PCR) Negative Influenza Type A (PCR) Negative Influenza Type B (PCR) Negative RSV (PCR) Negative Add-On Test Request 11/18/21 11/19/21 11/19/21 20:20 06:30 06:30 WBC 7.06 D RBC 3.74 L Hgb 11.5 Hct 34.9 L MCV 93.3 MCH 30.7 MCHC 33.0 RDW 13.2 Plt Count 165 MPV 10.0 Immature Gran % 0.3 Neutrophils % 78.2 Lymphocytes % 14.4 Monocytes % 5.4 Eosinophils % 1.3 Basophils % 0.4 Nucleated RBC % 0 Absolute Neutrophils 5.52 Absolute Lymphocytes 1.02 L Absolute Monocytes 0.38 Absolute Eosinophils 0.09 Absolute Basophils 0.03 Sodium 143 Potassium 3.5 Chloride 109 H Carbon Dioxide 25.6 Anion Gap 8.4 BUN 30 H Creatinine 0.8 Estimated GFR/1.73 m2 >= 60.00 Glucose 77 Calcium 8.6 Magnesium Total Bilirubin 1.0 AST 42 H ALT 24 Alkaline Phosphatase 95 Creatine Kinase Troponin I < 50 Total Protein 5.8 L Albumin 3.0 L TSH Urine Color Urine Clarity Urine pH Ur Specific [place] Urine Protein Urine Ketones Urine Blood Urine Nitrite Urine Bilirubin Urine Urobilinogen Ur Leukocyte Esterase Urine RBC Urine WBC Ur Epithelial Cells Urine Crystals Urine Bacteria Urine Casts Urine Mucus Ur Culture Indicated? Urine Glucose COVID-19 Source SARS-CoV-2 (PCR) Influenza Type A (PCR) Influenza Type B (PCR) RSV (PCR) Add-On Test Request 11/19/21 11/19/21 11/19/21 06:30 06:30 Unknown WBC RBC Hgb Hct MCV MCH MCHC RDW Plt Count MPV Immature Gran % Neutrophils % Lymphocytes % Monocytes % Eosinophils % Basophils % Nucleated RBC % Absolute Neutrophils Absolute Lymphocytes Absolute Monocytes Absolute Eosinophils Absolute Basophils Sodium Potassium Chloride Carbon Dioxide Anion Gap BUN Creatinine Estimated GFR/1.73 m2 Glucose Calcium Magnesium Total Bilirubin AST ALT Alkaline Phosphatase Creatine Kinase 348 H Troponin I Total Protein Albumin TSH Urine Color Urine Clarity Urine pH Ur Specific [place] Urine Protein Urine Ketones Urine Blood Urine Nitrite Urine Bilirubin Urine Urobilinogen Ur Leukocyte Esterase Urine RBC Urine WBC Ur Epithelial Cells Urine Crystals Urine Bacteria Urine Casts Urine Mucus Ur Culture Indicated? Urine Glucose COVID-19 Source SARS-CoV-2 (PCR) Influenza Type A (PCR) Influenza Type B (PCR) RSV (PCR) Add-On Test Request DONE Cancelled
[2021-11-19 14:10] VITALS: BP 178/76; PULSE 69; RESP 16; O2SAT 96
[2021-11-19 15:10] VITALS: PULSE 72
[2021-11-19] MEDS: Scopolamine 1 MG/3 DAYS PATCH TD (16:13)
[2021-11-19] MEDS: Senna TAB PO (21:15)
[2021-11-20] MEDS: Normal Saline Flush 10 ML SYR IVP (03:25)
[2021-11-20] MEDS: MORPHine 4 MG/ML SYR 0.5 MG IV/SC ×2 (03:25→07:27)
[2021-11-20] MEDS: Normal Saline 1,000 ML 125 ML IV (05:16)
[2021-11-20] MEDS: LORazepam 2 MG/ML VIAL IV/SC (07:28)
--- NOTE | 2021-11-20 08:04 | PCNE_ITS ---
Date of service: 11/20/21 Time of Service: 08:04 History of Present Illness History of Present Illness Chief Complaint: CVA Narrative: Lilia is an 81-year-old woman who was previously living alone. Unfortunately she had a devastating CVA and is now admitted to [facility]. I went in to see her, she was unresponsive to my voice. I did not do sternal rub. She looked like she was in discomfort with a wrinkled forehead and brow. She did not respond to gentle touch. Nursing stated that she did have a lucid moment soon after I was in to see her. Consults Consult date: 11/20/21 Requesting physician: Kevin Zaragoza Assessment and Plan Assessment and plan (1) CVA (cerebral vascular accident): Status: Acute (2) COPD (chronic obstructive pulmonary disease): Status: Chronic Qualifiers: COPD type: COPD with acute exacerbation Qualified Code(s): J44.1 - Chronic obstructive pulmonary disease with (acute) exacerbation (3) End of life care: Status: Acute Assessment and plan: I went to seeRiley in the morning and also at night twice. In the interim she was started on a morphine drip which definitely increased her comfort. It was then very low level at 1 mg/h. She did require boluses with turning. I met with her son Finn. We talked about her decline and probable inevitable . He was at peace with that. I did answer all his questions. Continue with morphine drip and adjust as necessary. She looks much more comfortable this evening than she did this morning I have spent more than 50% of time in counseling with this patient. (4) Terminal care: Status: Acute (5) Pain: Status: Acute (6) Fever: Status: Acute Review of Systems Narrative: Unable to obtain due to patient's change in mental status PFSH All Active Problems (Updated 11/21/21 @ 16:07 by Norma Ennis MD) Malnourished (Acute) Palliative care patient (Acute) Fever (Acute) Pain (Acute) Terminal care (Acute) End of life care (Acute) Dehydration (Acute) CVA (cerebral vascular accident) (Acute) Confusion (Acute) Fall (Acute) COPD (chronic obstructive pulmonary disease) (Chronic) Hypertension (Chronic) Medical History Abdominal aortic aneurysm (12/31/13) 2013 3.7 cm, 2014 3.8 cm 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) ASCVD (arteriosclerotic cardiovascular disease) (04/26/11) 04/19 [facility] [place] CATH AND RCA STENT 04/20 MPI NEG FOR ISCHEMIA 02/20 [facility] ([facility]) NEG FOR ISCHEMIA CAP (community acquired pneumonia) COPD Coronary artery disease Depressive disorder Diverticulosis (04/08/14) [place] ([place]) Eczema Essential hypertension Failure to thrive Gastroesophageal reflux disease + Hpylori per EGD in 2006 Heart murmur echo 2004-mild MR; EF 65% echo 2011 mod MR, EF 65% Hypercholesterolemia IRREGULAR HEART BEAT Low back pain Malnourished Osteoporosis Pancreatitis due to biliary obstruction Renal insufficiency Skin lesion Smoker Stented coronary artery STROKE Underweight Weight loss Surgical History Extraction of cataract 04/19/17 DR. CHU; B/L Hernia Repair, Incisional History of incisional hernia repair Hysterectomy, Laproscopic Laparoscopic, Ovarian Cystectomy S/P AAA repair (~12/2018) 12/11/18 [facility] [place] Status post laparoscopic hysterectomy Status post ovarian cystectomy Social History Smoking/Tobacco Use Status: Current every day Tobacco Type: cigarettes Smoking risk assessment performed?: Yes Alcohol Intake: never Drug use: Never Substance use type: does not use Do you feel safe at home: Yes Do you feel safe in your relationship?: Yes Exam Narrative Exam Narrative: She is receiving IV fluids. She looks uncomfortable. Her heart rate was about 85. Shallow breaths. Good bowel sounds. [place] in place. Her skin is warm at this time. Results Last Vital Signs Temp 98.6 F 11/19/21 11:13 Pulse 72 11/19/21 15:10 Resp 16 11/19/21 14:10 BP 178/76 H 11/19/21 14:10 Pulse Ox 96 11/19/21 14:10 Labs Result diagrams: 11/19/21 06:30 11/19/21 06:30 Labs: Laboratory Results - last 24 hr 11/19/21 11/19/21 06:30 06:30 Creatine Kinase 348 H Add-On Test Request DONE
--- NOTE | 2021-11-20 09:35 | TELEFU_ITS ---
Date of service: 11/20/21 Time of Service: 09:35 Nutrition Note NOTE: 81 year old female admitted with CVA with severe malnutrition ( hx of 22 lbs weight loss in last month, BMI 13.5) with COPD, HTN. Now on SUPERVISOR INSTRUMENT MAINTENANCE and to enter hospice. Per MD notes, pt at risk for aspiration, however, can have any food she wants. Family is in agreement and understand that aspiration may occur. Will provide meal, snack and beverage preferences. WIll continue to support. Time Spent in Nutritional Counseling and Treatment: 0
--- NOTE | 2021-11-20 10:24 | PT.INNT ---
Date of service: 11/20/21 Time of Service: 10:24 PT Notes Visit Reasons: CVA, Dehydration, Falls No PT services are neede at this time. Patient converted to comfort measures as of today. Thank you for the opportunity to participate in the care of this patient. Cindy Mendoza PT, DPT, CLT [facility] [place], [place]
--- NOTE | 2021-11-20 11:16 | W.PM.PROGNOT ---
Date of Service Date of service: 11/20/21 Time of Service: 11:17 Assessment and Plan Assessment and plan (1) CVA (cerebral vascular accident): Start date: 11/20/21 Start time: 11:26 Status: Acute Assessment and plan: Patient has decided to go Comfort measures. Morphine drip started seen by Dr. Navarrete (2) Hypertension: Start date: 11/20/21 Start time: 11:26 Status: Chronic Assessment and plan: as above Qualifiers: Hypertension type: essential hypertension Qualified Code(s): I10 - Essential (primary) hypertension (3) Discharge planning issues: Start date: 11/20/21 Start time: 11:27 Status: Acute Assessment and plan: Family would like her to go on hospice and transfer to facility in [place], however at this time, she is not responding with sternal rub for me. Unlikely she will make it. as above discussed with Dr. Zaragoza Subjective Subjective Patient reports: other Interval history since last seen: Patient is not responding at this time. Sternal rub done. She does not move. She had decided with her son and daughter in law in her room yesterday to go DIGITAL SOLUTION ARCHITECT. She was seen by Dr. Fletcher this am. She likely had a massive right sided stroke give her presentation, however did not want work up. She told her son and myself i want to be comfortable, I am old. Morphine drip started today as per nursing she is having pain noticeable with brow furrying and other signs. Will also order sanchez if needed for comfort. D/c IVF. Exam Narrative Exam Narrative: Elderly thin emaciated female, lying in bed not responding to sternal rub. HR regular. Breathing is regular. Per nursing she does appear in pain with movement. at this time she appears comfortable. Objective Last Vital Signs Temp 37 C 11/19/21 11:13 Pulse 72 11/19/21 15:10 Resp 16 11/19/21 14:10 BP 178/76 H 11/19/21 14:10 Pulse Ox 96 11/19/21 14:10
--- NOTE | 2021-11-20 11:23 | CMPROGNOTE_ITS ---
- If Service Date Differs Date of service: 11/20/21 Time of Service: 11:23 Care Management Progress Note S/O: Lilia was sleeping in bed when CM met with her, and she did not wake up to CM's voice. Per report, she has transitioned to comfort measures, therefore CM did not find it necessary to wake her with further stimulation. Her son has requested that she stay on IVF, although this may be reconsidered today. Palliative care will meet with her today, and discuss options with the family re garding end of life care. CM called Finn ([phone]/ [phone]), and provided an update, as Lilia has not been responsive to stimuli today. Her morphine was transitioned to a continuous drip at a low dose, per provider. CM discussed the family's wish to have her moved to a rehab facility in [place], which may not be a good option for Lilia due to her decline. Finn was in agreement with her remaining at [facility] for end of life care. He stated that her final arrangements are through [facility] in [facility]. NEPTALI also reviewed the visitation for comfort measures patients, and he stated that he and his , Viktoriya will be the two designated visitors. CM will continue to follow. A: Lilia is an 81 year old female admitted to [facility] on 11/18/21 with CVA, dehydration, falls. P: Lilia has transitioned to comfort measures. She will likely remain at [facility] for end of life care. Palliative care will discuss this with her family. Finn and Viktoriya Morillo are the two consistent visitors. Her final arrangements have been made with [facility] in [facility]. NEPTALI will continue to support discharge planning considerations with Lilia and her family.
--- NOTE | 2021-11-20 13:25 | NUR.NOTE ---
Nursing Note: Patient's MS drip initiated prior to launch time she appears to be comfortable. She has been repositioned every 2 hours. police superintendent reports that she updated family.
[2021-11-21 05:36] VITALS: BP 162/67; PULSE 88; RESP 12; TEMP 37.7; O2SAT 84
[2021-11-21] MEDS: Normal Saline Flush 10 ML SYR IVP (08:25)
[2021-11-21] MEDS: Glycopyrrolate 0.2 MG/1 ML VIAL IVP ×3 (10:04→20:36)
--- NOTE | 2021-11-21 10:13 | W.PM.PROGNOT ---
Date of Service Date of service: 11/21/21 Time of Service: 10:14 Assessment and Plan Assessment and plan (1) CVA (cerebral vascular accident): Start date: 11/21/21 Start time: 10:18 Status: Acute Assessment and plan: Patient has decided on Comfort measures after most likely large right sided stroke. unresponsive. Apenic Little to no to UOP in the sanchez. Likely will pass soon (2) End of life care: Start date: 11/21/21 Start time: 10:18 Status: Acute Assessment and plan: as above discussed with Dr. Zaragoza Subjective Subjective Patient reports: other Interval history since last seen: Unresponsive at this time. Apenic respirations, little UOP. Likely will pass in the next 24 hours. Exam Narrative Exam Narrative: Patient appears comfortable, unresponsive in bed with apenia. Little to no UOP, in sanchez. Patient will likely pass in the next 24 hours. Objective Last Vital Signs Temp 37.7 C H 11/21/21 05:36 Pulse 88 11/21/21 05:36 Resp 12 11/21/21 05:36 BP 162/67 H 11/21/21 05:36 Pulse Ox 84 L 11/21/21 05:36
--- NOTE | 2021-11-21 12:08 | CMPROGNOTE_ITS ---
- If Service Date Differs Date of service: 11/21/21 Time of Service: 12:08 Care Management Progress Note S/O: Lilia was lying in bed, unresponsive, when CM met with her. Her son, Finn, and daughter in law, Vitkoriya, were both in the room visiting. Per staff, Lilia has been grimacing, indicating that she may be in pain. CM asked for Palliative care to re visit while the family is present, in order to evaluate for pain control and potential adjustments to her medications. There is a cart with food for her family in the room, and her favorite music is being played on an ipad. Viktoriya stated that Lilia loved to crotchet, and was happy that she had a prayer shawl on her bed. CM will continue to support Lilia and her family during this difficult time. A: Lilia is an 81 year old female admitted to [facility] on 11/18/21 with CVA, dehydration, falls. P: Lilia has transitioned to comfort measures. She will likely remain at [facility] for end of life care. Palliative care will discuss this with her family. Finn and Viktoriya Morillo are the two consistent visitors. Her final arrangements have been made with [facility] in [facility]. CM will continue to support discharge planning considerations with Lilia and her family.
--- NOTE | 2021-11-21 14:39 | CHAPLAIN ---
Lilia has not been responsive today. She is on a morphine pump. Family members who are with her, believe that she is comfortable. They are playing [employer] music for her. I will continue to check in.
--- NOTE | 2021-11-21 15:55 | PCPN_ITS ---
Assessment and Plan Assessment and plan (1) End of life care: Status: Acute Assessment and plan: She has declared herself to be actively dying. She is on minimal medication. She is minimally responsive. Pain is controlled with morphine IV at 1 mg/hr. She is only getting boluses prior to personal care or repositioning. She is not moving spontaneously. Her son and daughter are at her bedside. Son shared his concerns, which I addressed, I hope, to his understanding. I expect that Lilia only has hours maybe a day or two to live. She is receiving 30 ccs/hr of normal saline. If she starts to linger beyond 3 or 4 days, would change her pump to SC and stop the fluids. Son would have to agree to this, given his concerns expressed today. (2) CVA (cerebral vascular accident): Status: Acute Assessment and plan: This is what started her on her terminal decline. (3) Fever: Status: Acute Assessment and plan: Likely due to the dying process. (4) Pain: Status: Acute Assessment and plan: Controlled with 1 mg/hr of morphine IV and boluses prn. (5) Palliative care patient: Status: Acute Assessment and plan: Seen by Dr Llamas yesterday and me in follow up today. Our team is available to see her again tomorrow if requested. (6) Malnourished: Status: Acute Assessment and plan: Long standing. Qualifiers: Malnutrition type: protein-calorie malnutrition Protein-calorie malnutrition severity: severe Qualified Code(s): E43 - Unspecified severe protein-calorie malnutrition Subjective Subjective Interval history since last seen: I was asked to see Lilia and her family today by Stephanie Swain, Needle Punch Machine Operator. Her son has been struggling with his mother's dying; her daughter is trying to support him but he has questions. Dr Llamas saw Lilia yesterday. This is a follow up to her consult. I spoke to Lilia's nurse and BAKERY DECORATOR. They report that as long as she is lying still, she is comfortable. They do notice increased comfort when she is bolused prior to position changes. She is only on 1 mg/hr of morphine. In order for the pump to run this low, she has to receive 30 ccs of NS at the same time. She is making urine, given this level of hydration. She is not taking anything by mouth. She is minimally responsive. Her son was concerned that her IVF did not contain more nutrition. He needed to be reassured that his mother was not in pain from hunger; I explained that all organs shut down as someone is leaving this world, including her GI system. She is not hungry. Sometimes giving more fluids can make her worse. He seemed to understand this explanation. We talked about other signs of dying. The nurses reported that she has felt hot to them. I explained about terminal fevers, very common in the last hours to days, usually no higher than 101 F. She does have some mottling of her distal feet, but they are still warm. We talked about Lilia being able to sense her family's presence, hear their voices, listen to her favorite music that they have playing for her. Overall, I think her son was comforted by my explanations and visit. Exam Narrative Exam Narrative: Elderly thin emaciated female, lying in bed on her left side, no facial grimace, face is relaxed, some upper airway sounds audible intermittently. No apnea observed. No myoclonus. HR is tachycardic but regular. Breathing is regular except for the upper airway gurgle. She is not struggling to breathe. Per nursing she does appear in pain with movement. at this time she appears comfortable. Her skin shows some mottling of her feet, but they are warm. Her forehead was warm but not diaphoretic. She is edentulous. Her MM are dry but not parched. She does have some mild JVD, but no LAD. Her abdomen is scaphoid. She has no palpable masses. She has a sanchez catheter in place. She does not respond to touch or voice. She is minimally responsive. She is on minimal medications, so this is her natural process of dying I explained. Objective Last Vital Signs Temp 99.9 F H 11/21/21 05:36 Pulse 88 11/21/21 05:36 Resp 12 11/21/21 05:36 BP 162/67 H 11/21/21 05:36 Pulse Ox 84 L 11/21/21 05:36
--- NOTE | 2021-11-21 17:33 | CHAPLAIN ---
I met Lilia's son Bautista, and daughter in law, Viktoriya, this afternoon. Lilia is Sikhism and Bautista accepted my offer to ask Fr. Montero to visit Lilia for anointing of the sick. I left a message with Fr. Montero. Lilia and Bautista are from [place] and will be going home this evening, and two of Lilia's granddaughters will be back to visit. Bautista shared some family history, telling me that his family, with five kids, lived in the [facility] when his father was in the [employer] and was working at the [employer] there. Lilia's about a year ago, and Bautista said Lilia was hospitalized about six months after that, and has not been doing well since.
[2021-11-22] MEDS: Normal Saline 500 ML 15 ML IV (02:26)
--- NOTE | 2021-11-22 11:03 | PDOC.CMPRO ---
- If Service Date Differs Date of service: 11/22/21 Time of Service: 11:03 Care Management Progress Note S/O: Lilia remains on comfort measures for end of life care. She is currently on a morphine drip, 1mg/hr. Per Electrocardiogram Technician, she will likely receive a visit from the local V Belt Finisher today, for the anointing of the sick, at the family's request. Her son and daughter in law have been visiting. CM will continue to follow. A: Lilia is an 81 year old female admitted to [facility] on 11/18/21 with CVA, dehydration, falls. P: Lilia has transitioned to comfort measures. She will likely remain at [facility] for end of life care. Palliative care will discuss this with her family. Finn and Viktoriya Morillo are the two consistent visitors. Her final arrangements have been made with [facility] in [facility]. CM will continue to support discharge planning considerations with Lilia and her family.
[2021-11-22] MEDS: Glycopyrrolate 0.2 MG/1 ML VIAL IVP ×2 (11:22→16:14)
--- NOTE | 2021-11-22 12:30 | W.PM.PROGNOT ---
Date of Service Date of service: 11/22/21 Time of Service: 12:30 Assessment and Plan Assessment and plan (1) End of life care: Status: Acute Assessment and plan: Continue with morphine drip and end of life measures, adjust as necessary. discussed with DR Curry. Subjective Subjective Interval history since last seen: resting comfortably on morphine infusion at 1 mg/hr. not taking PO, minimally responsive. family has been at bedside. Exam Const General: comfortable and no acute distress Nutritional Appearance: average body habitus Orientation: other (sedate) [facility] Head: normal to inspection, normocephalic and atraumatic Chest Chest: normal inspection of the chest Resp Effort & Inspection: other (even and unlabored) Objective Last Vital Signs Temp 37.7 C H 11/21/21 05:36 Pulse 88 11/21/21 05:36 Resp 12 11/21/21 05:36 BP 162/67 H 11/21/21 05:36 Pulse Ox 84 L 11/21/21 05:36
--- NOTE | 2021-11-22 16:09 | CHAPLAIN ---
I've been checking in with iLlia's family through out the day. Her daughter in law, Viktoriya, was here early this morning, and her son, Bautista, arrived this afternoon. They live in [place], [place]. Lilia's breathing has changed, with a longer pause between breaths. Viktoriya is an PLASTIC SURGERY ASSISTANT said she is aware of the process works as Lilia's body shuts down. Both Viktoriya and Bautista believe that Lilia is comfortable. Nursing staff has been coming in to reposition at regular intervals. I will continue to check in with the family. The are aware the stock grader is available 01/04. I left a message for Fr. Montero yesterday asking him to visit, and called the rectory again today. Today is his day off, but he has the information about requesting a visit for Lilia.
[2021-11-22] MEDS: Scopolamine 1 MG/3 DAYS PATCH TD (16:15)
[2021-11-23 04:31] VITALS: PULSE 94; RESP 10
[2021-11-23] MEDS: Normal Saline Flush 10 ML SYR IVP ×2 (05:15→21:13)
[2021-11-23] MEDS: LORazepam 2 MG/ML VIAL IV/SC ×6 (05:15→23:58)
[2021-11-23 09:18] VITALS: PULSE 74; RESP 10
--- NOTE | 2021-11-23 10:11 | W.PALPGNOTE ---
Date of service: 11/23/21 Time of Service: 09:30 Assessment and Plan Assessment and plan (1) End of life care: Status: Acute Assessment and plan: Lilia appears comfortable. She is unresponsive, she is not moving spontaneously. She remains on the morphine drip at 1 mg/hr. She is receiving a bolus prior to repositioning. Staff thinks she is comfortable. (2) CVA (cerebral vascular accident): Status: Acute Assessment and plan: This is what started her on her terminal decline. (3) Pain: Status: Acute Assessment and plan: Appears comfortable on 1 mg/hr of morphine with a bolus prior to repositioning. (4) Palliative care patient: Status: Acute Assessment and plan: I have seen her at home in the past. She has been seen by Dr. Llamas and Dr. Ennis while hospitalized. We will continue to follow as needed. Her life expectancy is measured in hours to days at this point. (5) Malnourished: Status: Acute Assessment and plan: Long standing. Qualifiers: Malnutrition type: protein-calorie malnutrition Protein-calorie malnutrition severity: severe Qualified Code(s): E43 - Unspecified severe protein-calorie malnutrition Subjective Subjective Interval history since last seen: Lilia was seen for follow up palliative care. She is on comfort measures on a MS pump at 1 mg/hr. She is receiving a bolus prior to repositioning. Nursing thinks she is comfortable. She appears comfortable, she is not responsive. Her RR is 10 and HR is 102. She has not had anything PO for days. She is alone in the room. Exam Narrative Exam Narrative: General: very thin, elderly female, laying in bed. She is resting, appears comfortable, does not respond to stimuli. HEENT: normocephalic, atraumatic, eyes closed, mouth is open, mucous membranes dry. Neck: supple, no JVD. Cardiovascular: tachycardic. Respiratory: respirations appear unlabored. RR 10. GI: +BS, abdomen is soft/flat, nondistended. Extremities: trace edema to LLE, extremities are thin. Objective Last Vital Signs Temp 37.7 C H 11/21/21 05:36 Pulse 74 11/23/21 09:18 Resp 10 L 11/23/21 09:18 BP 162/67 H 11/21/21 05:36 Pulse Ox 84 L 11/21/21 05:36
--- NOTE | 2021-11-23 10:25 | CMPROGNOTE_ITS ---
- If Service Date Differs Date of service: 11/23/21 Time of Service: 10:25 Care Management Progress Note S/O: Lilia was lying in bed, covered by her vincentian, made by a volunteer. Per Chaplain Yisel, the Assembler Utility Buildings did not make it to visit her yesterday, and she has requested a visit today to give her the anointing of the sick. Her son and daughter in law have been visiting daily. She has pictures of family in the room, and chau, brought in by family. She had a visit from Palliative care today, making sure that she appears comfortable. She remains unresponsive. CM will continue to follow. A: Lilia is an 81 year old female admitted to [facility] on 11/18/21 with CVA, dehydration, falls. P: Lilia has transitioned to comfort measures. She will likely remain at [facility] for end of life care. Palliative care will discuss this with her family. Finn and Viktoriya Morillo are the two consistent visitors. Her final arrangements have been made with [facility] in [facility]. CM will continue to support discharge planning considerations with Lilia and her family.
[2021-11-23] MEDS: Normal Saline 500 ML 15 ML IV (11:59)
[2021-11-23 13:39] VITALS: RESP 12
--- NOTE | 2021-11-23 14:30 | W.PM.PROGNOT ---
Date of Service Date of service: 11/23/21 Time of Service: 14:31 Assessment and Plan Assessment and plan (1) End of life care: Status: Acute Assessment and plan: Continue with morphine drip and end of life measures, adjust as necessary. discussed with DR Curry. Subjective Subjective Interval history since last seen: unresponsive, appears comfortable Exam Const General: comfortable and no acute distress Nutritional Appearance: average body habitus Orientation: other (sedate) [facility] Head: normal to inspection, normocephalic and atraumatic Chest Chest: normal inspection of the chest Resp Effort & Inspection: other (even and unlabored) Objective Last Vital Signs Temp 37.7 C H 11/21/21 05:36 Pulse 74 11/23/21 09:18 Resp 12 11/23/21 13:39 BP 162/67 H 11/21/21 05:36 Pulse Ox 84 L 11/21/21 05:36
--- NOTE | 2021-11-23 15:48 | CHAPLAIN ---
Lilia remains unresponsive for the third day. She is on comfort measures. Fr. Montero was here this afternoon to offer her anointing of the sick. Lilia's son, Bautista has been there today, he and other family members have been her the past several days. Bautista said he's hesitant to tell his mom that it's okay to go, because I'd also like to tell her that I like having her here. I suggested he tell her both those things. Lilia appears to be comfortable. She is on a morphine drip and nurses are adjusting her regularly.
[2021-11-23] MEDS: Glycopyrrolate 0.2 MG/1 ML VIAL IVP (17:17)
--- NOTE | 2021-11-24 00:47 | NUR.NOTE ---
at about 1240, patient noted not to be breathing. Nikki confirmed at about 1245
--- NOTE | 2021-11-24 02:36 | NUR.NOTE ---
called by the charge machine operator to the room. on getting to the room at about 0043, Nikki zhao auscultated pt heart and pronounced at about 0048. Body washed up and released to the Nursing casting and pasting supervisor. belongings were sent alongside. at about 0221
--- NOTE | 2021-11-24 17:22 | W.PM.DDS ---
Date of service: 11/24/21 Time of Service: 17:22 Discharge Sum: Prov Provider Primary care physician: Bonilla Gill M.D. Admitting clinician: Nelson Nair Attending physician on admission: Nelson Nair Consults: 11/19/21 09:07 Palliative Care Consult [CONS] Routine Consultation Status:: Follow-up needed Clarification:: Manage/follow per spec. Reason for consult:: goals of care Pronouncing clinician: Nelson Nair Discharge Sum: Diag PCOD Cause of : Cerebral infarction Contributing Factors (1) End of life care: Contributing factors: Atherosclerotic disease Discharge Sum: Summary Date and Time Admission Date: 11/19/2202/12/22 18:32 Date of : 11/24/21 Time of : 00:43 Summary Details: Admitted to [facility] after being found on floor son, down for unknown amount of time. She was found to have left sided facial droop, weakness, LUE flaccid arm. She was given BP medications by ED and am medications, she progressively got worse. COLST form found and discussed with family. 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 She was initiated on oral pain medication, however became unresponsive with grimacing and other indications of pain. She was placed on morphine drip, with catheter placement. She last night at 0043, pronounced at 0048. Additional Data Confirmation of as documented by pronouncing clinician: no pulse, no respirations, no heart sounds and pupils fixed and dilated Attending/PCP notified?: Yes Attending Physician: Nelson Henry Was code activated?: No Autopsy requested?: No road test examiner notified?: No Organ bank notified?: Yes Advance directives: No Hospice patient?: No
== END 2021-11-24 02:30 | disposition expired | DRG 65 ==
LOC: ER 18:46 → MS 19:40
PROVIDERS: Nurse Practitioner Family; Admitting Provider Family Medicine; Emergency Provider Emergency Medicine; PCP Family Medicine; Visit Provider Family Medicine
DX: I63.9 Cerebral infarction, unspecified (principal); J44.1 Chronic obstructive pulmonary disease with (acute) exacerbation; E46 Unspecified protein-calorie malnutrition; Z68.1 Body mass index [BMI] 19.9 or less, adult; W19.XXXA Unspecified fall, initial encounter; I10 Essential (primary) hypertension; E86.0 Dehydration; Z51.5 Encounter for palliative care; Z99.3 Dependence on wheelchair; Z66 Do not resuscitate; I25.10 Atherosclerotic heart disease of native coronary artery without angina pectoris; Z95.5 Presence of coronary angioplasty implant and graft; F32.A Depression, unspecified; K21.9 Gastro-esophageal reflux disease without esophagitis; E78.00 Pure hypercholesterolemia, unspecified; M81.0 Age-related osteoporosis without current pathological fracture; F17.210 Nicotine dependence, cigarettes, uncomplicated; M54.50 Low back pain, unspecified; R29.810 Facial weakness; R47.01 Aphasia; R13.0 Aphagia; G83.24 Monoplegia of upper limb affecting left nondominant side; I70.90 Unspecified atherosclerosis
CPT/HCPCS: 36415; 80053; 82550; 87637; 93005; 99285; 70450; 71045; 72125; 73502; 81003; 81015; 83735; 84443; 84484; 85025; 93010; 99223; 99231; 99232; 99233; J1644; J2060; J2270

== ENCOUNTER → 2021-11-20 07:37 | Outpatient (BNVA) | payer MEDICARE, MEDICAID, SELFPAY | PROVIDERS: PCP Family Medicine; Referring Provider Family Medicine; Visit Provider Psychiatry & Neurology Neurology | DX: R69 Illness, unspecified (principal) ==